=== PATIENT | female | born 1945 | race Caucasian/White ===

== ENCOUNTER 2016-03-04 12:25 | Inpatient (IN) | payer OTHER, MEDICARE ==
[~2016-03-04] VITALS: Ht 149.9 cm; Wt 74.8 kg
[~2016-03-04 12:25] MED LIST: ABILIFY 10 MG10 MG PO; ALENDRONATE SOD70 MG PO; CLONAZEPAM0.5 M2 PO; DIOVAN 160 MG160 MG PO; FLONASE120 SPRAY/ NASB; LEXAPRO 10MG10 MG PO; MULTIVITAMIN1 TAB PO; NORVASC 5MG TAB5 MG PO; OXYCODONE5 MG PO; SIMVASTATIN20 MG PO; TRAVATAN Z50 GTT/1 B OPH; VITAMIN B1100 MG PO
--- NOTE | 2016-03-04 12:25 | NUR ---
LAURA FROM HOME. LEGS BECAME WEAK LAST NIGHT (PT REPORTS THIS HAS HAPPENED TO HER BEFORE) AND SHE FELL TO THE FLOOR IN HER LIVING ROOM. REMEMBERS FALL AND DENIES LOC. FOUND THIS MORNING PRONE IN LIVING ROOM BY NEIGHBORS WHO CALLED EMS. C-COLLAR PLACED BY EMS. PAIN TO LEFT HIP WITH SHORTENING/EXTERNAL ROTATION NOTED. PAIN ON SLIGHT PALPATION TO HIP AREA BRUISING NOTED WELL. PMS NOTED DISTALLY TO HIP. TRIAGE NOTE BY NEO GALLAGHER RN
--- NOTE | 2016-03-04 12:26 | NUR ---
TO CT VIA STRETCHER.
--- NOTE | 2016-03-04 12:29 | ED MVC/FALL/TRAUMA COMPLAINT ---
History of Present Illness General Chief Complaint: Fall Stated Complaint: FALL Source: patient, old records Exam Limitations: no limitations Allergies Coded Allergies: Penicillins (Intermediate, HIVES 03/04/16) NO KNOWN ALLERGIES (10/15/15) Reconcile Medications Alendronate Sodium 70 MG TAB 1 TAB PO QW OSTEOPOROSIS (Reported) in the morning, at least 30 minutes before the first food, beverage, or medication of the day Amlodipine (Norvasc 5MG Tab) 5 MG TAB 1 TAB PO DAILY HTN (Reported) Aripiprazole (Abilify) 10 MG TAB 1 TAB PO DAILY ANXIETY (Reported) Clonazepam 0.5 MG TABLET 1 TAB PO BIDP PRN ANXIETY (Reported) Escitalopram Oxalate (Lexapro 10MG) 10 MG TAB 1 TAB PO DAILY ANXIETY ( Reported) Fluticasone Propionate (Flonase) 120 SPRAY/BOT SPR 2 SPRAY NASB DAILY HAY FEVER (Reported) Lactulose 10 GRAM/15 ML SOLUTION 15 ML PO BID CONSTIPATION (Reported) Lubiprostone (Amitiza) 24 MCG CAPSULE 1 CAP PO BID GI (Reported) Multivitamin (Multiple Vitamins) 1 TAB TAB 1 TAB PO D VITAMIN SUPP (Reported) Propranolol HCl 20 MG TABLET 1 TAB PO DAILY ANXIETY (Reported) Simvastatin (Zocor) 20 MG TAB 1 TAB PO QPM CHOLESTEROL (Reported) Thiamine (Vitamin B1) 100 MG TAB 1 TAB PO DAILY VITAMIN SUPP (Reported) Travoprost (Travatan Z Oph Beckie 0.004% 2.5ML) 50 GTT/1 BOT GTT 1 GTT OPH QPM GLAUCOMA (Reported) Valsartan (Diovan) 160 MG TAB 1 TAB PO DAILY HTN (Reported) Triage Nurses Notes Reviewed? yes Onset: Abrupt Duration: day(s): (2), constant Timing: recent history Severity: severe Severity Numbers: 10 Injuries/Fall Location: pelvis, lower extremity Method of Injury: fall Loss of Consciousness: no loss of consciousness Modifying Factors: Worsens With: movement. Associated Symptoms: denies HPI: 70-year-old female presents emergency room after she had a Mechanical fall last night around 6:00 when she states that her legs gave out causing her to fall to the ground. She now presents the emergency room complaining of left hip pain. She states that she was found by her neighbors this morning who called EMS and she was on the ground all night. The patient was given fentanyl in route by EMS with improvement in her pain. She states that she did not black out she denies any headache neck back chest or abdominal pain no arm or right leg pain. She is complaining of left leg pain emanating from the hip. No numbness or tingling she denies vomiting however states that she feels nauseous on arrival. There is no prodromal chest pain palpitations dizziness or lightheadedness prior to her fall (IZAIAH MOODY) Vital Signs & Intake/Output Vital Signs & Intake/Output Vital Signs Date Time Temp Pulse Resp B/P Pulse O2 O2 Flow FiO2 Ox Delivery Rate 03/04 1616 97.9 100 18 114/56 99 03/04 1411 98.4 102 18 97/64 97 03/04 1225 98 03/04 1225 98.2 106 22 114/60 98 Past History Travel History Traveled to [place] past 21 day No Medical History Any Pertinent Medical History? 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 No (IZAIAH MOODY) Review of Systems Review of Systems Constitutional: Reports: see HPI. All Other Systems: Reviewed and Negative Comments Review of systems: See HPI, All other systems negative. Constitutional, no chills no fever, no malaise HEENT: No visual changes no sore throat no congestion Cardiovascular: No chest pain , no palpitation Skin, n no rashes, no change in skin Respiratory: No dyspnea no cough no sputum GI: Nausea no vomiting, no diarrhea, : No dysuria Muscle skeletal: joint pain, no joint swelling, no back pain, no neck pain, Neurologic: No numbness no confusion, no headache Psych: No stress Heme/endocrine: No bruising no bleeding Immunology: No lymphadenopathy (IZAIAH MOODY) Physical Exam Physical Exam General Appearance: well developed/nourished, awake Comments: Well-developed well-nourished person in no acute distress HEENT: Normal EENT exam; PERRL, EOMI, no nystagmus. HEAD is atraumatic. moist mucous membranes. Neck: Supple, no midline tenderness atraumatic normal range of motion without pain or tenderness Back: Nontender, no CVA tenderness. Full range of motion Cardiovascular: Regular rate and rhythms no murmurs rubs Respiratory: Chest nontender.There were no bony deformities, no asymmetry. No respiratory distress. Patient speaking in full complete sentences. Breath sounds clear to auscultation bilaterally: NO W/R/R Abdomen: Soft, nontender nondistended, no appreciable organomegaly. Normal bowel sounds. No rebound/guarding, Shoulder: Atraumatic/Stable. FROM . Elbow: Atraumatic/stable. FROM. No laxity Upper arm/Forearm: Atraumatic. Nontender. 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 Skin intact. FROM Pulses: Normal/equal radial pulses bilaterally. Brisk cap refill Hip/Pelvis:Stable. Limited range of motion of the left hip secondary to pain Knee: Atraumatic/stable. FROM. No joint swelling, no effusion. No laxity. Leg: Left leg is externally rotated and shortened Nontender. No edema, 5 out of 5 strength in the lower extremity, normal dorsiflexion of great toe bilaterally, gross sensation is intact Ankle/Foot: Atraumatic/stable. Skin intact. FROM. No swelling, no effusion. No laxity on exam Pulses: Normal/equal DP/PT pulses bilaterally. Brisk cap refill Neuro: Alert oriented x3, motor sensory normal, There were no obvious focal neurologic abnormalities. Skin: No appreciable rash on exposed skin, skin is warm and dry. Psych: Mood and affect is normal, memory and judgment is normal. Core Measures ACS in differential dx? No Severe Sepsis Present: No BC x2: Yes Lactic Acid x2: Yes NS/LR Started: Yes Septic Shock Present: No (MARGARITO ABÑUELOS,IZAIAH) Progress Differential Diagnosis: abd injury, C/T/L spine injury, ext injury, ICH, pelvis injury, pnemothorax, spinal cord injury Diagnostic Imaging: Viewed by Me: CT Scan. Discussed w/RAD: CT Scan. Radiology Impression: PATIENT: BERYL PARRA PRESENT AGE: 70 PATIENT ACCOUNT NO: [id number] : 45 LOCATION: [facility] ORDERING PHYSICIAN: IZAIAH BAÑUELOS SERVICE DATE: 03/04/16- EXAM TYPE: CAT - CT CERV SPINE WO IV CONTRAST; CT HEAD WO IV CONTRAST EXAMINATION: CT OF THE HEAD WITHOUT CONTRAST CT SCAN OF THE CERVICAL SPINE WITHOUT CONTRAST CLINICAL INFORMATION: Trauma. Fall. COMPARISON: CT scan of the head dated 06/12/2010. TECHNIQUE: Contiguous axial imaging was performed from the skull base to vertex without intravenous administration of contrast. DLP: 929.84 mGy-cm. FINDINGS: CT SCAN OF THE HEAD: There is no evidence of acute intracranial hemorrhage or territorial infarction. No abnormal mass-effect or midline shift is seen. Farley to white matter differentiation is well preserved. No extra-axial fluid collections are identified. The ventricles and sulci are again found to be enlarged, very similar to the prior exam, consistent with age-related involutional change. Cavum septum vergae and pellucidum again noted. There is no abnormal attenuation within the brain parenchyma. Calcifications of the carotid siphons in the vertebrobasilar arteries are seen. Hyperostosis frontalis interna is noted. No acute calvarial fracture is seen. The osseous structures and soft tissues are normal. There is minimal partial opacification of some of the mastoid air cells, similar to the previous exam. The remaining mastoid air cells and visualized portions of the paranasal sinuses are otherwise well-aerated. CT SCAN OF THE CERVICAL SPINE: Anatomic variant of nonfusion of the posterior arch of C1 is seen. No acute fracture or dislocation is present. No abnormal prevertebral soft tissue swelling is noted. Craniocervical junction and atlantoaxial articulation are intact. There is a mild reversal of the normal cervical lordosis in the lower cervical spine, likely related to positioning within the cervical collar. There is moderate degenerative disc disease at C5-C6 and C6-C7 with disc space narrowing and vertebral endplate spurring and irregularities. There is moderate facet arthropathy, most severe along the right C4-C5 facet joint. IMPRESSION: 1. No acute intracranial pathology. 2. No acute cervical spine fracture or malalignment. 3. Age-related involutional changes in the brain, similar to prior exam. 4. Moderate degenerative disc disease in the lower cervical spine and multilevel facet arthropathy, most prominent along the right C4-C5 facet joint. DICTATED BY: YOMAIRA CARRASQUILLO MD DATE/TIME DICTATED:01/02/06 ACCOUNTS RECEIVABLE COLLECTOR:FRANC DATE/TIME TRANSCRIBED:03/04/161256 CONFIDENTIAL, DO NOT COPY WITHOUT APPROPRIATE AUTHORIZATION. <Electronically signed in Other Vendor System> SIGNED BY: YOMAIRA CARRASQUILLO MD 03/04/16 1324, PATIENT: BERYL PARRA PRESENT AGE: 70 PATIENT ACCOUNT NO: [id number] : 45 LOCATION: [facility] ORDERING PHYSICIAN: IZAIAH BAÑUELOS SERVICE DATE: 03/04/16- EXAM TYPE: CAT - CT ABD & PELVIS W/O IV CONTRAS; CT CHEST WO IV CONTRAST EXAMINATION: CT CHEST, ABDOMEN AND PELVIS WITHOUT CONTRAST CLINICAL INFORMATION: Trauma COMPARISON: CT abdomen pelvis 10/15/2015, CT chest 03/05/2009 TECHNIQUE: Multidetector volumetric CT imaging of the chest, abdomen and pelvis were obtained. Axial MIP volume rendering provided. Sagittal and coronal reformatted images were obtained. DLP: 693.20 mGy-cm. FINDINGS: CHEST: LUNGS: The central airways are patent. No focal consolidation, mass or suspicious pulmonary nodule is identified. Subsegmental atelectasis/scarring is noted within the left lower lobe. There is a stable 4 mm nodule within the anterior right upper lobe (image 238, series 5) dating back to 2009. No pneumothorax. MEDIASTINUM: Nonaneurysmal thoracic aorta. Normal cardiac size. No pericardial effusion. No mediastinal hematoma. Extensive coronary artery calcifications are noted. No mediastinal or hilar lymphadenopathy. Small calcified mediastinal lymph nodes are noted. PLEURA: There is no pleural effusion. No pleural mass or thickening. CHEST WALL/AXILLA: Soft tissues appear unremarkable. No axillary lymphadenopathy. ABDOMEN/PELVIS: LIVER, GALLBLADDER, AND BILIARY TREE: The unenhanced liver is normal in size, shape, and attenuation. No focal hepatic lesion or biliary ductal dilatation is present. Minimal dependent hyperdensity is seen within the gallbladder which may represent gravel or sludge. No gallbladder wall thickening or obvious pericholecystic inflammatory changes. PANCREAS: Unremarkable. SPLEEN: Unremarkable. ADRENAL GLANDS: Unremarkable. KIDNEYS AND URETERS: No hydronephrosis, nephrolithiasis or urolithiasis identified. Mild, nonspecific perinephric stranding. BLADDER: Grossly unremarkable. GASTROINTESTINAL TRACT: There is no bowel obstruction, free intraperitoneal air or fluid. The appendix is within normal limits. Diverticulosis is noted within the descending and sigmoid colon without CT evidence of acute diverticulitis. Large amount of stool is seen within the rectum and sigmoid colon. ABDOMINAL WALL: No significant hernia is appreciated. LYMPH NODES: No mesenteric, retroperitoneal or pelvic lymphadenopathy. VASCULAR: Nonaneurysmal abdominal aorta containing a post carotid calcification. PELVIC VISCERA: Lobular contour of the uterus again noted , likely related to underlying uterine fibroids. Of note, the endometrial cavity appears prominent measuring up to 2 cm in AP diameter, unchanged, which is thicker than expected for a postmenopausal female. This thickening may be related to an underlying fibroid rather than the endometrium. Further evaluation can be obtained with dedicated pelvic ultrasound. No adnexal masses are identified. No pelvic free fluid. OSSEOUS STRUCTURES: Osteopenia is noted. There is an old lateral left third rib fracture. There is an acute, comminuted, mildly displaced intertrochanteric fracture of the left femur. Surrounding soft tissue swelling and intramuscular thickening noted within the left thigh and iliopsoas muscle. The pelvis appears intact. No other acute fractures are identified. Chronic compression deformity of the L4 and L3 vertebral bodies. T12 vertebral augmentation changes noted. No aggressive osseous lesions. IMPRESSION: 1. No acute intrathoracic, abdominal or pelvic abnormality. 2. Acute comminuted left intertrochanteric hip fracture. No dislocation. No other acute fractures identified. 3. Other findings as described above. DICTATED BY: TOMAS CORADO DO DATE/TIME DICTATED:03/04/161257 ACCOUNTS RECEIVABLE COLLECTOR:FRANC DATE/TIME TRANSCRIBED:03/04/161257 CONFIDENTIAL, DO NOT COPY WITHOUT APPROPRIATE AUTHORIZATION. <Electronically signed in Other Vendor System> SIGNED BY: TOMAS CORADO DO 03/04/16 1321 Initial ED EKG: SINUS TACH AT 100, NO ACUTE st SEGMENT CHANGES NORMAL AXIS (IZAIAH MOODY) Plan of Care: Orders Procedure Date/time Status Nothing by Mouth 03/05 B Active Discontinue Telemetry/Monitor 03/04 1702 Active Misc Message 03/04 1635 Active ED Holding Orders 03/04 1635 Active Vital Signs 03/04 1635 Active Code Status 03/04 1635 Active Admit to inpatient 03/04 1634 Active Patient Data 03/04 1625 Active LACTIC ACID 03/04 1538 Complete BLOOD CULTURE 03/04 1533 Active URINALYSIS 03/04 1445 Active Intake & Output 03/04 1436 Active PROTHROMBIN TIME 03/04 1340 Complete TYPE & SCREEN (NOT X-MATCH) 03/04 1340 Complete [place], Insertion/Removal/Asses 03/04 1254 Active CULTURE,URINE 03/04 1254 Active Telemetry/Patient Access Director 03/04 1238 Active LACTIC ACID 03/04 1238 Complete COMPREHENSIVE METABOLIC PANEL 03/04 1238 Complete CREATINE PHOSPHOKINASE 03/04 1238 Complete CBC WITHOUT DIFFERENTIAL 03/04 1238 Complete EKG 03/04 1238 Active Current Medications Sig/Erinn Start time Last Medication Dose Stop Time Status Admin Clonazepam 0.5 MG ONCE ONE 03/04 1715 UNVr (KlonoPIN) 03/04 171 Propranolol HCl 20 MG ONCE ONE 03/04 171 UNVr (Inderal 20 MG 03/04 1715 Tablet) Laboratory Tests 03/04/16 1642: Lactic Acid 1.6 03/04/16 1352: Anion Gap 19 H, Estimated GFR 40 L, BUN/Creatinine Ratio 26.2 H, Glucose 131 H, Lactic Acid 2.5 H, Calcium 9.9, Total Bilirubin 2.2 H, AST 88 H, ALT 50, Alkaline Phosphatase 94, Creatine Kinase 3981 H, Total Protein 7.0, Albumin 4.4 , Globulin 2.6, Albumin/Globulin Ratio 1.7, PT 12.7 H, INR 1.21 H, CBC w Diff MAN DIFF ORDERED, RBC 4.35, MCV 86.7, MCH 29.4, RDW 13.9, MPV 8.0, Gran % 84.7 H, Lymphocytes % 5.3 L, Monocytes % 10.0 H, Eosinophils % 0, Basophils % 0 L, Absolute Granulocytes 16.6 H, Segmented Neutrophils 78 H, Band Neutrophils 8 H, Absolute Lymphocytes 1.0 L, Lymphocytes 7 L, Monocytes 7, Absolute Monocytes 2.0 H, Absolute Eosinophils 0, Absolute Basophils 0, Platelet Estimate VERIFIED BY SMEAR, Normocytic RBCs VERIFIED, Normochromic RBCs VERIFIED , PUBS MCHC 34.0 Microbiology 03/04 1642 BLOOD: Blood Culture - RECD 03/04 1533 BLOOD: Blood Culture - ORD 03/04 1315 URINE ROUT: Urine Culture - RECD Labs ordered patient medicated morphine 2 mg IV she was medicated with fentanyl prior to arrival by EMS CAT scans ordered 03/04/2016 12:55:15 PM patient reports pain has improved with morphine, discussed with her CAT scan results and need for admission-call was placed to ortho case was discussed with Dr. Panchal. 03/04/2016 3:12:38 PM still pending callback from orthopedist dr bermudez. Patient's denies pain at this time IV fluids are running patient was evaluated by Dr. Panchal 03/04/2016 3:27:46 PM spoke with deeper surgical PA sera who will evaluate the patient still pending callback from orthopedist. on repeat eval pt declining anything for pain when offered. 03/04/2016 3:53:37 PM surgical PA at bedside still pending callback as they're having difficulty reaching Dr. bermudez as well, case d/w dr leelee courtney admit to medicine. iv fluids runing 03/04/2016 4:47:03 PM case discussed with Dr. BERMUDEZ will come in to eval pt (IZAIAH MOODY) Departure Departure Time of Disposition: 1609 Disposition: STILL A PATIENT Condition: Stable Clinical Impression Primary Impression: Intertrochanteric fracture of left hip Secondary Impressions: Lactic acidosis, Rhabdomyolysis Referrals: RORO MERAZ,FAWAD Aleman (PCP/Family) Departure Forms: Customer Survey General Discharge Information Admission Note Spoke With: GRACIELA MERAZ,JUSTINO Documentation of Exam: Documentation of any treatments & extenuating circumstances including Concerns Regarding Discharge (functional status, medication knowledge or non-compliance, living conditions, etc.) that warrant an admission rather than observation: Patient woke her medical clearance IV fluids trend labs prior to OR fixation ortho consult (IZAIAH MOODY) PA/INTERMEDIATE TEACHER Co-Sign Statement Statement: ED Attending supervision documentation- [X] I saw and evaluated the patient. I have also reviewed all the pertinent lab results and diagnostic results. I agree with the findings and the plan of care as documented in the PA's/INTERMEDIATE TEACHER's documentation. [] I have reviewed the ED Record and agree with the PA's/INTERMEDIATE TEACHER's documentation. [] Additions or exceptions (if any) to the PAs/INTERMEDIATE TEACHER's note and plan are summarized below: [] (VICTOR MANUEL MERAZ,KATYA Nguyen)
[2016-03-04] MEDS ORDERED: LACTULOSE10 GM/152 PO (12:35)
[2016-03-04] MEDS ORDERED: PROPRANOLOL HCL20 M1 PO (12:36)
[2016-03-04] MEDS ORDERED: AMITIZA24 MC1 PO (12:36)
--- NOTE | 2016-03-04 13:15 | NUR ---
EVALUATED BY EDDA PIMENTEL IMMEDIATLY ON ARRIVAL. MEDICATED BY NEO GALLAGHER RN PRIOR TO CT (SEE EMAR) AND CURRENTLY REPORTS NO PAIN AT MOVEMENT. RE-EVAL BY EDDA AFTER CT.
--- NOTE | 2016-03-04 13:21 | CT SCAN REPORT ---
EXAMINATION: CT CHEST, ABDOMEN AND PELVIS WITHOUT CONTRAST CLINICAL INFORMATION: Trauma COMPARISON: CT abdomen pelvis 10/15/2015, CT chest 03/05/2009 TECHNIQUE: Multidetector volumetric CT imaging of the chest, abdomen and pelvis were obtained. Axial MIP volume rendering provided. Sagittal and coronal reformatted images were obtained. DLP: 693.20 mGy-cm. FINDINGS: CHEST: LUNGS: The central airways are patent. No focal consolidation, mass or suspicious pulmonary nodule is identified. Subsegmental atelectasis/scarring is noted within the left lower lobe. There is a stable 4 mm nodule within the anterior right upper lobe (image 238, series 5) dating back to 2009. No pneumothorax. MEDIASTINUM: Nonaneurysmal thoracic aorta. Normal cardiac size. No pericardial effusion. No mediastinal hematoma. Extensive coronary artery calcifications are noted. No mediastinal or hilar lymphadenopathy. Small calcified mediastinal lymph nodes are noted. PLEURA: There is no pleural effusion. No pleural mass or thickening. CHEST WALL/AXILLA: Soft tissues appear unremarkable. No axillary lymphadenopathy. ABDOMEN/PELVIS: LIVER, GALLBLADDER, AND BILIARY TREE: The unenhanced liver is normal in size, shape, and attenuation. No focal hepatic lesion or biliary ductal dilatation is present. Minimal dependent hyperdensity is seen within the gallbladder which may represent gravel or sludge. No gallbladder wall thickening or obvious pericholecystic inflammatory changes. PANCREAS: Unremarkable. SPLEEN: Unremarkable. ADRENAL GLANDS: Unremarkable. KIDNEYS AND URETERS: No hydronephrosis, nephrolithiasis or urolithiasis identified. Mild, nonspecific perinephric stranding. BLADDER: Grossly unremarkable. GASTROINTESTINAL TRACT: There is no bowel obstruction, free intraperitoneal air or fluid. The appendix is within normal limits. Diverticulosis is noted within the descending and sigmoid colon without CT evidence of acute diverticulitis. Large amount of stool is seen within the rectum and sigmoid colon. ABDOMINAL WALL: No significant hernia is appreciated. LYMPH NODES: No mesenteric, retroperitoneal or pelvic lymphadenopathy. VASCULAR: Nonaneurysmal abdominal aorta containing a post carotid calcification. PELVIC VISCERA: Lobular contour of the uterus again noted, likely related to underlying uterine fibroids. Of note, the endometrial cavity appears prominent measuring up to 2 cm in AP diameter, unchanged, which is thicker than expected for a postmenopausal female. This thickening may be related to an underlying fibroid rather than the endometrium. Further evaluation can be obtained with dedicated pelvic ultrasound. No adnexal masses are identified. No pelvic free fluid. OSSEOUS STRUCTURES: Osteopenia is noted. There is an old lateral left third rib fracture. There is an acute, comminuted, mildly displaced intertrochanteric fracture of the left femur. Surrounding soft tissue swelling and intramuscular thickening noted within the left thigh and iliopsoas muscle. The pelvis appears intact. No other acute fractures are identified. Chronic compression deformity of the L4 and L3 vertebral bodies. T12 vertebral augmentation changes noted. No aggressive osseous lesions. IMPRESSION: 1. No acute intrathoracic, abdominal or pelvic abnormality. 2. Acute comminuted left intertrochanteric hip fracture. No dislocation. No other acute fractures identified. 3. Other findings as described above.
--- NOTE | 2016-03-04 13:24 | CT SCAN REPORT ---
EXAMINATION: CT OF THE HEAD WITHOUT CONTRAST CT SCAN OF THE CERVICAL SPINE WITHOUT CONTRAST CLINICAL INFORMATION: Trauma. Fall. COMPARISON: CT scan of the head dated 06/12/2010. TECHNIQUE: Contiguous axial imaging was performed from the skull base to vertex without intravenous administration of contrast. DLP: 929.84 mGy-cm. FINDINGS: CT SCAN OF THE HEAD: There is no evidence of acute intracranial hemorrhage or territorial infarction. No abnormal mass-effect or midline shift is seen. Farley to white matter differentiation is well preserved. No extra-axial fluid collections are identified. The ventricles and sulci are again found to be enlarged, very similar to the prior exam, consistent with age-related involutional change. Cavum septum vergae and pellucidum again noted. There is no abnormal attenuation within the brain parenchyma. Calcifications of the carotid siphons in the vertebrobasilar arteries are seen. Hyperostosis frontalis interna is noted. No acute calvarial fracture is seen. The osseous structures and soft tissues are normal. There is minimal partial opacification of some of the mastoid air cells, similar to the previous exam. The remaining mastoid air cells and visualized portions of the paranasal sinuses are otherwise well-aerated. CT SCAN OF THE CERVICAL SPINE: Anatomic variant of nonfusion of the posterior arch of C1 is seen. No acute fracture or dislocation is present. No abnormal prevertebral soft tissue swelling is noted. Craniocervical junction and atlantoaxial articulation are intact. There is a mild reversal of the normal cervical lordosis in the lower cervical spine, likely related to positioning within the cervical collar. There is moderate degenerative disc disease at C5-C6 and C6-C7 with disc space narrowing and vertebral endplate spurring and irregularities. There is moderate facet arthropathy, most severe along the right C4-C5 facet joint. IMPRESSION: 1. No acute intracranial pathology. 2. No acute cervical spine fracture or malalignment. 3. Age-related involutional changes in the brain, similar to prior exam. 4. Moderate degenerative disc disease in the lower cervical spine and multilevel facet arthropathy, most prominent along the right C4-C5 facet joint.
[2016-03-04 14:18] LABS: ABSOLUTE BASOPHIL COUNT 0 /CUMM (0.0-0.2); ABSOLUTE EOSINOPHIL COUNT 0 /CUMM (0.0-0.7); ABSOLUTE GRANULOCYTE CT 16.6 /CUMM (1.4-6.5); BASOPHIL % 0 % (0.0-2.0); EOSINOPHIL % 0 % (0-5); GRANULOCYTE % 84.7 % (42.2-75.2); HEMATOCRIT 37.7 % (37-47); MEAN CORPUSCULAR HGB 29.4 PG (27.0-31.0); MEAN CORPUSCULAR VOLUME 86.7 FL (81.0-99.0); PLATELET COUNT 250 /CUMM (130-400); RBC DISTRIBUTION WIDTH 13.9 % (11.5-14.5); RED BLOOD CELL CT 4.35 /CUMM (4.20-5.40); WHITE BLOOD CELL COUNT 19.6 /CUMM (4.8-10.8)
--- NOTE | 2016-03-04 14:23 | NUR ---
BLOOD SENT BY [facility]. ALMENDAREZ INSERTED BY CO AND URINE TRIO SENT. PT ALERT, DENIES PAIN AT REST THOUGH C/O SEVERE PAIN WITH ANY MVMT. PA INFORMED PT OF HIP FX AND PLAN FOR ADMIT/OR. PT POSITIONED FOR COMFORT. IVF INFUSING NOW.
[2016-03-04 14:30] LABS: PT 12.7 SEC (9.4-12.5)
--- NOTE | 2016-03-04 14:46 | NUR ---
CRITICAL TEST RESULTS [id number] BERYL PARRA 70 F TESTS AND RESULTS: LACTIC ACID 2.5 Results received and read back by: CESILIA OSEI Results received date and time: 03/04/16 1446 The following provider was notified of the results, and read the results back: EDDA PIMENTEL Notified date and time: 03/04/16 at 1445
--- NOTE | 2016-03-04 16:26 | Cons- Orthopedic ---
VENKATA EARL 03/04/16 1611: General Information and HPI Consulting Request Date of Consult: 03/04/16 Requested By: Jamari Latif MD Reason for Consult: Left hip fracture Source of Information: patient Exam Limitations: no limitations History of Present Illness: HPI: 70-year-old female presents emergency room after she had a Mechanical fall last night around 6:00 when she states that her legs gave out causing her to fall to the ground. She now presents the emergency room complaining of left hip pain. She states that she was found by her neighbors this morning who called EMS and she was on the ground all night. The patient was given fentanyl in route by EMS with improvement in her pain. She states that she did not black out she denies any headache neck back chest or abdominal pain no arm or right leg pain. She is complaining of left leg pain emanating from the hip. No numbness or tingling she denies vomiting however states that she felt nauseous on arrival, symptoms improved with anti-emetic. There is no prodromal chest pain palpitations dizziness or lightheadedness prior to her fall Allergies/Medications Allergies: Coded Allergies: Penicillins (Intermediate, HIVES 03/04/16) NO KNOWN ALLERGIES (10/15/15) Past History Medical History Neurological: Parkinson's disease EENT: glaucoma Cardiovascular: hypertension, hyperlipidemia Respiratory: TRACHEOTOMY Gastrointestinal: CONSTIPATION Hepatic: NONE Renal: NONE Musculoskeletal: chronic back pain, fracture, FOOT,SUE ARM COMPRESSION FX Psychiatric: anxiety Endocrine: NONE Blood Disorders: NONE Cancer(s): NONE [employer]ER/Reproductive: NONE Surgical History Pertinent Surgical History: none (trach due to sepsis), TRACHEOTOMY Psychosocial History Services at Home: None Review of Systems Review of Systems Constitutional: Reports: see HPI. EENTM: Reports: no symptoms. Cardiovascular: Reports: no symptoms. Respiratory: Reports: no symptoms. GI: Reports: no symptoms. Genitourinary: Reports: no symptoms. Musculoskeletal: Reports: see HPI. Skin: Reports: no symptoms. Neurological/Psychological: Reports: anxiety, pre-existing deficit. Hematologic/Endocrine: Reports: no symptoms. Immunologic/Allergic: Reports: no symptoms. All Other Systems: Reviewed and Negative Exam & Diagnostic Data Vital Signs and I&O Vital Signs Date Time Temp Pulse Resp B/P Pulse O2 O2 Flow FiO2 Ox Delivery Rate 03/04 1411 98.4 102 18 97/64 97 03/04 1225 98 03/04 1225 98.2 106 22 114/60 98 Intake & Output 03/04 1600 03/04 0800 03/04 0000 03/03 0000 Intake Total Output Total 400 Balance -400 Output, Urine 400 Patient 158 lb Weight Physical Exam: General: Alert and oriented x3, no acute distress Cardiac: RRR, s1s2 Pulmonary: Bilateral lung sounds clear to auscultation, anterior Abdomen: Soft, obese, non-tender, non-distended Extremities: Moves all extremities, appears to have resting tremor more pronounced presently in right leg, left leg shortened and externally rotated, motor 4/5 in plantar and dorsi flexion bialterally, left thigh compartment soft, skin warm and well perfused, dp and pt pulses palpable bilaterally, mild peripheral edema bilateral feet and ankles, bilateral calves soft and non-tender Last 24 Hours of Labs: Laboratory Tests 03/04 1352 Chemistry Sodium (137 - 145 mmol/L) 140 Potassium (3.5 - 5.1 mmol/L) 4.7 Chloride (98 - 107 mmol/L) 100 Carbon Dioxide (22 - 30 mmol/L) 21 L Anion Gap (5 - 16) 19 H BUN (7 - 17 mg/dL) 34 H Creatinine (0.5 - 1.0 mg/dL) 1.3 H Estimated GFR (>60 ml/min) 40 L BUN/Creatinine Ratio (7 - 25 %) 26.2 H Glucose (65 - 99 mg/dL) 131 H Lactic Acid (0.7 - 2.1 mmol/L) 2.5 H Calcium (8.4 - 10.2 mg/dL) 9.9 Total Bilirubin (0.2 - 1.3 mg/dL) 2.2 H AST (14 - 36 U/L) 88 H ALT (9 - 52 U/L) 50 Alkaline Phosphatase (<127 U/L) 94 Creatine Kinase (30 - 135 U/L) 3981 H Total Protein (6.3 - 8.2 g/dL) 7.0 Albumin (3.5 - 5.0 g/dL) 4.4 Globulin (1.9 - 4.2 gm/dL) 2.6 Albumin/Globulin Ratio (1.1 - 2.2 %) 1.7 Coagulation PT (9.4 - 12.5 SEC) 12.7 H INR (0.90 - 1.19) 1.21 H Hematology CBC w Diff MAN DIFF ORDERED WBC (4.8 - 10.8 /CUMM) 19.6 H RBC (4.20 - 5.40 /CUMM) 4.35 Hgb (12.0 - 16.0 G/DL) 12.8 Hct (37 - 47 %) 37.7 MCV (81.0 - 99.0 FL) 86.7 MCH (27.0 - 31.0 PG) 29.4 RDW (11.5 - 14.5 %) 13.9 Plt Count (130 - 400 /CUMM) 250 MPV (7.4 - 10.4 FL) 8.0 Gran % (42.2 - 75.2 %) 84.7 H Lymphocytes % (20.5 - 51.1 %) 5.3 L Monocytes % (1.7 - 9.3 %) 10.0 H Eosinophils % (0 - 5 %) 0 Basophils % (0.0 - 2.0 %) 0 L Absolute Granulocytes (1.4 - 6.5 /CUMM) 16.6 H Segmented Neutrophils (42.2 - 75.2 %) 78 H Band Neutrophils (0.0 - 5.0 %) 8 H Absolute Lymphocytes (1.2 - 3.4 /CUMM) 1.0 L Lymphocytes (20.5 - 51.1 %) 7 L Monocytes (1.7 - 9.3 %) 7 Absolute Monocytes (0.10 - 0.60 /CUMM) 2.0 H Absolute Eosinophils (0.0 - 0.7 /CUMM) 0 Absolute Basophils (0.0 - 0.2 /CUMM) 0 Platelet Estimate (ADEQUATE) VERIFIED BY SMEAR Normocytic RBCs VERIFIED Normochromic RBCs VERIFIED PUBS MCHC (33.0 - 37.0 G/DL) 34.0 Imaging Results: SERVICE DATE: 03/04/16- EXAM TYPE: CAT - CT ABD & PELVIS W/O IV CONTRAS; CT CHEST WO IV CONTRAST EXAMINATION: CT CHEST, ABDOMEN AND PELVIS WITHOUT CONTRAST CLINICAL INFORMATION: Trauma COMPARISON: CT abdomen pelvis 10/15/2015, CT chest 03/05/2009 TECHNIQUE: Multidetector volumetric CT imaging of the chest, abdomen and pelvis were obtained. Axial MIP volume rendering provided. Sagittal and coronal reformatted images were obtained. DLP: 693.20 mGy-cm. FINDINGS: CHEST: LUNGS: The central airways are patent. No focal consolidation, mass or suspicious pulmonary nodule is identified. Subsegmental atelectasis/scarring is noted within the left lower lobe. There is a stable 4 mm nodule within the anterior right upper lobe (image 238, series 5) dating back to 2009. No pneumothorax. MEDIASTINUM: Nonaneurysmal thoracic aorta. Normal cardiac size. No pericardial effusion. No mediastinal hematoma. Extensive coronary artery calcifications are noted. No mediastinal or hilar lymphadenopathy. Small calcified mediastinal lymph nodes are noted. PLEURA: There is no pleural effusion. No pleural mass or thickening. CHEST WALL/AXILLA: Soft tissues appear unremarkable. No axillary lymphadenopathy. ABDOMEN/PELVIS: LIVER, GALLBLADDER, AND BILIARY TREE: The unenhanced liver is normal in size, shape, and attenuation. No focal hepatic lesion or biliary ductal dilatation is present. Minimal dependent hyperdensity is seen within the gallbladder which may represent gravel or sludge. No gallbladder wall thickening or obvious pericholecystic inflammatory changes. PANCREAS: Unremarkable. SPLEEN: Unremarkable. ADRENAL GLANDS: Unremarkable. KIDNEYS AND URETERS: No hydronephrosis, nephrolithiasis or urolithiasis identified. Mild, nonspecific perinephric stranding. BLADDER: Grossly unremarkable. GASTROINTESTINAL TRACT: There is no bowel obstruction, free intraperitoneal air or fluid. The appendix is within normal limits. Diverticulosis is noted within the descending and sigmoid colon without CT evidence of acute diverticulitis. Large amount of stool is seen within the rectum and sigmoid colon. ABDOMINAL WALL: No significant hernia is appreciated. LYMPH NODES: No mesenteric, retroperitoneal or pelvic lymphadenopathy. VASCULAR: Nonaneurysmal abdominal aorta containing a post carotid calcification. PELVIC VISCERA: Lobular contour of the uterus again noted, likely related to underlying uterine fibroids. Of note, the endometrial cavity appears prominent measuring up to 2 cm in AP diameter, unchanged, which is thicker than expected for a postmenopausal female. This thickening may be related to an underlying fibroid rather than the endometrium. Further evaluation can be obtained with dedicated pelvic ultrasound. No adnexal masses are identified. No pelvic free fluid. OSSEOUS STRUCTURES: Osteopenia is noted. There is an old lateral left third rib fracture. There is an acute, comminuted, mildly displaced intertrochanteric fracture of the left femur. Surrounding soft tissue swelling and intramuscular thickening noted within the left thigh and iliopsoas muscle. The pelvis appears intact. No other acute fractures are identified. Chronic compression deformity of the L4 and L3 vertebral bodies. T12 vertebral augmentation changes noted. No aggressive osseous lesions. IMPRESSION: 1. No acute intrathoracic, abdominal or pelvic abnormality. 2. Acute comminuted left intertrochanteric hip fracture. No dislocation. No other acute fractures identified. 3. Other findings as described above. CT OF THE HEAD WITHOUT CONTRAST CT SCAN OF THE CERVICAL SPINE WITHOUT CONTRAST CLINICAL INFORMATION: Trauma. Fall. COMPARISON: CT scan of the head dated 06/12/2010. TECHNIQUE: Contiguous axial imaging was performed from the skull base to vertex without intravenous administration of contrast. DLP: 929.84 mGy-cm. FINDINGS: CT SCAN OF THE HEAD: There is no evidence of acute intracranial hemorrhage or territorial infarction. No abnormal mass-effect or midline shift is seen. Farley to white matter differentiation is well preserved. No extra-axial fluid collections are identified. The ventricles and sulci are again found to be enlarged, very similar to the prior exam, consistent with age-related involutional change. Cavum septum vergae and pellucidum again noted. There is no abnormal attenuation within the brain parenchyma. Calcifications of the carotid siphons in the vertebrobasilar arteries are seen. Hyperostosis frontalis interna is noted. No acute calvarial fracture is seen. The osseous structures and soft tissues are normal. There is minimal partial opacification of some of the mastoid air cells, similar to the previous exam. The remaining mastoid air cells and visualized portions of the paranasal sinuses are otherwise well-aerated. CT SCAN OF THE CERVICAL SPINE: Anatomic variant of nonfusion of the posterior arch of C1 is seen. No acute fracture or dislocation is present. No abnormal prevertebral soft tissue swelling is noted. Craniocervical junction and atlantoaxial articulation are intact. There is a mild reversal of the normal cervical lordosis in the lower cervical spine, likely related to positioning within the cervical collar. There is moderate degenerative disc disease at C5-C6 and C6-C7 with disc space narrowing and vertebral endplate spurring and irregularities. There is moderate facet arthropathy, most severe along the right C4-C5 facet joint. IMPRESSION: 1. No acute intracranial pathology. 2. No acute cervical spine fracture or malalignment. 3. Age-related involutional changes in the brain, similar to prior exam. 4. Moderate degenerative disc disease in the lower cervical spine and multilevel facet arthropathy, most prominent along the right C4-C5 facet joint. Assessment/Plan Assessment/Plan This is a 70 year old female, hospital day 0, biba s/p fall one day ago. The patient was immobile for several hours following fall. PMH significant for questionable parkinsons, htn, hld, and anxiety. Upon admission to hospital ER, ct scans were obtained of head, chest, neck and pelvis. There were no cranial abnormalities noted, no abdominal or thoracic abnormalities, there is evidence of a left intertrochanteric fracture that is mildly displaced. Labs were obtained. Special attention is being paid to Creatine Kinase, BUN, Creatinine as well as lfts as labs are suggestive of rhabdomyolysis. Furthermore, patient is mildly tachycardic with resting hr in 100s. Her urine is concentrated. -Plan is to admit to medical services for medical optimization -Case will be discussed with Dr. Beckham and Dr. Latif -Patient will require ORIF left intertrochanteric hip fracture when medically stable Consult Acknowledgment - Thank you for your consult request. LARA MERAZ,JAMARI Winchester 03/05/16 0800: General Information and HPI Consulting Request Date of Consult: 03/04/16 Requested By: DAYAN MERAZ,LUIS Mckeon Reason for Consult: Left hip intertrochanteric fracture Source of Information: Other ([facility] EHR for current admission and limited information from prior hospital admission), Other (ER, medical and nursing service verbal reports) Exam Limitations: clinical condition (limit mobility evn prior to fx), poor historian (limited detail re: injury), physical impairment (Pt bedridden d/t hip fx pain), Pain (severe hip pain even with minimal log-roll motion testing), Sedation due to ER pain medication treatment for fracture (moderate sedation due to pain medication but still able to complete comprehensive and diagnostic history and physical examination), Underlying neurologic condition affecting generalized motor function Allergies/Medications Home Med List: Alendronate Sodium 70 MG TAB 1 TAB PO QW OSTEOPOROSIS (Reported) in the morning, at least 30 minutes before the first food, beverage, or medication of the day Amlodipine (Norvasc 5MG Tab) 5 MG TAB 1 TAB PO DAILY HTN (Reported) Enoxaparin Sodium (Lovenox) 40 MG/0.4 ML SYRINGE 0.4 ML SC DAILY dvt prophylaxis Escitalopram Oxalate (Lexapro 10MG) 10 MG TAB 1 TAB PO DAILY ANXIETY ( Reported) Fluticasone Propionate (Flonase) 120 SPRAY/BOT SPR 2 SPRAY NASB DAILY HAY FEVER (Reported) Lactulose 10 GRAM/15 ML SOLUTION 15 ML PO BID CONSTIPATION (Reported) Lubiprostone (Amitiza) 24 MCG CAPSULE 1 CAP PO BID GI (Reported) Multivitamin (Multiple Vitamins) 1 TAB TAB 1 TAB PO D VITAMIN SUPP (Reported) Propranolol HCl 20 MG TABLET 1 TAB PO DAILY ANXIETY (Reported) Simvastatin (Zocor) 20 MG TAB 1 TAB PO QPM CHOLESTEROL (Reported) Thiamine (Vitamin B1) 100 MG TAB 1 TAB PO DAILY VITAMIN SUPP (Reported) Travoprost (Travatan Z Oph Beckie 0.004% 2.5ML) 50 GTT/1 BOT GTT 1 GTT OPH QPM GLAUCOMA (Reported) Valsartan (Diovan) 160 MG TAB 1 TAB PO DAILY HTN (Reported) Warfarin Sodium (Coumadin) 5 MG TABLET 1 TAB PO DAILY dvt prophylaxis please dose coumadin according to daily INR. Contiune lovenox until INR therapeutic goal 2-3. Continue coumadin(dose according to daily INR ) till 04/09/16 for dvt prophylaxis s/p hip fx surgery. Assessment/Plan Consult Acknowledgment - Thank you for your consult request. Attending MD Review Statement Attending Statement Attending MD Statement: examined this patient, discuss w/resident/PA/PULMONARY NURSE PRACTITIONER, agreed w/resident/PA/PULMONARY NURSE PRACTITIONER, discussed with family ((Cousin)), reviewed EMR data (avail), discussed w/nursing, reviewed images, After direct and indirect discussion with primary admitting medical team regarding relative risks and benefits of timing of various surgical interventions, it was determined that the optimized treatment would be for medical optimization until laboratory abnormalities were at least demonstrated to be trending toward normalization with no suggestion of severe rhabdomyolysis or organ system sequelae of that or other medical or trauma related conditions. Once overall medical condition is at least trending toward stable status we can proceed with ORIF. We will prepare for this tomorrow and the patient will be NPO past MN on 03/04/2016 in preparation for possible surgery on 03/05/2016. Attending Assessment/Plan: Ember Myers is a 70 year old white female with a comminuted left intertrochanteric hip fracture which will require emergent ORIF once her medical status has been optimized and she is cleared for surgery. Her pertinent PMHx includes HTN, HLE, glaucoma, multiple lumbar and lower thoracic compression fractures, spondylosis and moderate stenosis as well as recent workup for Parkinson's Disease (although the patient and cousin are not certain that a formal Dx has been made). She lives alone, has had deteriorating balance and ambulatory status which has been evaluated by primary care over an unspecified period of time (possibly a year or more), and is now a walker-dependent ambulator although she frequently tries to use a cane around her house. She has reported previous weakness in her legs but no outside records are available for review of any workup or diagnoses which might account for this. She reports that her leg gave way last PM (03/03/2016) at ~06:00 PM and she fell from a standing height on her left side impacting her lateral hip without other significant impact or injury. She was unable to get herself off the floor, crawl or contact anyone for help. She was found this AM (03/04/2016) by her neighbors and was brought by EMS to the hospital. Although she has been hemodynamically stable since presentation, she has had some tachycardia. On examination, her left lower extremity is shortened and externally rotated consistent with the intertrochanteric fracture confirmed on radiographic studies. She is grossly neurovascularly intact distally in the left lower extremity and there is no evidence of other injury or fracture by palpation. The rest of her left lower extremity evaluation is normal to the degree that he can't be assessed given the limitation of motion and motor exam testing due to her hip fracture. Her right lower extremity and both upper extremities are normal. Her head and neck evaluation, as well as her torso assessment are normal. Comprehensive multisystem trauma evaluation was negative except for her hip fracture. She has a mild to moderate tremor which she states is her baseline. There is no cogwheel rigidity. There is no other suggestion of Parkinson's disease, although she does have a somewhat flattened affect. Her general central neurologic and cognitive assessment is normal. There is no evidence of other trauma. Although her physical examination does not show severe ecchymosis or hematoma formation, there is the suggestion of prolonged pressure phenomenon consistent with her history of being on the floor overnight and this is associated with significant laboratory changes including creatinine kinase elevation (3981) and elevated LFTs suggestive of rhabdomyolysis. After discussion with the medical service it was decided that the patient would be admitted to medicine for stabilization and clearance prior to left hip ORIF. The patient denies any other areas of injury. Her radiographs confirm a comminuted, displaced and rotated intertrochanteric fracture with no other significant findings except for mild to moderate density changes suggestive of osteoporosis and mild to moderate degenerative changes suggestive of osteoarthritis. Her laboratory abnormalities are described above and elsewhere in this note. Once her labs have begun to normalize, consideration will be made for anesthetic and surgical clearance. She will otherwise be prepared for surgery, which will hopefully take place over the next several days. Once she is cleared medically. For now she will remain NPO after midnight in possible preparation for surgery tomorrow. Other than hydration and other treatment/ monitoring protocols for rhabdomyolysis as well as any other medical protocols that may be required, she will follow the usual treatment protocols for intertrochanteric hip fracture in terms of surgical and perioperative management.
--- NOTE | 2016-03-04 17:00 | History & Physical ---
NOHEMI MERAZ,[facility] 03/04/16 1658: General Information and HPI Source of Information: patient Exam Limitations: no limitations History of Present Illness: This is 70-year-old female with past medical history of hypertension, hyperlipidemia, Parkinson's disease, chronic back pain, anxiety presents to emergency room evaluation after a fall. As per patient around 6:00pm yesterday she had the feeling of the partly legs gave up on her in the next thing she found herself on the floor, she denied any dizziness, syncope, palpitation, chest pain, blackouts prior to the fall. She has been on the floor for the whole night to her neighbor checked on her this a.m. as he didn't hear back from her and called EMS and that's when she was brought in for further evaluation she denies any headache neck back chest or abdominal pain no arm or right leg pain. She follows Dr. Jacques but unsure why exactly she sees him, diagnosis of Parkinson's, will confirm with Dr. Jacques services in a.m. And get records from their office. She was complaining of pain in her right hip and leg during the encounter. Denies any nausea, vomiting, abdominal pain, recent is, any changes in bowel movements. She denies smoking, drinks moderate amount of alcohol, denies any illicit drug abuse He lives alone by herself in her home. She does not use a walker at baseline, is able to do her daily chores by herself without any difficulty except for driving and shopping which her cousin does for her. Allergies/Medications Allergies: Coded Allergies: Penicillins (Intermediate, HIVES 03/04/16) NO KNOWN ALLERGIES (10/15/15) Compliance With Home Meds: UNKNOWN Past History Travel History Traveled to [place] past 21 day No Medical History Neurological: Parkinson's disease EENT: glaucoma Cardiovascular: hypertension, hyperlipidemia Respiratory: TRACHEOTOMY Gastrointestinal: CONSTIPATION Hepatic: NONE Renal: NONE Musculoskeletal: chronic back pain, fracture, FOOT,SUE ARM COMPRESSION FX Psychiatric: anxiety Endocrine: NONE Blood Disorders: NONE Cancer(s): NONE KETTLE SKIMMER/Reproductive: NONE Surgical History Surgical History: N TRACHEOTOMY (trach due to sepsis) Past Family/Social History Family History Relations & Conditions if any Relation not specified for: *No pertinent family history Psychosocial History Where do you live? Home Who Do You Live With? self Services at Home: None Primary Language: Taiwanese Smoking Status: Never Smoked ETOH Use: occasional use Illicit Drug Use: denies illicit drug use Functional Ability ADLs Independent: dressing, eating, toileting, bathing. Ambulation: independent IADLs Independent: shopping, housework, finances, food prep, telephone, transportation , medication admin. Review of Systems Review of Systems Constitutional: Denies: chills, fever. Cardiovascular: Denies: chest pain, palpitations. Respiratory: Denies: cough, short of breath, sputum production. GI: Denies: abdominal pain, constipation, diarrhea, nausea, vomiting. Genitourinary: Denies: dysuria, frequency. Musculoskeletal: Reports: see HPI, joint pain. Exam & Diagnostic Data Last 24 Hrs of Vital Signs/I&O Vital Signs Date Time Temp Pulse Resp B/P Pulse O2 O2 Flow FiO2 Ox Delivery Rate 03/04 1821 99.5 101 20 110/62 03/04 1818 99.5 101 20 110/62 96 Room Air 03/04 1754 99.4 97 20 97/55 97 Room Air 03/04 1616 97.9 100 18 114/56 99 03/04 1411 98.4 102 18 97/64 97 03/04 1225 98 03/04 1225 98.2 106 22 114/60 98 Intake & Output 03/04 1600 03/04 0800 03/04 0000 Intake Total Output Total 400 Balance -400 Output, Urine 400 Patient 71.668 kg Weight Physical Exam General Appearance Alert, Oriented X3, Cooperative, No Acute Distress Cardiovascular Regular Rate, Normal S1, Normal S2 Lungs Clear to Auscultation, Normal Air Movement Abdomen Normal Bowel Sounds, Soft, No Tenderness Extremities No Clubbing, No Cyanosis, Bruise on right knee Last 24 Hrs of Labs/Lan: Laboratory Tests 03/04/16 1805: Urine Color YEL, Urine Clarity CLEAR, Urine pH 6.0, Ur Specific Zanoni >= 1.030 , Urine Protein NEG, Urine Ketones 15 H, Urine Nitrite NEG, Urine Bilirubin NEG , Urine Urobilinogen 0.2, Ur Leukocyte Esterase NEG, Ur Microscopic SEDIMENT EXAMINED, Urine RBC 1-3, Ur Epithelial Cells RARE, Hyaline Casts 10-15 H, Urine Hemoglobin TRACE-INTACT, Urine Glucose NEG 03/04/16 1642: Lactic Acid 1.6 03/04/16 1352: Anion Gap 19 H, Estimated GFR 40 L, BUN/Creatinine Ratio 26.2 H, Glucose 131 H, Lactic Acid 2.5 H, Calcium 9.9, Total Bilirubin 2.2 H, AST 88 H, ALT 50, Alkaline Phosphatase 94, Creatine Kinase 3981 H, Total Protein 7.0, Albumin 4.4 , Globulin 2.6, Albumin/Globulin Ratio 1.7, PT 12.7 H, INR 1.21 H, CBC w Diff MAN DIFF ORDERED, RBC 4.35, MCV 86.7, MCH 29.4, RDW 13.9, MPV 8.0, Gran % 84.7 H, Lymphocytes % 5.3 L, Monocytes % 10.0 H, Eosinophils % 0, Basophils % 0 L, Absolute Granulocytes 16.6 H, Segmented Neutrophils 78 H, Band Neutrophils 8 H, Absolute Lymphocytes 1.0 L, Lymphocytes 7 L, Monocytes 7, Absolute Monocytes 2.0 H, Absolute Eosinophils 0, Absolute Basophils 0, Platelet Estimate VERIFIED BY SMEAR, Normocytic RBCs VERIFIED, Normochromic RBCs VERIFIED , PUBS MCHC 34.0 Microbiology 03/04 1802 BLOOD: Blood Culture - RECD 03/04 1642 BLOOD: Blood Culture - RECD 03/04 1315 URINE ROUT: Urine Culture - RECD Assessment/Plan Assessment: This is 70-year-old female with past medical history of hypertension, hyperlipidemia, Parkinson's disease, chronic back pain, anxiety presents to emergency room evaluation after a fall. Vitals upon presentation temperature 98.2, pulse 106, respiratory rate 22, blood pressure 114/60, pulse ox 98 WBC 19.6, renin 1.3, BUN 40, CPK 3981 CT scan of pelvis showed evidence of Acute comminuted left intertrochanteric hip fracture. We'll admit the patient to general floor and monitor for the following conditions. Hip fracture status post fall: CT scan of pelvis showed evidence of Acute comminuted left intertrochanteric hip fracture. Ortho has already seen patient in ER, has suggested ORIF left intertrochanteric hip fracture when medically stable. Patient has been on the floor for quite a while, CPK elevated , will hydrate the patient aggressively with normal saline at 100 mL per hour, will monitor kidney function and vitals closely. History of anxiety: To continue home dose of Abilify and Lexapro. History of hypertension: Continue home dose of blood with 5 mg, along with close monitoring of blood pressure. DVT prophylaxis Patient is DNR/DNI. As Ranked By This Provider Problem List: 1. Intertrochanteric fracture of left hip 2. Rhabdomyolysis Core Measures/Miscellaneous Acute Coronary Syndrome ACS Diagnosis: No Cerebrovascular Accident CVA/TIA Diagnosis: No Congestive Heart Failure CHF Diagnosis: No Venous Thromboembolism VTE Risk Factors: Acute medical illness, Age > 40 VTE Prophylaxis Ordered Inpt: Pharm- Heparin No Mech VTE prophylaxis d/t: No contraindications No VTE Pharm Prophylaxis d/t: No contraindications VTE Diagnosis: No VTE Type: NONE VTE Confirmed by (Test): NONE Severe Sepsis Severe Sepsis Present: No Septic Shock Septic Shock Present: No Miscellaneous Documentation Attending Case Discussed With: DAYAN MERAZ,LUIS Mckeon Primary Care Physician: FAWAD READ MD Patient sees these Specialists . Level of Patient Care: General Medicine GRACIELA MERAZ,JUSTINO 03/04/16 1713: Attending MD Review Statement Attending Statement Attending MD Statement: examined this patient, discuss w/resident/PA/STERILE PROCESS TECH, agreed w/resident/PA/STERILE PROCESS TECH, reviewed EMR data (avail), discussed with nursing, reviewed images, amended to note Attending Assessment/Plan: 70-year-old female with past medical history significant for hypertension, hyperlipidemia, anxiety, chronic pain who presented after a fall. Patient lives at home by herself. She claims that her legs gave out yesterday because she was feeling overall generalized weakness. This happened last evening. She stayed on the floor all night up until known today. She takes help from her neighbor who drives her around. Then patient did not respond to the neighbors calls, neighbor showed up at her house and found her down on the floor. In the emergency room patient was found to be in rhabdomyolysis. She has increase in her creatinine as well as very high CK. She was also found to have acute comminuted left intertrochanteric hip fracture. She also had leukocytosis as well as high lactate levels on admission but the lactate level did come down after IV hydration. Currently patient is complaining of pain in her left lower extremity. She denies any dizziness, any lightheadedness, any chest pain or palpitations. She denies any visual problems. She denies any urinary complaints. She does complain of constipation. Vital Signs Date Time Temp Pulse Resp B/P Pulse O2 O2 Flow FiO2 Ox Delivery Rate 03/04 1616 97.9 100 18 114/56 99 03/04 1411 98.4 102 18 97/64 97 03/04 1225 98 03/04 1225 98.2 106 22 114/60 98 on exam; aox3, nad. heent: dry mucous membranes. cv; s1,s2, rrr. resp; clear abd; soft, nt, bs+ ext; no edema. skin; + bruising on right knee ms: lle outward rotated. Laboratory Tests 03/04 03/04 1642 1352 Chemistry Sodium (137 - 145 mmol/L) 140 Potassium (3.5 - 5.1 mmol/L) 4.7 Chloride (98 - 107 mmol/L) 100 Carbon Dioxide (22 - 30 mmol/L) 21 L Anion Gap (5 - 16) 19 H BUN (7 - 17 mg/dL) 34 H Creatinine (0.5 - 1.0 mg/dL) 1.3 H Estimated GFR (>60 ml/min) 40 L BUN/Creatinine Ratio (7 - 25 %) 26.2 H Glucose (65 - 99 mg/dL) 131 H Lactic Acid (0.7 - 2.1 mmol/L) 1.6 2.5 H Calcium (8.4 - 10.2 mg/dL) 9.9 Total Bilirubin (0.2 - 1.3 mg/dL) 2.2 H AST (14 - 36 U/L) 88 H ALT (9 - 52 U/L) 50 Alkaline Phosphatase (<127 U/L) 94 Creatine Kinase (30 - 135 U/L) 3981 H Total Protein (6.3 - 8.2 g/dL) 7.0 Albumin (3.5 - 5.0 g/dL) 4.4 Globulin (1.9 - 4.2 gm/dL) 2.6 Albumin/Globulin Ratio (1.1 - 2.2 %) 1.7 Coagulation PT (9.4 - 12.5 SEC) 12.7 H INR (0.90 - 1.19) 1.21 H Hematology CBC w Diff MAN DIFF ORDERED WBC (4.8 - 10.8 /CUMM) 19.6 H RBC (4.20 - 5.40 /CUMM) 4.35 Hgb (12.0 - 16.0 G/DL) 12.8 Hct (37 - 47 %) 37.7 MCV (81.0 - 99.0 FL) 86.7 MCH (27.0 - 31.0 PG) 29.4 RDW (11.5 - 14.5 %) 13.9 Plt Count (130 - 400 /CUMM) 250 MPV (7.4 - 10.4 FL) 8.0 Gran % (42.2 - 75.2 %) 84.7 H Lymphocytes % (20.5 - 51.1 %) 5.3 L Monocytes % (1.7 - 9.3 %) 10.0 H Eosinophils % (0 - 5 %) 0 Basophils % (0.0 - 2.0 %) 0 L Absolute Granulocytes (1.4 - 6.5 /CUMM) 16.6 H Segmented Neutrophils (42.2 - 75.2 %) 78 H Band Neutrophils (0.0 - 5.0 %) 8 H Absolute Lymphocytes (1.2 - 3.4 /CUMM) 1.0 L Lymphocytes (20.5 - 51.1 %) 7 L Monocytes (1.7 - 9.3 %) 7 Absolute Monocytes (0.10 - 0.60 /CUMM) 2.0 H Absolute Eosinophils (0.0 - 0.7 /CUMM) 0 Absolute Basophils (0.0 - 0.2 /CUMM) 0 Platelet Estimate (ADEQUATE) VERIFIED BY SMEAR Normocytic RBCs VERIFIED Normochromic RBCs VERIFIED PUBS MCHC (33.0 - 37.0 G/DL) 34.0 EKG>>> NSR. No acute ST T changes. CT head/chest/abd/pelvis/cervical spine shows. IMPRESSION: 1. No acute intracranial pathology. 2. No acute cervical spine fracture or malalignment. 3. Age-related involutional changes in the brain, similar to prior exam. 4. Moderate degenerative disc disease in the lower cervical spine and multilevel facet arthropathy, most prominent along the right C4-C5 facet joint. A/P; 70-year-old female with past medical history significant for hypertension, hyperlipidemia, anxiety, chronic pain admitted with a fall. Patient found to have acute renal failure, dehydration, rhabdomyolysis, acute community left intertrochanteric fracture. She also has leukocytosis as well as high lactate levels but the lactate levels did come down after IV hydration. Patient will be admitted to medicine. She will be hydrated with IV fluids. We will recheck her CK as well as her creatinine. Her lactate level has already trended down. Patient will need adequate pain management with analgesics. She will need to be on pain pathway. Please confirm home medications. Hold any ARBS, Sergey or diuretics. Hold any nephrotoxic medications including NSAIDS for pain control. She will be seen by orthopedic and it will be decided if she will require surgery. Timing of surgery will be decided by orthopedic. Her RCRI risk stratification puts her at class I risk with 0.4% risk of major cardiac event. Would prefer getting an echocardiogram prior to surgery but if surgery is deemed emergent then may proceed with surgery. Please keep her nothing by mouth for now unless seen by orthopedic. DVT prophylaxis: Hep sq. DNR/IMELISA DELUNA MD 03/04/162027: General Information and HPI Allergies/Medications Home Med list Alendronate Sodium 70 MG TAB 1 TAB PO QW OSTEOPOROSIS (Reported) in the morning, at least 30 minutes before the first food, beverage, or medication of the day Amlodipine (Norvasc 5MG Tab) 5 MG TAB 1 TAB PO DAILY HTN (Reported) Aripiprazole (Abilify) 10 MG TAB 1 TAB PO DAILY ANXIETY (Reported) Carbidopa/Levodopa (Carbidopa-Levo ER 50-200 Tab) 50 MG-200 MG TABLET.ER 2 TAB PO BID PARKINSONS (Reported) Clonazepam 0.5 MG TABLET 1 TAB PO BIDP PRN ANXIETY (Reported) Escitalopram Oxalate (Lexapro 10MG) 10 MG TAB 1 TAB PO DAILY ANXIETY ( Reported) Fluticasone Propionate (Flonase) 120 SPRAY/BOT SPR 2 SPRAY NASB DAILY HAY FEVER (Reported) Lactulose 10 GRAM/15 ML SOLUTION 15 ML PO BID CONSTIPATION (Reported) Lubiprostone (Amitiza) 24 MCG CAPSULE 1 CAP PO BID GI (Reported) Multivitamin (Multiple Vitamins) 1 TAB TAB 1 TAB PO D VITAMIN SUPP (Reported) Propranolol HCl 20 MG TABLET 1 TAB PO DAILY ANXIETY (Reported) Simvastatin (Zocor) 20 MG TAB 1 TAB PO QPM CHOLESTEROL (Reported) Thiamine (Vitamin B1) 100 MG TAB 1 TAB PO DAILY VITAMIN SUPP (Reported) Travoprost (Travatan Z Oph Beckie 0.004% 2.5ML) 50 GTT/1 BOT GTT 1 GTT OPH QPM GLAUCOMA (Reported) Valsartan (Diovan) 160 MG TAB 1 TAB PO DAILY HTN (Reported) Resident Review Statement Resident Statement: examined this patient, discussed with internal affairs investigator, agreed with internal affairs investigator Other Findings: 70-year-old female with a past medical history hypertension, glaucoma, dyslipidemia, alcohol abuse, history of septic shock in 2005, possible park[facility] '[facility] Dr[facility] Jacques. She comes in status post a fall resulting in acute comminuted left intertrochanteric hip fracture. She was found on the floor this morning by her neighbors after laying bed the entire night following the fall. She denies loss of consciousness but does not remember if she sustained injuries to her head. In the ER she was found to have elevated creatinine and CK. On examination-Skin tear on left scalp and bruise over Rt knee EKG-sinus tachycardia, no significant ST changes Assessment 1. Acute comminuted left intertrochanteric hip fracture. 2. Acute kidney injury secondary to rhabdomyolysis/dehydration Plan Admit to general med Patient will need optimization prior to surgery Start IV hydration with normal saline at 100 mL/h Repeat CK and BEP at 8 PM and 6 AM-watch for creatinine and potassium levels Check a swallow evaluation-had a brief choking episode while drinking water at bedside PT/OT Ointment dressing to her head performed Nothing by mouth at midnight for possible hip repair in the morning Obtain Ortho consult Obtain Neuro consult-Dr. Jacques Check an echocardiogram Avoid ARBs/ACEI, NSAIDS, Tylenol or other nephrotoxic agents Adequate pain control Stool softeners Heart healthy diet Subcutaneous heparin for DVT prophylaxis
--- NOTE | 2016-03-04 17:39 | NUR ---
PT ADMITTED TO ROOM 219-1
--- NOTE | 2016-03-04 17:54 | NUR ---
ORTHO AT BEDSIDE TO CONSENT PT FOR SURGERY.
--- NOTE | 2016-03-04 18:21 | NUR ---
DINNER TRAY ORDERED, WATER AT BEDSIDE, PT AWARE OF NEW ORDER REGULAR DIET UNTIL NPO AT MIDNIGHT.
--- NOTE | 2016-03-04 18:44 | NUR ---
REPORT GIVEN TO [facility], TRANSPORT BOOKED.
[2016-03-04] MEDS ORDERED: CARBIDOPA-LEVO1 EAC9 PO (20:02)
[2016-03-04 20:50] VITALS: BP 82/50
[2016-03-04 21:48] VITALS: BP 78/50
[2016-03-04 22:15] VITALS: BP 78/46
--- NOTE | 2016-03-04 23:03 | RADIOLOGY REPORT ---
EXAMINATION: XR HIP, LEFT WITH PELVIS CLINICAL INFORMATION: Hip fracture preoperative. COMPARISON: CT 03/04/2016 TECHNIQUE: Frontal view of the pelvis with 2 additional views of the left hip FINDINGS: The comminuted intertrochanteric left femur fracture is again noted with proximal migration of the distal fragment. Multiple small fracture fragments are seen, including fragments displaced laterally. The femoral head is well seated within its acetabulum. The pelvic ring is intact. The sacroiliac joints and pubic symphysis are intact. The right femoral head is appropriately positioned within its acetabulum. IMPRESSION: Comminuted intertrochanteric left femur fracture with proximal displacement of the major fracture fragment.
[2016-03-04 23:40] VITALS: BP 120/60
--- NOTE | 2016-03-05 00:11 | NUR ---
PT ARRIVED ON THE FLOOR AT 1999 R/T LEFT HIP FRACTURE S/P AT HOME. ALERT/ORIENTED X4. LS CTA. ABD SOFT NONTENDER. ACCORDING TO PT NO BM FOR MORE THAN A WEEK. ALMENDAREZ CATH IN PLACE INSERTED IN ED TODAY. CLOUDY DARK YELLOW URINE OUTPUT. LLE EXTERNALLY ROTATED AND SHORTER. ABRASION WITH BRUISE TO RIGHT KNEE. SMALL LACERATION TO LEFT HEAD WITH DRY BLOOD. BP 82/50 UPON ARRIVAL ON THE FLOOR. CPMPLETED BOLUS NS INTIATED FROM ED. STARTED PT ON NS @150 PER MD ORDER. RECHECKED BP IN AN HOUR BP=78/50. CALLED BRUSH HOLDER ASSEMBLER VETO VALDES AND UPDATED. 500ML NS BOLUS ADMINISTERED. BP RECHECKED AFTER BOLUS COMPLETED AND BP=78/46. BRUSH HOLDER ASSEMBLER VETO AGAIN UPDATED. PER MD TO CONTINUE THE NS AT 150ML/HR AND CONTINUE TO MONITOR BP. ADMISSION ORDERS COMPLETED. FALL PRECAUTIONS MAINTAINED. WILL CONTINUE TO MONITOR ACCORDING TO POC.
[2016-03-05 08:31] LABS: ABSOLUTE BASOPHIL COUNT 0 /CUMM (0.0-0.2); ABSOLUTE EOSINOPHIL COUNT 0 /CUMM (0.0-0.7); ABSOLUTE LYMPH COUNT 1.3 /CUMM (1.2-3.4); EOSINOPHIL % 0 % (0-5); WHITE BLOOD CELL COUNT 10.6 /CUMM (4.8-10.8)
[2016-03-05 08:35] VITALS: BP 122/60
[2016-03-05 08:43] LABS: ABSOLUTE GRANULOCYTE CT 8.2 /CUMM (1.4-6.5); ABSOLUTE MONOCYTE COUNT 1.1 /CUMM (0.10-0.60); BASOPHIL % 0.1 % (0.0-2.0); GRANULOCYTE % 76.9 % (42.2-75.2); MEAN CORPUSCULAR HGB 29.6 PG (27.0-31.0); MEAN CORPUSCULAR HGB CONC 34.2 G/DL (33.0-37.0); MEAN CORPUSCULAR VOLUME 86.5 FL (81.0-99.0); PLATELET COUNT 165 /CUMM (130-400); RBC DISTRIBUTION WIDTH 14.4 % (11.5-14.5)
[2016-03-05 08:47] LABS: HEMATOCRIT 26.5 % (37-47); RED BLOOD CELL CT 3.06 /CUMM (4.20-5.40)
--- NOTE | 2016-03-05 08:49 | PN- Housestaff ---
NOHEMI MERAZ,[facility] 03/05/16 0849: Subjective Follow-up For: Hip fracture status post fall Subjective: Patient seen and examined this morning. She was lying in bed in mild distress complaining of pain in her right hip and leg, she is scheduled for hip surgery today, remains afebrile, hypotensive overnight. Review of Systems Constitutional: Reports: see HPI. Denies: chills, fever. Cardiovascular: Denies: chest pain, palpitations. Respiratory: Denies: cough, short of breath, sputum production. Gastrointestinal: Denies: abdominal pain, constipation, diarrhea, nausea, vomiting. Genitourinary: Denies: discharge, dysuria. Objective Last 24 Hrs of Vital Signs/I&O Vital Signs Date Time Temp Pulse Resp B/P Pulse O2 O2 Flow FiO2 Ox Delivery Rate 03/05 1618 98.3 89 19 112/54 97 Room Air 03/05 0956 78 03/05 0956 78 03/05 0909 Room Air 03/05 0907 Room Air 03/05 0851 Room Air 03/05 0835 98.8 82 20 122/60 94 Room Air 03/04 2340 98.7 78 20 120/60 94 Room Air 03/04 2215 78 78/46 03/04 2148 78/50 03/04 2050 99.8 79 20 82/50 95 Room Air 03/04 1821 99.5 101 20 110/62 03/04 1818 99.5 101 20 110/62 96 Room Air 03/04 1754 99.4 97 20 97/55 97 Room Air Intake & Output 03/05 1600 03/05 0800 03/05 0000 Intake Total 1200 Output Total 380 450 350 Balance -380 750 -350 Intake, IV 1200 Number 1 Bowel Movements Output, Urine 380 450 350 Patient 74.843 kg Weight Physical Exam General Appearance: Alert, Oriented X3, Cooperative Cardiovascular: Regular Rate, Normal S1, Normal S2 Lungs: Clear to Auscultation, Normal Air Movement Abdomen: Normal Bowel Sounds, Soft, No Tenderness Extremities: right hip tenderness/leg tenderness Current Medications: Current Medications Sig/Erinn Start time Last Medication Dose Route Stop Time Status Admin Acetaminophen 650 MG Q6P PRN 03/04 1830 AC PO Amlodipine Besylate 5 MG DAILY 03/05 1000 AC PO Aripiprazole 10 MG DAILY 03/05 1000 AC PO Docusate Sodium 100 MG BID 03/04 2200 AC 03/05 PO 0952 Escitalopram Oxalate 10 MG DAILY 03/05 1000 AC 03/05 PO 0952 Heparin Sodium 5,000 UNIT Q8 03/04 2199 AC 03/05 (Porcine) SC 0449 Hydromorphone HCl 0.5 MG Q4P PRN 03/04 1830 AC 03/05 IV 0556 Latanoprost 1 GTT AT BEDTIME 03/04 220 AC 03/04 OPH 2220 Non-Formulary 0 SEE ADMIN CRITERIA 03/04 1845 CAN Medication ANY Oxycodone HCl 5 MG Q6 PRN 03/04 1830 AC 03/05 PO 0953 Oxycodone/ 1 TAB Q6P PRN 03/04 1830 CAN Acetaminophen PO Patient Medication 1 ED .STK-MED ONE 03/05 1349 DC Teaching ED 03/05 1350 Polyethylene Glycol 17 GM AT BEDTIME 03/04 2199 AC PO Propranolol HCl 20 MG DAILY 03/05 1000 AC PO Senna/Docusate Sodium 2 TAB AT BEDTIME 03/04 220 AC PO Sodium Chloride 1,000 ML Q10H 03/05 1215 DC IV Sodium Chloride 500 ML BOLUS ONE 03/04 2230 DC 03/04 IV 03/04 2329 2233 Sodium Chloride 1,000 ML Q10H 03/04 1815 AC 03/05 IV 1200 Sodium Chloride 1,000 ML ONCE ONE 03/04 1600 DC 03/04 IV 03/04 2239 1652 Assessment/Plan Assessment: This is 70-year-old female with past medical history of hypertension, hyperlipidemia, Parkinson's disease, chronic back pain, anxiety presents to emergency room evaluation after a fall. Vitals upon presentation temperature 98.2, pulse 106, respiratory rate 22, blood pressure 114/60, pulse ox 98 WBC 19.6, creatnine 1.3, BUN 40, CPK 3981 CT scan of pelvis showed evidence of Acute comminuted left intertrochanteric hip fracture. We'll admit the patient to general floor and monitor for the following conditions. Hip fracture status post fall: CT scan of pelvis showed evidence of Acute comminuted left intertrochanteric hip fracture. Ortho on board, patient scheduled for ORIF left intertrochanteric hip fracture when medically stable. Blood pressure overnight dropped to systolic in 80s, she received normal saline bolus,. H&H dropped to 9.1 and 26, she is to be transfused 1 pack of packed red blood cells, will monitor repeat labs, monitor blood pressure Patient has been on the floor for quite a while, CPK elevated , will hydrate the patient aggressively with normal saline at 150 mL per hour, kidney function improving. History of anxiety: To continue home dose of Abilify and Lexapro. History of hypertension: Continue home dose of blood with 5 mg, along with close monitoring of blood pressure. DVT prophylaxis Patient is DNR/DNI. Problem List: 1. Rhabdomyolysis 2. Intertrochanteric fracture of left hip Pain Ratin Pain Location: Hip Pain Goal: Remain pain free Pain Plan: Percocet for severe Oxycodone for moderate Tylenol for mild Tomorrow's Labs & Rationales: CBC for H&H monitoring posterior fusion BEP for lytes monitoring LUIS HANLEY 03/24/16 1124: Attending MD Review Statement Attending Statement Attending MD Statement: examined this patient, discuss w/resident/PA/JOURNAL BOX INSPECTOR, agreed w/resident/PA/JOURNAL BOX INSPECTOR, reviewed EMR data (avail), discussed with nursing Attending Assessment/Plan: Pt with hypotension despite fluids, Hb drop to 9.1 this am from 12.8, will give 1 U PRBC prior to surgery. Will hold 1 U PRBC in case she needs perioperatively. Reviewed imaging and EKG. pt does not have any h/o cardiac disease, no stents . Pt is ok to go to surgery without any furhter cardiac workup after she gets her 1 U PRBC and if her BP improves. will d/w Orthopedics. Pt has not used any topical or po steroids in the last few months. D/w pt the care plan. Cont iv fluids. CK trending down .
--- NOTE | 2016-03-05 12:02 | NUR ---
PHYSICAL THERAPY- CONSULT RECEIVED, CHART REVIEWED. PT S/P FALL W/ HIP FX. AWAITING MEDICAL CLEARANCE FOR SURGICAL REPAIR. WILL DEFER EVAL AT THIS TIME. PLEASE RECONSULT P.T. POST-OP W/ APPROPRIATE WEIGHT BEARING STATUS. THANK YOU.
--- NOTE | 2016-03-05 12:11 | PN- Att Addend ---
Attending Addendum Attending Brief Note Pt with hypotension despite fluids, Hb drop to 9.1 this am from 12.8, will give 1 U PRBC prior to surgery. Will hold 1 U PRBC in case she needs perioperatively. Reviewed imaging and EKG. pt does not have any h/o cardiac disease, no stents . Pt is ok to go to surgery without any furhter cardiac workup after she gets her 1 U PRBC and if her BP improves. will d/w Orthopedics. Pt has not used any topical or po steroids in the last few months. D/w pt the care plan. Cont iv fluids. CK trending down .
[2016-03-05 14:15] VITALS: BP 90/62
[2016-03-05 14:30] VITALS: BP 108/54
--- NOTE | 2016-03-05 14:48 | NUR ---
SPEECH THERAPY: ORDER RECEIVED, CHART REVIEWED. ST UNABLE TO SEE PT FOR INTITIAL SWALLOW EVALUATION A RESULT OF BEING NPO FOR HIP REPAIR PROCEDURE. D/W RN & MD. MD TO PLACE NEW SWALLOW EVAL ORDER CLINICALLY INDICATED.
[2016-03-05 16:18] VITALS: BP 112/54
--- NOTE | 2016-03-05 17:15 | NUR ---
1415 BLOOD PRODUCT STARTED ORDERED PRE SURGERY, VSS CHARTED 1430 NO S/S OF REACTION, VSS CHARTED. 1700 PATIENT OFF FLOOR TO THE O.R, TRANSFUSION RUNNING, A+O X3, VSS, NO S/O DISTESS, ACCOMPANIED BY NURSING REGIONAL ACCOUNT EXECUTIVE.
[2016-03-05 22:35] VITALS: BP 108/64
--- NOTE | 2016-03-05 23:11 | RADIOLOGY REPORT ---
EXAMINATION: XR HIP, LEFT CLINICAL INFORMATION: Left hip fracture repair COMPARISON: 03/04/2016 TECHNIQUE: Intraoperative fluoroscopic imaging was performed. 114 total images were submitted. 2 views of the left hip. Total fluoroscopic time 157.9 seconds. FINDINGS: Initial images demonstrate the comminuted intertrochanteric left femur fracture. There is manipulation of the distal fragment followed by manipulation of the fracture fragments. There is then placement of an intramedullary nail. A proximal femoral neck screw is placed and a distal interlocking screw is placed. IMPRESSION: Fluoroscopic guidance for internal fixation of the proximal left femoral fracture.
[2016-03-06 00:09] VITALS: BP 104/52
[2016-03-06 04:03] VITALS: BP 112/62
[2016-03-06 08:17] LABS: ABSOLUTE BASOPHIL COUNT 0 /CUMM (0.0-0.2); ABSOLUTE EOSINOPHIL COUNT 0 /CUMM (0.0-0.7); ABSOLUTE GRANULOCYTE CT 6.4 /CUMM (1.4-6.5); ABSOLUTE LYMPH COUNT 0.9 /CUMM (1.2-3.4); ABSOLUTE MONOCYTE COUNT 0.7 /CUMM (0.10-0.60); BASOPHIL % 0.2 % (0.0-2.0); EOSINOPHIL % 0.1 % (0-5); GRANULOCYTE % 79.4 % (42.2-75.2); HEMATOCRIT 26.1 % (37-47); MEAN CORPUSCULAR HGB CONC 33.7 G/DL (33.0-37.0); MEAN CORPUSCULAR VOLUME 86.3 FL (81.0-99.0); MEAN PLATELET VOLUME 8.1 FL (7.4-10.4); PLATELET COUNT 149 /CUMM (130-400); RED BLOOD CELL CT 3.02 /CUMM (4.20-5.40)
[2016-03-06 08:27] VITALS: BP 98/56
--- NOTE | 2016-03-06 08:50 | PN- Housestaff ---
Subjective Follow-up For: Hip fracture status post fall Subjective: Patient seen and examined this morning. Patient is resting comfortably in bed. Her BP has been a little low so antihypertensives were held last night and this morning. She endorses mild pain in the upper abdomen. She feels that it is probably due to constipation. She agrees to trying Gas X and increasing bowel regimen. No events reported overnight. Review of Systems Constitutional: Reports: see HPI. Objective Last 24 Hrs of Vital Signs/I&O Vital Signs Date Time Temp Pulse Resp B/P Pulse O2 O2 Flow FiO2 Ox Delivery Rate 03/06 0827 99.2 98 20 98/56 93 Nasal 3.0L Cannula 03/06 0403 98.3 95 20 112/62 100 03/06 0009 97.5 83 20 104/52 100 03/06 0000 Nasal 3.0L Cannula 03/05 2235 97.8 88 18 108/64 100 Nasal 3.0L Cannula 03/05 1618 98.3 89 19 112/54 97 Room Air 03/05 1430 99.9 82 18 108/54 95 Nasal 2.0L Cannula 03/05 1415 99.9 80 18 90/62 95 Nasal 2.0L Cannula 03/05 0956 78 92/62 03/05 0956 78 92/62 03/05 0909 Room Air 03/05 0907 Room Air 03/05 0851 Room Air Intake & Output 03/06 1600 03/06 0800 03/06 0000 Intake Total 1200 Output Total 350 Balance 850 Intake, IV 1200 Output, Urine 350 Patient 74.843 kg Weight Physical Exam General Appearance: Alert, Oriented X3, Cooperative, No Acute Distress Other Physical Findings: Cardiovascular: Regular Rate, Normal S1, Normal S2 Lungs: Clear to Auscultation, Normal Air Movement Abdomen: Normal Bowel Sounds, Soft, No Tenderness Extremities: right hip tenderness/leg tenderness Current Medications: Current Medications Sig/Erinn Start time Last Medication Dose Route Stop Time Status Admin Acetaminophen 1,000 MG .STK-MED ONE 03/05 1730 DC IV 03/05 1731 Acetaminophen 650 MG Q6P PRN 03/04 1830 AC PO Amlodipine Besylate 5 MG DAILY 03/05 1000 AC PO Aripiprazole 10 MG DAILY 03/05 1000 AC PO Docusate Sodium 100 MG BID 03/04 2200 AC 03/05 PO 0952 Escitalopram Oxalate 10 MG DAILY 03/05 1000 AC 03/05 PO 0952 Fentanyl Citrate 250 MCG .STK-MED ONE 03/05 1730 DC IM 03/05 1731 Heparin Sodium 5,000 UNIT Q8 03/04 2200 AC 03/06 (Porcine) SC 0433 Hydromorphone HCl 2 MG .STK-MED ONE 03/05 1731 DC IM 03/05 1732 Hydromorphone HCl 0.5 MG Q4P PRN 03/04 1830 AC 03/06 IV 0832 Latanoprost 1 GTT AT BEDTIME 03/04 2200 AC 03/05 OPH 2222 Midazolam HCl 2 MG .STK-MED ONE 03/05 1730 DC IM 03/05 1731 Ondansetron HCl 8 MG .STK-MED ONE 03/05 1731 DC IM 03/05 1732 Oxycodone HCl 5 MG Q6 PRN 03/04 1830 AC 03/06 PO 0433 Patient Medication 1 ED .STK-MED ONE 03/05 1349 DC Teaching ED 03/05 1350 Polyethylene Glycol 17 GM AT BEDTIME 03/04 2200 AC PO Propranolol HCl 20 MG DAILY 03/05 1000 AC PO Senna/Docusate Sodium 2 TAB AT BEDTIME 03/04 2200 AC PO Sodium Chloride 1,000 ML Q10H 03/05 1215 DC IV Sodium Chloride 1,000 ML Q10H 03/04 1815 AC 03/06 IV 0424 Last 24 Hrs of Lab/Lan Results Last 24 Hrs of Labs/Mics: Laboratory Tests 03/06/16 0655: Sodium Pending, Potassium Pending, Chloride Pending, Carbon Dioxide Pending, Anion Gap Pending, BUN Pending, Creatinine Pending, BUN/Creatinine Ratio Pending , Total Bilirubin Pending, Direct Bilirubin Pending, AST Pending, ALT Pending, Alkaline Phosphatase Pending, Creatine Kinase Pending, Total Protein Pending, Albumin Pending, CBC w Diff Pending, WBC Pending, RBC Pending, Hgb Pending, Hct Pending, MCV Pending, MCH Pending, RDW Pending, Plt Count Pending, MPV Pending, PUBS MCHC Pending Assessment/Plan Assessment: This is 70-year-old female with past medical history of hypertension, hyperlipidemia, Parkinson's disease, chronic back pain, anxiety presents to emergency room evaluation after a fall. Vitals upon presentation temperature 98.2, pulse 106, respiratory rate 22, blood pressure 114/60, pulse ox 98 WBC 19.6, creatnine 1.3, BUN 40, CPK 3981 CT scan of pelvis showed evidence of Acute comminuted left intertrochanteric hip fracture. Hip fracture status post fall: CT scan of pelvis showed evidence of Acute comminuted left intertrochanteric hip fracture. Ortho on board, patient scheduled for ORIF left intertrochanteric hip fracture when medically stable. Blood pressure overnight dropped to systolic in 80s, she received normal saline bolus,. H&H dropped to 9.1 and 26, she is to be transfused 1 pack of packed red blood cells, will monitor repeat labs, monitor blood pressure Patient has been on the floor for quite a while, CPK elevated , will hydrate the patient aggressively with normal saline at 150 mL per hour, kidney function improving. - D/C nguyen and IVF as per surg rec - Start Warfarin 5mg along with Heparin for DVT ppx - INR daily History of anxiety: To continue home dose of Abilify and Lexapro. History of hypertension: Continue home dose of blood with 5 mg, along with close monitoring of blood pressure. DVT prophylaxis Patient is DNR/DNI. Problem List: 1. Rhabdomyolysis 2. Intertrochanteric fracture of left hip Pain Ratin Pain Location: Hip Pain Goal: Pain 4 or less Pain Plan: Percocet for severe Oxycodone for moderate Tylenol for mild Tomorrow's Labs & Rationales: CBC for H&H monitoring posterior fusion BEP for lytes monitoring
--- NOTE | 2016-03-06 09:26 | PN- Orthopedic ---
See Addendum Subjective Subjective: PDO #1 s/p IMHS left hip. Resting comfortably in bed. Denies pain to hip. Had some abdominal pain last night, but has now resolved. Yet to have BM. Denies CP/SOB, N/V, F/C. Yet to ambulate. Voiding via nguyen catheter. IVF infusing. Objective Vital Signs and I&Os Vital Signs Date Time Temp Pulse Resp B/P Pulse O2 O2 Flow FiO2 Ox Delivery Rate 03/06 0912 98 98/56 03/06 0827 99.2 98 20 98/56 93 Nasal 3.0L Cannula 03/06 0403 98.3 95 20 112/62 100 03/06 0009 97.5 83 20 104/52 100 03/06 0000 Nasal 3.0L Cannula 03/05 2235 97.8 88 18 108/64 100 Nasal 3.0L Cannula 03/05 1618 98.3 89 19 112/54 97 Room Air 03/05 1430 99.9 82 18 108/54 95 Nasal 2.0L Cannula 03/05 1415 99.9 80 18 90/62 95 Nasal 2.0L Cannula 03/05 0956 78 92/62 03/05 0956 78 92/62 Intake & Output 03/06 1600 03/06 0800 03/06 0000 03/05 1600 03/05 0800 03/05 0000 Intake Total 1200 1200 Output Total 350 380 450 350 Balance 850 -380 750 -350 Intake, IV 1200 1200 Number 1 Bowel Movements Output, Urine 350 380 450 350 Patient 165 lb 165 lb Weight Physical Exam: Gen: AAOx3 in NAD Cor: S1+S2+ Lungs: CTA james Abd: soft, NT, ND, +BS x4 Ext: left hip dressing examined. Small amount of sanguinous drainage noted to proximal portion of incision, no active drainage noted. Minimal tenderness to palpation. Dorsiflexion and plantar flexion intact. Sensation grossly intact. Palpable DP pulse. No calf tenderness or edema noted to lower extremities. Current Medications: Current Medications Sig/Erinn Start time Last Medication Dose Route Stop Time Status Admin Acetaminophen 1,000 MG .STK-MED ONE 03/05 1730 DC IV 03/05 1731 Acetaminophen 650 MG Q6P PRN 03/04 1830 AC PO Amlodipine Besylate 5 MG DAILY 03/05 1000 AC PO Aripiprazole 10 MG DAILY 03/05 1000 AC 03/06 PO 0911 Docusate Sodium 100 MG BID 03/04 2200 AC 03/06 PO 0913 Escitalopram Oxalate 10 MG DAILY 03/05 1000 AC 03/06 PO 0913 Fentanyl Citrate 250 MCG .STK-MED ONE 03/05 1730 DC IM 03/05 1731 Heparin Sodium 5,000 UNIT Q8 03/04 2200 AC 03/06 (Porcine) SC 0433 Hydromorphone HCl 2 MG .STK-MED ONE 03/05 1731 DC IM 03/05 1732 Hydromorphone HCl 0.5 MG Q4P PRN 03/04 1830 AC 03/06 IV 0832 Latanoprost 1 GTT AT BEDTIME 03/04 220 AC 03/05 OPH 2222 Midazolam HCl 2 MG .STK-MED ONE 03/05 1730 DC IM 03/05 1731 Ondansetron HCl 8 MG .STK-MED ONE 03/05 1731 DC IM 03/05 1732 Oxycodone HCl 5 MG Q6 PRN 03/04 1830 AC 03/06 PO 0433 Patient Medication 1 ED .STK-MED ONE 03/05 1349 DC Teaching ED 03/05 1350 Polyethylene Glycol 17 GM AT BEDTIME 03/04 2199 AC PO Propranolol HCl 20 MG DAILY 03/05 1000 AC PO Senna/Docusate Sodium 2 TAB AT BEDTIME 03/04 2199 AC PO Sodium Chloride 1,000 ML Q10H 03/05 1215 DC IV Sodium Chloride 1,000 ML Q10H 03/04 1815 AC 03/06 IV 0424 Results Last 48 Hours of Labs: Laboratory Tests 03/06 03/05 0655 0720 Chemistry Sodium (137 - 145 mmol/L) 136 L 137 Potassium (3.5 - 5.1 mmol/L) 3.8 4.1 Chloride (98 - 107 mmol/L) 105 105 Carbon Dioxide (22 - 30 mmol/L) 23 21 L Anion Gap (5 - 16) 8 10 BUN (7 - 17 mg/dL) 12 25 H Creatinine (0.5 - 1.0 mg/dL) 0.6 0.9 Estimated GFR (>60 ml/min) > 60 > 60 BUN/Creatinine Ratio (7 - 25 %) 20.0 27.8 H Total Bilirubin (0.2 - 1.3 mg/dL) 0.8 0.6 Direct Bilirubin (< 0.4 mg/dL) 0.2 0.2 AST (14 - 36 U/L) 54 H 69 H ALT (9 - 52 U/L) 50 51 Alkaline Phosphatase (<127 U/L) 52 61 Creatine Kinase (30 - 135 U/L) 2145 H 3021 H Total Protein (6.3 - 8.2 g/dL) 4.2 L 5.0 L Albumin (3.5 - 5.0 g/dL) 2.1 L 2.7 L Hematology CBC w Diff NO MAN DIFF REQ NO MAN DIFF REQ WBC (4.8 - 10.8 /CUMM) 8.0 10.6 RBC (4.20 - 5.40 /CUMM) 3.02 L 3.06 L Hgb (12.0 - 16.0 G/DL) 8.8 L 9.1 L Hct (37 - 47 %) 26.1 L 26.5 L MCV (81.0 - 99.0 FL) 86.3 86.5 MCH (27.0 - 31.0 PG) 29.0 29.6 RDW (11.5 - 14.5 %) 15.0 H 14.4 Plt Count (130 - 400 /CUMM) 149 165 MPV (7.4 - 10.4 FL) 8.1 8.0 Gran % (42.2 - 75.2 %) 79.4 H 76.9 H Lymphocytes % (20.5 - 51.1 %) 11.4 L 12.3 L Monocytes % (1.7 - 9.3 %) 8.9 10.7 H Eosinophils % (0 - 5 %) 0.1 0 Basophils % (0.0 - 2.0 %) 0.2 0.1 Absolute Granulocytes (1.4 - 6.5 /CUMM) 6.4 8.2 H Absolute Lymphocytes (1.2 - 3.4 /CUMM) 0.9 L 1.3 Absolute Monocytes (0.10 - 0.60 /CUMM) 0.7 H 1.1 H Absolute Eosinophils (0.0 - 0.7 /CUMM) 0 0 Absolute Basophils (0.0 - 0.2 /CUMM) 0 0 PUBS MCHC (33.0 - 37.0 G/DL) 33.7 34.2 03/04 03/04 03/04 2048 1805 1642 Chemistry Sodium (137 - 145 mmol/L) 137 Potassium (3.5 - 5.1 mmol/L) 4.7 Chloride (98 - 107 mmol/L) 100 Carbon Dioxide (22 - 30 mmol/L) 21 L Anion Gap (5 - 16) 16 BUN (7 - 17 mg/dL) 32 H Creatinine (0.5 - 1.0 mg/dL) 1.1 H Estimated GFR (>60 ml/min) 49 L BUN/Creatinine Ratio (7 - 25 %) 29.1 H Lactic Acid (0.7 - 2.1 mmol/L) 1.6 Creatine Kinase (30 - 135 U/L) 3174 H Urines Urine Color (YEL,AMB,STR) YEL Urine Clarity (CLEAR) CLEAR Urine pH (5.0 - 8.0) 6.0 Ur Specific [place] (1.001 - 1.035) >= 1.030 Urine Protein (NEG,<30 MG/DL) NEG Urine Ketones (NEG) 15 H Urine Nitrite (NEG) NEG Urine Bilirubin (NEG) NEG Urine Urobilinogen (0.1 - 1.0 EU/dl) 0.2 Ur Leukocyte Esterase (NEG) NEG Ur Microscopic SEDIMENT EXAMINED Urine RBC (0 - 5 /HPF) 1-3 Ur Epithelial Cells (NONE,FEW) RARE Hyaline Casts (0/LPF) 10-15 H Urine Hemoglobin (NEG) TRACE-INTACT Urine Glucose (N MG/DL) NEG 03/04 1352 Chemistry Sodium (137 - 145 mmol/L) 140 Potassium (3.5 - 5.1 mmol/L) 4.7 Chloride (98 - 107 mmol/L) 100 Carbon Dioxide (22 - 30 mmol/L) 21 L Anion Gap (5 - 16) 19 H BUN (7 - 17 mg/dL) 34 H Creatinine (0.5 - 1.0 mg/dL) 1.3 H Estimated GFR (>60 ml/min) 40 L BUN/Creatinine Ratio (7 - 25 %) 26.2 H Glucose (65 - 99 mg/dL) 131 H Lactic Acid (0.7 - 2.1 mmol/L) 2.5 H Calcium (8.4 - 10.2 mg/dL) 9.9 Total Bilirubin (0.2 - 1.3 mg/dL) 2.2 H AST (14 - 36 U/L) 88 H ALT (9 - 52 U/L) 50 Alkaline Phosphatase (<127 U/L) 94 Creatine Kinase (30 - 135 U/L) 3981 H Total Protein (6.3 - 8.2 g/dL) 7.0 Albumin (3.5 - 5.0 g/dL) 4.4 Globulin (1.9 - 4.2 gm/dL) 2.6 Albumin/Globulin Ratio (1.1 - 2.2 %) 1.7 Coagulation PT (9.4 - 12.5 SEC) 12.7 H INR (0.90 - 1.19) 1.21 H Hematology CBC w Diff MAN DIFF ORDERED WBC (4.8 - 10.8 /CUMM) 19.6 H RBC (4.20 - 5.40 /CUMM) 4.35 Hgb (12.0 - 16.0 G/DL) 12.8 Hct (37 - 47 %) 37.7 MCV (81.0 - 99.0 FL) 86.7 MCH (27.0 - 31.0 PG) 29.4 RDW (11.5 - 14.5 %) 13.9 Plt Count (130 - 400 /CUMM) 250 MPV (7.4 - 10.4 FL) 8.0 Gran % (42.2 - 75.2 %) 84.7 H Lymphocytes % (20.5 - 51.1 %) 5.3 L Monocytes % (1.7 - 9.3 %) 10.0 H Eosinophils % (0 - 5 %) 0 Basophils % (0.0 - 2.0 %) 0 L Absolute Granulocytes (1.4 - 6.5 /CUMM) 16.6 H Segmented Neutrophils (42.2 - 75.2 %) 78 H Band Neutrophils (0.0 - 5.0 %) 8 H Absolute Lymphocytes (1.2 - 3.4 /CUMM) 1.0 L Lymphocytes (20.5 - 51.1 %) 7 L Monocytes (1.7 - 9.3 %) 7 Absolute Monocytes (0.10 - 0.60 /CUMM) 2.0 H Absolute Eosinophils (0.0 - 0.7 /CUMM) 0 Absolute Basophils (0.0 - 0.2 /CUMM) 0 Platelet Estimate (ADEQUATE) VERIFIED BY SMEAR Normocytic RBCs VERIFIED Normochromic RBCs VERIFIED PUBS MCHC (33.0 - 37.0 G/DL) 34.0 Assessment/Plan Assessment/Plan A: POD #1 s/p L hip IMHS; AVSS. Plan: Continue HSQ Will discuss with Dr. Rodgers weight bear status and need for anticoagulation. Once information discussed, will relay to primary team. Recommend discontinuation of nguyen catheter and IVF. Care per primary team. Continue colace, senna, miralax.
--- NOTE | 2016-03-06 11:17 | Event Note ---
Event Note Event Note: Notified by surgical PA Britney Bryant about Dr. Rodgers's recommendation to start Coumadin for DVT ppx for the patient postoperatively. Also I was informed that patient is to remain as [id number] status for now.
--- NOTE | 2016-03-06 13:59 | Cons- Neurology ---
General Information and HPI Consulting Request Date of Consult: 03/06/16 Requested By: DAYAN MERAZ,LUIS Mckeon Reason for Consult: Parkinsonian variant: PSP? Source of Information: patient, old records Exam Limitations: no limitations History of Present Illness: 70-year-old patient on to me since early 2014 and followed with a provisional diagnosis of progressive supranuclear palsy is now admitted for hip fracture incurred in a mechanical fall. Onset of disease was gradual with gait instability, bradykinesia and mild tremor. She was seen at the [facility] in [place] where the diagnosis was supported clinically although the DATscan was negative. MRI scans have shown the "hummingbird sign". She seemed to be partially responsive to Sinemet and when last seen in the office was on 50/200 3 times a day. Aripiprazole which can cause EPS side effects had been stopped (she is back on this medication here.) She is now followed at the [facility] where the diagnosis is uncertain. They do not think this is either PD or PSP. There the sinemet was stopped, the patient does not report any worsening without. Allergies/Medications Allergies: Coded Allergies: Penicillins (Intermediate, HIVES 03/04/16) NO KNOWN ALLERGIES (10/15/15) Home Med List: Alendronate Sodium 70 MG TAB 1 TAB PO QW OSTEOPOROSIS (Reported) in the morning, at least 30 minutes before the first food, beverage, or medication of the day Amlodipine (Norvasc 5MG Tab) 5 MG TAB 1 TAB PO DAILY HTN (Reported) Aripiprazole (Abilify) 10 MG TAB 1 TAB PO DAILY ANXIETY (Reported) Carbidopa/Levodopa (Carbidopa-Levo ER 50-200 Tab) 50 MG-200 MG TABLET.ER 2 TAB PO BID PARKINSONS (Reported) Clonazepam 0.5 MG TABLET 1 TAB PO BIDP PRN ANXIETY (Reported) Escitalopram Oxalate (Lexapro 10MG) 10 MG TAB 1 TAB PO DAILY ANXIETY ( Reported) Fluticasone Propionate (Flonase) 120 SPRAY/BOT SPR 2 SPRAY NASB DAILY HAY FEVER (Reported) Lactulose 10 GRAM/15 ML SOLUTION 15 ML PO BID CONSTIPATION (Reported) Lubiprostone (Amitiza) 24 MCG CAPSULE 1 CAP PO BID GI (Reported) Multivitamin (Multiple Vitamins) 1 TAB TAB 1 TAB PO D VITAMIN SUPP (Reported) Propranolol HCl 20 MG TABLET 1 TAB PO DAILY ANXIETY (Reported) Simvastatin (Zocor) 20 MG TAB 1 TAB PO QPM CHOLESTEROL (Reported) Thiamine (Vitamin B1) 100 MG TAB 1 TAB PO DAILY VITAMIN SUPP (Reported) Travoprost (Travatan Z Oph Beckie 0.004% 2.5ML) 50 GTT/1 BOT GTT 1 GTT OPH QPM GLAUCOMA (Reported) Valsartan (Diovan) 160 MG TAB 1 TAB PO DAILY HTN (Reported) Current Medications: Current Medications Sig/Erinn Start time Last Medication Dose Route Stop Time Status Admin Acetaminophen 1,000 MG .STK-MED ONE 03/05 1730 DC IV 03/05 1731 Acetaminophen 650 MG Q6P PRN 03/04 1830 AC PO Amlodipine Besylate 5 MG DAILY 03/05 1000 AC PO Aripiprazole 10 MG DAILY 03/05 1000 DC 03/06 PO 0911 Bisacodyl 10 MG DAILY PRN 03/06 0930 AC OR Clonazepam 0.25 MG TID 03/06 1201 AC PO 03/13 1214 Docusate Sodium 100 MG BID 03/04 2200 AC 03/06 PO 0913 Escitalopram Oxalate 10 MG DAILY 03/05 1000 AC 03/06 PO 0913 Fentanyl Citrate 250 MCG .STK-MED ONE 03/05 1730 DC IM 03/05 1731 Heparin Sodium 5,000 UNIT Q8 03/04 2200 AC 03/06 (Porcine) SC 0433 Hydromorphone HCl 2 MG .STK-MED ONE 03/05 1731 DC IM 03/05 1732 Hydromorphone HCl 0.5 MG Q4P PRN 03/04 1830 AC 03/06 IV 0832 Latanoprost 1 GTT AT BEDTIME 03/04 2200 AC 03/05 OPH 2222 Midazolam HCl 2 MG .STK-MED ONE 03/05 1730 DC IM 03/05 1731 Ondansetron HCl 8 MG .STK-MED ONE 03/05 1731 DC IM 03/05 1732 Oxycodone HCl 5 MG Q6 PRN 03/04 1830 AC 03/06 PO 0433 Polyethylene Glycol 17 GM AT BEDTIME 03/04 2200 AC PO Propranolol HCl 20 MG DAILY 03/05 1000 AC PO Senna/Docusate Sodium 2 TAB AT BEDTIME 03/04 2200 AC PO Simethicone 80 MG ONCE ONE 03/06 0930 DC 03/06 PO 03/06 0931 1158 Sodium Chloride 1,000 ML Q10H 03/04 1815 AC 03/06 IV 1151 Warfarin Sodium 5 MG COUMADIN 1700 ONE 03/06 1700 AC PO 03/06 1701 Review of Systems Review of Systems: ROS: A complete medical systems review was obtained. Other than pain on movement and swelling of all 4 extremities no pertinent complaints were found. Past History Travel History Traveled to [place] past 21 day No Medical History Neurological: Parkinson's disease EENT: glaucoma Cardiovascular: hypertension, hyperlipidemia Respiratory: TRACHEOTOMY Gastrointestinal: CONSTIPATION Hepatic: NONE Renal: NONE Musculoskeletal: chronic back pain, fracture, FOOT,SUE ARM COMPRESSION FX Psychiatric: anxiety Endocrine: NONE Blood Disorders: NONE Cancer(s): NONE NANNY CAREGIVER/Reproductive: NONE Surgical History Surgical History: none (trach due to sepsis), TRACHEOTOMY Family History Relations & Conditions If Any: Relation not specified for: *No pertinent family history Psychosocial History Where Do You Live? Home Who Do You Live With? self Services at Home: None Primary Language: Afghan Smoking Status: Never Smoked ETOH Use: occasional use Illicit Drug Use: denies illicit drug use Functional Ability ADLs Independent: dressing, eating, toileting, bathing. Ambulation: independent IADLs Independent: shopping, housework, finances, food prep, telephone, transportation , medication admin. Exam & Diagnostic Data Vital Signs and I&O Vital Signs Date Time Temp Pulse Resp B/P Pulse O2 O2 Flow FiO2 Ox Delivery Rate 03/06 0912 98 98/56 03/06 0827 99.2 98 20 98/56 93 Nasal 3.0L Cannula 03/06 0800 93 Nasal Cannula 03/06 0403 98.3 95 20 112/62 100 03/06 0009 97.5 83 20 104/52 100 03/06 0000 Nasal 3.0L Cannula 03/05 2235 97.8 88 18 108/64 100 Nasal 3.0L Cannula 03/05 1618 98.3 89 19 112/54 97 Room Air 03/05 1430 99.9 82 18 108/54 95 Nasal 2.0L Cannula 03/05 1415 99.9 80 18 90/62 95 Nasal 2.0L Cannula Intake & Output 03/06 1600 03/06 0800 03/06 0000 Intake Total 1200 Output Total 350 Balance 850 Intake, IV 1200 Output, Urine 350 Patient 165 lb Weight Physical Exam: On exam the patient appeared generally well and in no distress. No carotid bruits and no cardiac murmur. 2+ edema hands and ankles Mental status: Alert, attentive, oriented, no language errors, recall and general fund of knowledge seem intact Funduscopic deferred Visual lopez full , Eye movements full horizontally, limited upgaze, pupils midsize equal round and reactive to light. Facial movement symmetric, hypomimic Facial sensation normal bilaterally Hearing intact bilaterally Uvula elevates midline Tongue protrusion is midline Shoulder shrug symmetric Motor power normal. Tone increased all 4 extremities Sensation intact to primary modes Tendon reflexes normal and symmetric without pathologic signs Coordination very slow hand and finger movements. No tremor Gait testing deferred Last 48 Hours of Lab Results: Laboratory Tests 03/06 03/05 0655 0720 Chemistry Sodium (137 - 145 mmol/L) 136 L 137 Potassium (3.5 - 5.1 mmol/L) 3.8 4.1 Chloride (98 - 107 mmol/L) 105 105 Carbon Dioxide (22 - 30 mmol/L) 23 21 L Anion Gap (5 - 16) 8 10 BUN (7 - 17 mg/dL) 12 25 H Creatinine (0.5 - 1.0 mg/dL) 0.6 0.9 Estimated GFR (>60 ml/min) > 60 > 60 BUN/Creatinine Ratio (7 - 25 %) 20.0 27.8 H Total Bilirubin (0.2 - 1.3 mg/dL) 0.8 0.6 Direct Bilirubin (< 0.4 mg/dL) 0.2 0.2 AST (14 - 36 U/L) 54 H 69 H ALT (9 - 52 U/L) 50 51 Alkaline Phosphatase (<127 U/L) 52 61 Creatine Kinase (30 - 135 U/L) 2145 H 3021 H Total Protein (6.3 - 8.2 g/dL) 4.2 L 5.0 L Albumin (3.5 - 5.0 g/dL) 2.1 L 2.7 L Hematology CBC w Diff NO MAN DIFF REQ NO MAN DIFF REQ WBC (4.8 - 10.8 /CUMM) 8.0 10.6 RBC (4.20 - 5.40 /CUMM) 3.02 L 3.06 L Hgb (12.0 - 16.0 G/DL) 8.8 L 9.1 L Hct (37 - 47 %) 26.1 L 26.5 L MCV (81.0 - 99.0 FL) 86.3 86.5 MCH (27.0 - 31.0 PG) 29.0 29.6 RDW (11.5 - 14.5 %) 15.0 H 14.4 Plt Count (130 - 400 /CUMM) 149 165 MPV (7.4 - 10.4 FL) 8.1 8.0 Gran % (42.2 - 75.2 %) 79.4 H 76.9 H Lymphocytes % (20.5 - 51.1 %) 11.4 L 12.3 L Monocytes % (1.7 - 9.3 %) 8.9 10.7 H Eosinophils % (0 - 5 %) 0.1 0 Basophils % (0.0 - 2.0 %) 0.2 0.1 Absolute Granulocytes (1.4 - 6.5 /CUMM) 6.4 8.2 H Absolute Lymphocytes (1.2 - 3.4 /CUMM) 0.9 L 1.3 Absolute Monocytes (0.10 - 0.60 /CUMM) 0.7 H 1.1 H Absolute Eosinophils (0.0 - 0.7 /CUMM) 0 0 Absolute Basophils (0.0 - 0.2 /CUMM) 0 0 PUBS MCHC (33.0 - 37.0 G/DL) 33.7 34.2 03/048 1805 1642 Chemistry Sodium (137 - 145 mmol/L) 137 Potassium (3.5 - 5.1 mmol/L) 4.7 Chloride (98 - 107 mmol/L) 100 Carbon Dioxide (22 - 30 mmol/L) 21 L Anion Gap (5 - 16) 16 BUN (7 - 17 mg/dL) 32 H Creatinine (0.5 - 1.0 mg/dL) 1.1 H Estimated GFR (>60 ml/min) 49 L BUN/Creatinine Ratio (7 - 25 %) 29.1 H Lactic Acid (0.7 - 2.1 mmol/L) 1.6 Creatine Kinase (30 - 135 U/L) 3174 H Urines Urine Color (YEL,AMB,STR) YEL Urine Clarity (CLEAR) CLEAR Urine pH (5.0 - 8.0) 6.0 Ur Specific [place] (1.001 - 1.035) >= 1.030 Urine Protein (NEG,<30 MG/DL) NEG Urine Ketones (NEG) 15 H Urine Nitrite (NEG) NEG Urine Bilirubin (NEG) NEG Urine Urobilinogen (0.1 - 1.0 EU/dl) 0.2 Ur Leukocyte Esterase (NEG) NEG Ur Microscopic SEDIMENT EXAMINED Urine RBC (0 - 5 /HPF) 1-3 Ur Epithelial Cells (NONE,FEW) RARE Hyaline Casts (0/LPF) 10-15 H Urine Hemoglobin (NEG) TRACE-INTACT Urine Glucose (N MG/DL) NEG Imaging/Other Studies: CT scans: 1. No acute intracranial pathology. 2. No acute cervical spine fracture or malalignment. 3. Age-related involutional changes in the brain, similar to prior exam. 4. Moderate degenerative disc disease in the lower cervical spine and multilevel facet arthropathy, most prominent along the right C4-C5 facet joint. Assessment/Plan Assessment: 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, exact diagnosis unclear. [facility] does not think this is supranuclear palsy but follow-up planned. Hip fracture, underwent surgery last night. 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
--- NOTE | 2016-03-06 16:06 | PN- Att Addend ---
Attending MD Review Statement Attending Statement Attending MD Statement: examined this patient, discuss w/resident/PA/FINISH SAW OPERATOR, agreed w/resident/PA/FINISH SAW OPERATOR, reviewed EMR data (avail), discussed w/nursing Attending Assessment/Plan: Patient seen and examined at bedside and discussed with patient the care plan. Agree with the resident's note. Patient's status post fractured and status post open reduction internal fixation of her left femur fracture. Currently doing good postoperatively. Acute anemia status post 1 unit of blood transfusion. Hemoglobin today is 8.8. We will continue to monitor her hemoglobin closely. Next DVT prophylaxis-currently on subcutaneous heparin and started on Coumadin for DVT prophylaxis for hip fracture patient.
[2016-03-06 17:16] VITALS: BP 110/56
[2016-03-07 00:04] VITALS: BP 90/50
--- NOTE | 2016-03-07 06:05 | PN- Housestaff ---
SARAH MERAZ,AKILA 03/07/16 0605: Subjective Follow-up For: Hip fracture status post fall Subjective: Patient seen and examined at bedside. Patient is resting comfortably in bed. Pain in the hip slighlty improved, 7 out of 10 this morning. Patient complains of significant swelling in her extremeties. No other significant complaints. She continues to endorse mild pain in the upper abdomen with straining. She had a BM yesterday. She agrees to trying Gas X and increasing bowel regimen. BP stable in a normal range since discontuing propranolol yest. No events reported overnight. Review of Systems Constitutional: Reports: see HPI. Objective Last 24 Hrs of Vital Signs/I&O Vital Signs Date Time Temp Pulse Resp B/P Pulse O2 O2 Flow FiO2 Ox Delivery Rate 03/07 1700 100.1 85 20 106/56 92 03/07 0948 94 106/56 03/07 0948 94 106/56 03/07 0808 99.4 94 20 106/56 92 Room Air 03/07 0004 100.0 94 20 90/50 90 Room Air Intake & Output 03/07 1600 03/07 0800 03/07 0000 Intake Total 1380 120 360 Output Total 361 060 5311 Balance 1030 -180 -765 Intake, IV 0 Intake, Oral 1380 120 360 Number 0 2 Bowel Movements Output, Urine 263 761 4793 Physical Exam General Appearance: Alert, Oriented X3, Cooperative, No Acute Distress Other Physical Findings: Cardiovascular: Regular Rate, Normal S1, Normal S2 Lungs: Clear to Auscultation, Normal Air Movement Abdomen: Normal Bowel Sounds, Soft, No Tenderness Extremities: right hip tenderness/leg tenderness Current Medications: Current Medications: Current Medications Sig/Erinn Start time Last Medication Dose Route Stop Time Status Admin Acetaminophen 650 MG Q6P PRN 03/04 1830 AC 03/06 PO 1759 Amlodipine Besylate 5 MG DAILY 03/05 1000 AC 03/07 PO 0948 Bisacodyl 10 MG DAILY PRN 03/06 0930 AC [place] Clonazepam 0.25 MG TID 03/06 1201 AC 03/07 PO 03/13 1214 0947 Docusate Sodium 100 MG BID 03/04 2200 AC 03/07 PO 0948 Escitalopram Oxalate 10 MG DAILY 03/05 1000 AC 03/07 PO 0948 Furosemide 20 MG DAILY 03/07 1243 AC PO 03/09 2300 Heparin Sodium 5,000 UNIT Q8 03/04 2199 AC 03/07 (Porcine) SC 1418 Hydromorphone HCl 0.5 MG Q4P PRN 03/04 1829 AC 03/06 IV 0832 Latanoprost 1 GTT AT BEDTIME 03/04 2199 AC 03/06 OPH 2135 Oxycodone HCl 5 MG Q6 PRN 03/04 183 AC 03/07 PO 1418 Patient Medication 1 UNIT ONE NR 03/07 1300 DC Teaching ED 03/07 1330 Polyethylene Glycol 17 GM AT BEDTIME 03/04 2199 AC 03/06 PO 2135 Propranolol HCl 20 MG DAILY 03/05 1000 AC 03/07 PO 0948 Senna/Docusate Sodium 2 TAB AT BEDTIME 03/04 2199 AC 03/06 PO 2135 Warfarin Sodium 7.5 MG COUMADIN 1700 ONE 03/07 1700 DC PO 03/07 1701 Last 24 Hrs of Lab/Lan Results Last 24 Hrs of Labs/Mics: Laboratory Tests 03/07/16 0728: Anion Gap 8, Estimated GFR > 60, BUN/Creatinine Ratio 12.9, Total Bilirubin 0.8, Direct Bilirubin 0.3, AST 42 H, ALT 44, Alkaline Phosphatase 58, Total Protein 4.4 L, Albumin 2.3 L, PT 12.1, INR 1.15, CBC w Diff NO MAN DIFF REQ, RBC 2.91 L, MCV 86.3, MCH 29.4, RDW 14.9 H, MPV 7.7, Gran % 71.5, Lymphocytes % 15.7 L, Monocytes % 11.9 H, Eosinophils % 0.6, Basophils % 0.3, Absolute Granulocytes 5.9, Absolute Lymphocytes 1.3, Absolute Monocytes 1.0 H, Absolute Eosinophils 0 , Absolute Basophils 0, PUBS MCHC 34.1 Assessment/Plan Assessment: This is 70-year-old female with past medical history of hypertension, hyperlipidemia, Parkinson's disease, chronic back pain, anxiety presents to emergency room evaluation after a fall. Vitals upon presentation temperature 98.2, pulse 106, respiratory rate 22, blood pressure 114/60, pulse ox 98 WBC 19.6, creatnine 1.3, BUN 40, CPK 3981 CT scan of pelvis showed evidence of Acute comminuted left intertrochanteric hip fracture. Hip fracture status post fall: CT scan of pelvis showed evidence of Acute comminuted left intertrochanteric hip fracture. Ortho on board, patient scheduled for ORIF left intertrochanteric hip fracture when medically stable. Blood pressure overnight dropped to systolic in 80s, she received normal saline bolus,. H&H dropped to 9.1 and 26, she is to be transfused 1 pack of packed red blood cells, will monitor repeat labs, monitor blood pressure Patient has been on the floor for quite a while, CPK elevated , will hydrate the patient aggressively with normal saline at 150 mL per hour, kidney function improving. - Give Warfarin 7.5mg today - Cont bridging with Heparin for DVT ppx - INR daily - Adequate pain control - Lasix 20mg PO daily for 3 days History of anxiety: To continue home dose of Abilify and Lexapro. History of hypertension: - Proparanolol discontinued on 03/06 due to hypotension DVT prophylaxis Patient is DNR/DNI. Problem List: 1. Lactic acidosis 2. Rhabdomyolysis 3. Constipation 4. Intertrochanteric fracture of left hip Pain Ratin Pain Location: Hip Pain Goal: Remain pain free Pain Plan: Percocet for severe Oxycodone for moderate Tylenol for mild Tomorrow's Labs & Rationales: CBC for H&H monitoring posterior fusion BEP for lytes monitoring LUIS HANLEY 03/12/16 1041: Attending MD Review Statement Attending Statement Attending MD Statement: examined this patient, discuss w/resident/PA/LIQUOR ESTABLISHMENT MANAGER, agreed w/resident/PA/LIQUOR ESTABLISHMENT MANAGER, reviewed EMR data (avail) Attending Assessment/Plan: Patient's status post fractured and status post open reduction internal fixation of her left femur fracture. Currently doing good postoperatively. Acute anemia status post 1 unit of blood transfusion. Hemoglobin stable. We will continue to monitor her hemoglobin closely. DVT prophylaxis-currently on subcutaneous heparin and started on Coumadin for DVT prophylaxis for hip fracture patient. F/u on INR. Fluid overload with swelling of extremities. started on lasix 20mg po for 3 days. will monitor her bp and labs closely.
[2016-03-07 07:59] LABS: ABSOLUTE BASOPHIL COUNT 0 /CUMM (0.0-0.2); ABSOLUTE EOSINOPHIL COUNT 0 /CUMM (0.0-0.7); ABSOLUTE GRANULOCYTE CT 5.9 /CUMM (1.4-6.5); ABSOLUTE LYMPH COUNT 1.3 /CUMM (1.2-3.4); BASOPHIL % 0.3 % (0.0-2.0); EOSINOPHIL % 0.6 % (0-5); GRANULOCYTE % 71.5 % (42.2-75.2); HEMATOCRIT 25.1 % (37-47); MEAN CORPUSCULAR HGB 29.4 PG (27.0-31.0); MEAN CORPUSCULAR HGB CONC 34.1 G/DL (33.0-37.0); MEAN CORPUSCULAR VOLUME 86.3 FL (81.0-99.0); MEAN PLATELET VOLUME 7.7 FL (7.4-10.4); PLATELET COUNT 164 /CUMM (130-400); RBC DISTRIBUTION WIDTH 14.9 % (11.5-14.5); RED BLOOD CELL CT 2.91 /CUMM (4.20-5.40); WHITE BLOOD CELL COUNT 8.3 /CUMM (4.8-10.8)
[2016-03-07 08:08] VITALS: BP 106/56
[2016-03-07 08:26] LABS: PT 12.1 SEC (9.4-12.5)
--- NOTE | 2016-03-07 08:53 | PN- Orthopedic ---
Subjective Subjective: No acute overnight events reported. Pain is well controlled presently. Denies nausea and vomitting. Is voiding spontaneously and has moved bowels. Denies chest pain, shortness of breath and difficulty breathing. Objective Vital Signs and I&Os Vital Signs Date Time Temp Pulse Resp B/P Pulse O2 O2 Flow FiO2 Ox Delivery Rate 03/07 0808 99.4 94 20 106/56 92 Room Air 03/07 0004 100.0 94 20 90/50 90 Room Air 03/06 1759 100.7 03/06 1716 100.7 103 20 110/56 92 03/06 0912 98 98/56 Intake & Output 03/07 1600 03/07 0800 03/07 0000 03/06 1600 03/06 0800 03/06 0000 Intake Total 040 262 5666 Output Total 300 1125 350 Balance -180 -765 850 Intake, IV 1200 Intake, Oral 120 360 Number 2 Bowel Movements Output, Urine 300 1125 350 Patient 165 lb Weight Physical Exam: General: Alert and oriented x3, no acute distress Cardiac: RRR, s1s2 Pulm: CTA bilaterally Extremiteis: MOves all extremities, no resting internal or external rotation of operative leg, distal sensation intact. Motor 4/5 in plantar and dorsi flexion. SKin warm and well perfused. DP pulses palpable, peripheral edema noted, calves soft and non tender Surgical site: Left thigh, dressing dry and intact, blister noted just proximal to the dressing of the distal incision. No drainage. Thigh compartment soft but there is edema noted. Assessment/Plan Assessment/Plan This is a 70 year old female, PMH significant for questionable parkinsons, hld, htn, anxiety. She is pod 2, s/p ORIF left intertrochanteric fracture. Non weight bearing. -Edema noted, consider diurese -Daily dry dressing changes, attempt to leave blister intact for now -Coumadin daily, target inr 2-3 -F/U daily Labs -NWB status to continue for now -Will d/w Dr. Rodgers
[2016-03-07 17:00] VITALS: BP 106/56
--- NOTE | 2016-03-07 18:58 | PN- Att Addend ---
Attending MD Review Statement Attending Statement Attending MD Statement: examined this patient, discuss w/resident/PA/DEVELOPMENTAL PSYCHOLOGIST, agreed w/resident/PA/DEVELOPMENTAL PSYCHOLOGIST, reviewed EMR data (avail) Attending Assessment/Plan: Patient seen and examined at bedside and discussed with patient the care plan. Agree with the resident's note. Patient's status post fractured and status post open reduction internal fixation of her left femur fracture. Currently doing good postoperatively. Acute anemia status post 1 unit of blood transfusion. Hemoglobin stable. We will continue to monitor her hemoglobin closely. DVT prophylaxis-currently on subcutaneous heparin and started on Coumadin for DVT prophylaxis for hip fracture patient. F/u on INR. Fluid overload with swelling of extremities. started on lasix 20mg po for 3 days. will monitor her bp and labs closely.
[2016-03-07 23:52] VITALS: BP 108/58
--- NOTE | 2016-03-08 01:56 | NUR ---
ALERT AND ORIENTED X 3. VITAL SIGNS STABLE. ON ROOM AIR. DRESSINGS ARE CLEAN, DRY AND INTACT. MEDICATION GIVEN FOR PAIN. WILL CONTINUE TO MONITOR
--- NOTE | 2016-03-08 07:27 | PN- Orthopedic ---
Subjective Subjective: Awake, alert, no complaints overnight Pain controlled with meds Did not get oob yesterday Objective Vital Signs and I&Os Vital Signs Date Time Temp Pulse Resp B/P Pulse O2 O2 Flow FiO2 Ox Delivery Rate 03/07 2352 99.4 88 20 108/58 92 Room Air 03/07 1700 100.1 85 20 106/56 92 03/07 0948 94 106/56 03/07 0948 94 106/56 03/07 0808 99.4 94 20 106/56 92 Room Air Intake & Output 03/08 0800 03/08 0000 03/07 1600 03/07 0800 03/07 0000 03/06 1600 Intake Total 884 294 3203 120 360 Output Total 125 521 391 4374 Balance 624 271 2823 -180 -765 Intake, IV 0 Intake, Oral 822 236 1193 120 360 Number 0 2 Bowel Movements Output, Urine 125 510 575 6359 Patient 165 lb Weight Physical Exam: Tmax 100.1 good urine output +bm General: alert and oriented times three Ext: warm, 1+edema all 4 ext, positive sensate, FROM, LLE calf nontender Wound: dressings changed, giuliano intact without drainage, clean Assessment/Plan Assessment/Plan 70 yo female with multiple medical problems now s/p L hip IMHS pod 3 Plan is for PT - non weight bear to LLE Pt will need dry dressing change daily by nursing Wound care - may shower but no soaking or bathing Coumadin for dvt ppx - fu INR - goal INR 2-3 discharge planning - rehab likely, dc per medical team when medically stable Temps - likely atelectasis, no wound infx at this time Follow up with Dr Rodgers in 2-4 weeks, call the office for an appointment Giuliano to be removed POD 14 either in the office or at rehab Sign off - Call if needed
--- NOTE | 2016-03-08 07:36 | PN- Housestaff ---
See Addendum Subjective Follow-up For: Hip fracture status post fall Subjective: pt seen and examined, she complaints of pain in her left hip otherwise lying comfrtably in bed in no acute distress. remains afebrile, she is to be discharged to to [facility]. Review of Systems Constitutional: Denies: chills, fever. Cardiovascular: Denies: chest pain, palpitations. Respiratory: Denies: cough, short of breath, sputum production. Gastrointestinal: Denies: abdominal pain, constipation, diarrhea, nausea, vomiting. Musculoskeletal: Reports: see HPI, joint pain. Objective Last 24 Hrs of Vital Signs/I&O Vital Signs Date Time Temp Pulse Resp B/P Pulse O2 O2 Flow FiO2 Ox Delivery Rate 03/08 1422 Room Air 03/08 0925 89 104/60 03/08 0923 89 104/60 03/08 0800 98.1 89 20 104/60 91 Room Air 03/07 2352 99.4 88 20 108/58 92 Room Air 03/07 1700 100.1 85 20 106/56 92 Intake & Output 03/08 1600 03/08 0800 03/08 0000 Intake Total 720 360 400 Output Total 125 Balance 720 360 275 Intake, Oral 720 360 400 Number 0 Bowel Movements Output, Urine 125 Physical Exam General Appearance: Alert, Oriented X3, Cooperative, No Acute Distress Cardiovascular: Regular Rate, Normal S1, Normal S2, No Murmurs Lungs: Clear to Auscultation, Normal Air Movement Abdomen: Normal Bowel Sounds, Soft, No Tenderness Extremities: No Clubbing, No Cyanosis, rt hip tenderness Current Medications: Current Medications Sig/Erinn Start time Last Medication Dose Route Stop Time Status Admin Acetaminophen 650 MG Q6P PRN 03/04 1830 AC 03/06 PO 1759 Amlodipine Besylate 5 MG DAILY 03/05 1000 AC 03/08 PO 0925 Bisacodyl 10 MG DAILY PRN 03/06 0930 AC DC Calcium 600 MG BID 03/08 1127 AC PO Cholecalciferol 2,000 IU DAILY 03/08 1126 AC PO Clonazepam 0.25 MG TID 03/06 1201 AC 03/08 PO 03/13 1214 0917 Docusate Sodium 100 MG BID 03/04 2200 AC 03/08 PO 0924 Escitalopram Oxalate 10 MG DAILY 03/05 1000 AC 03/08 PO 0924 Furosemide 20 MG DAILY 03/07 1243 AC 03/08 PO 03/09 2300 0924 Heparin Sodium 5,000 UNIT Q8 03/04 2199 AC 03/08 (Porcine) SC 0505 Hydromorphone HCl 0.5 MG Q4P PRN 03/04 183 AC 03/08 IV 1127 Latanoprost 1 GTT AT BEDTIME 03/04 2199 AC 03/07 OPH 2118 Oxycodone HCl 5 MG Q6 PRN 03/04 1830 AC 03/08 PO 0537 Polyethylene Glycol 17 GM AT BEDTIME 03/04 2199 AC 03/07 PO 211 Propranolol HCl 20 MG DAILY 03/05 1000 AC 03/08 PO 0923 Senna/Docusate Sodium 2 TAB AT BEDTIME 03/04 2199 AC 03/07 PO 2118 Warfarin Sodium 7.5 MG COUMADIN 1700 ONE 03/07 1700 DC 03/07 PO 03/07 1701 1928 Last 24 Hrs of Lab/Lan Results Last 24 Hrs of Labs/Mics: Laboratory Tests 03/08/16 0805: Anion Gap 4 L, Estimated GFR > 60, BUN/Creatinine Ratio 17.1, PT 12.7 H, INR 1.21 H, CBC w Diff NO MAN DIFF REQ, RBC 2.98 L, MCV 87.5, MCH 29.5, RDW 14.7 H, MPV 8.5, Gran % 68.0, Lymphocytes % 19.2 L, Monocytes % 10.3 H, Eosinophils % 2.1, Basophils % 0.4, Absolute Granulocytes 6.9 H, Absolute Lymphocytes 2.0, Absolute Monocytes 1.1 H, Absolute Eosinophils 0.2, Absolute Basophils 0, PUBS MCHC 33.7 Assessment/Plan Assessment: This is 70-year-old female with past medical history of hypertension, hyperlipidemia, Parkinson's disease, chronic back pain, anxiety presents to emergency room evaluation after a fall. Vitals upon presentation temperature 98.2, pulse 106, respiratory rate 22, blood pressure 114/60, pulse ox 98 WBC 19.6, creatnine 1.3, BUN 40, CPK 3981 CT scan of pelvis showed evidence of Acute comminuted left intertrochanteric hip fracture. Hip fracture status post fall: CT scan of pelvis showed evidence of Acute comminuted left intertrochanteric hip fracture. Ortho on board, s/p ORIF, H&H dropped initially to 9.1 and 26, she was transfused 1 pack of packed red blood cells, repeat h&h stable. Patient has been on the floor for quite a while before presentation, CPK elevated , recieved aggressively with normal saline at 150 mL per hour, kidney function improved to baseline. - Give Warfarin 7.5mg today - Cont bridging with Heparin for DVT ppx - INR daily - Adequate pain control - Lasix 20mg PO daily for 3 days. History of anxiety: To continue home dose of Lexapro. History of hypertension: - Proparanolol discontinued on 03/06 due to hypotension DVT prophylaxis Patient is DNR/DNI. Problem List: 1. Intertrochanteric fracture of left hip Pain Ratin Pain Location: right hip Pain Goal: Remain pain free Pain Plan: see A/P Tomorrow's Labs & Rationales: none pt to be d/c Discharge Plan Discharge Disposition: STR/NH Stable for Discharge? Yes Anticipated Discharge (Day): today If Discharged Today/In 24 Hrs: W-10/discharge paper done, DC summary done, CMR done
--- NOTE | 2016-03-08 07:44 | Patient Discharge Instructions ---
Discharge Instructions General Discharge Information You were seen/treated for: Left hip fracture You had these procedures: Left hip IMHS Do not soak the wound: Yes No bath, but you may shower: Yes Other wound care: Clean, dry dressing change daily Call for any increased in redness or drainage of wounds Special Instructions: -Patient will need dry dressing change daily by nursing -Wound care - may shower but no soaking or bathing -Daily Coumadin 5mg for dvt ppx - fu INR daily - goal INR 2-3; Duration 35 days psot surgery (stop -Tuesday -Continue IV lovenox 40mg SQ daily till INR is at goal of 2-3, then stop -Follow up with Dr. Rodgers in 2-4 weeks, call the office for an appointment -Mills to be removed Post op day 14 either in the office or at rehab -F/U with Neurologist in 1-2 weeks after discharge -F/U with PCP in 1 week after discharge -F/U with [place] [facility] when stable to travel Contiune lovenox till INR therapeutic (2-3 goal INR), continue coumadin per daily INRs till 04/09/16. for DVT prophylaxis. Please schedule a follow up appointment with your PCP and surgery(removal of giuliano) Diet Continue normal diet: Yes Activity Activity Limited to: No weight bearing (To Left lower extremity) Acute Coronary Syndrome Inclusion Criteria At DC or during hospital stay patient has or had the following: ACS DIAGNOSIS No Discharge Core Measures Meds if any: Prescribed or Continued at Discharge Meds if any: NOT Prescribed or Continued at Discharge Congestive Heart Failure Inclusion Criteria At DC or during hospital stay patient has or had the following: CHF DIAGNOSIS No Discharge Core Measures Meds if any: Prescribed or Continued at Discharge Meds if any: NOT Prescribed or Continued at Discharge Cerebrovascular accident Inclusion Criteria At DC or during hospital stay patient has or had the following: CVA/TIA Diagnosis No Discharge Core Measures Meds if any: Prescribed or Continued at Discharge Meds if any: NOT Prescribed or Continued at Discharge Venous thromboembolism Inclusion Criteria VTE Diagnosis No VTE Type NONE VTE Confirmed by (Test) NONE Discharge Core Measures - Per Current guidelines, there needs to be overlap - treatment for the first 5 days of Warfarin therapy. - If discharged on Warfarin prior to 5 days of - overlap therapy, the patient will need to be - assessed for post discharge needs including - *Post discharge parental anticoagulation - *Warfarin and/or parental anticoagulation education - *Follow up date to check INR post discharge At least 5 days overlap therapy as Inpatient No Meds if any: Prescribed or Continued at Discharge Note: Overlap Therapy is Warfarin and Anticoagulant Meds if any: NOT Prescribed or Continued at Discharge
[2016-03-08 08:00] VITALS: BP 104/60
[2016-03-08 09:03] LABS: PT 12.7 SEC (9.4-12.5)
[2016-03-08 09:20] LABS: ABSOLUTE BASOPHIL COUNT 0 /CUMM (0.0-0.2); ABSOLUTE EOSINOPHIL COUNT 0.2 /CUMM (0.0-0.7); ABSOLUTE GRANULOCYTE CT 6.9 /CUMM (1.4-6.5); ABSOLUTE MONOCYTE COUNT 1.1 /CUMM (0.10-0.60); BASOPHIL % 0.4 % (0.0-2.0); EOSINOPHIL % 2.1 % (0-5); HEMATOCRIT 26.1 % (37-47); MEAN CORPUSCULAR HGB 29.5 PG (27.0-31.0); MEAN CORPUSCULAR HGB CONC 33.7 G/DL (33.0-37.0); MEAN CORPUSCULAR VOLUME 87.5 FL (81.0-99.0); MEAN PLATELET VOLUME 8.5 FL (7.4-10.4); PLATELET COUNT 201 /CUMM (130-400); RBC DISTRIBUTION WIDTH 14.7 % (11.5-14.5); RED BLOOD CELL CT 2.98 /CUMM (4.20-5.40); WHITE BLOOD CELL COUNT 10.2 /CUMM (4.8-10.8)
--- NOTE | 2016-03-08 10:10 | ECHOCARDIOGRAM REPORT ---
BERYL PARRA Age: 70 : 1945 Gender: F Exam Date: 03/07/2016 10:58 Exam Location: [address] [place] [address] Ht (in): 59 Wt (lb): 158 BSA: 1.76 BP: 90 / 50 Ordering Physician: MELISA MATHIAS MD Referring Physician: MELISA MATHIAS MD Technologist: Ligia Alexis [facility] Room Number: 219-01 Indications: HYPERTENSION Rhythm: Sinus Technical Quality: Technically difficult study FINDINGS Left Ventricle Normal size left ventricle. Normal left ventricular wall thickness. Normal left ventricular ejection fraction visually estimated at > 60%. Normal left ventricular wall motion. Right Ventricle Normal right ventricular size and function. Right Atrium Normal right atrial size. Left Atrium Normal left atrial size. Mitral Valve Mitral annular calcification. Aortic Valve Aortic valve mildly thickend. No aortic stenosis. No aortic regurgitation. Tricuspid Valve Tricuspid valve not well visualized, grossly normal. Trace tricuspid regurgitation. Right ventricular systolic pressure estimated to be elevated at 41 mmHg. Pulmonic Valve Pulmonic valve not well visualized, grossly normal. Trace pulmonic regurgitation. Pericardium No pericardial effusion. Great Vessels Normal size aortic root. CONCLUSIONS Normal size left ventricle. Normal left ventricular wall thickness. Normal left ventricular ejection fraction visually estimated at > 60%. Trace tricuspid regurgitation. Right ventricular systolic pressure estimated to be elevated at 41 mmHg. Trace pulmonic regurgitation. Marc Romero M.D. (Electronically Signed) Final Date: 08 March 2016 10:09 MEASUREMENTS (Male / Female) Normal Values 2D ECHO LV Diastolic Diameter PLAX 3.2 cm 4.2 - 5.9 / 3.9 - 5.3 cm LV Systolic Diameter PLAX 1.9 cm 2.1 - 4.0 cm LV Fractional Shortening PLAX 40.6 % 25 - 46 % LV Ejection Fraction 2D Teich 72.7 % IVS Diastolic Thickness 0.9 cm LVPW Diastolic Thickness 1.0 cm LV Relative Wall Thickness 0.6 RV Internal Dim ED PLAX 2.4 cm 1.9 - 3.8 cm LVOT Diameter 1.8 cm Aortic Root Diameter 2.6 cm LA Systolic Diameter LX 2.8 cm 3.0 - 4.0 / 2.7 - 3.8 cm LA Volume 14.0 cm 18 - 58 / 22 - 52 cm Ascending Aorta Diameter 2.6 cm DOPPLER AV Peak Velocity 155.0 cm/s AV Peak Gradient 9.6 mmHg AV Mean Velocity 110.0 cm/s AV Mean Gradient 6.0 mmHg AV Velocity Time Integral 31.0 cm LVOT Peak Velocity 90.2 cm/s LVOT Peak Gradient 3.3 mmHg LVOT Mean Velocity 58.2 cm/s LVOT Mean Gradient 2.0 mmHg LVOT Velocity Time Integral 16.2 cm LVOT Stroke Volume 41.2 cm AV Area Cont Eq vti 1.3 cm AV Area Cont Eq pk 1.5 cm MV Peak Velocity 117.0 cm/s MV Peak Gradient 5.5 mmHg MV Mean Velocity 64.6 cm/s MV Mean Gradient 2.0 mmHg Mitral E Point Velocity 86.4 cm/s Mitral A Point Velocity 95.3 cm/s Mitral E to A Ratio 0.9 MV PHT Velocity 84.3 cm/s MV Deceleration [place] 428.0 cm/s MV Pressure Half Time 59.1 ms MV Area PHT 3.7 cm MV Deceleration Time 182.0 ms TR Peak Velocity 299.0 cm/s TR Peak Gradient 35.8 mmHg Right Atrial Pressure 5.0 mmHg Pulmonary Artery Systolic Pressu 40.8 mmHg Right Ventricular Systolic Press 40.8 mmHg PV Peak Velocity 101.0 cm/s PV Peak Gradient 4.1 mmHg PV Mean Velocity 65.6 cm/s PV Mean Gradient 2.0 mmHg PV Velocity Time Integral 18.4 cm LV E' Lateral Velocity 7.2 cm/s Mitral E to LV E' Lateral Ratio 12.0 LV E' Septal Velocity 8.8 cm/s Mitral E to LV E' Septal Ratio 9.9
--- NOTE | 2016-03-08 10:26 | RADIOLOGY REPORT ---
EXAMINATION: XR PORTABLE CHEST CLINICAL INFORMATION: Low O2 sats and fever COMPARISON: CT scan of March 04, 2015 and chest x-ray of October 11, 2010. TECHNIQUE: Portable view of the chest was obtained. FINDINGS: Since previous CT scan of the chest performed on March 04, 2016 patient has developed a region of airspace disease within the right lower lung consistent with pneumonia or atelectasis. Discoid scarring or atelectasis is seen within the left lung. Heart normal size. No evidence of pulmonary edema. No pneumothorax or significant pleural effusion identified. IMPRESSION: Right lower lung airspace disease consistent with pneumonia.
--- NOTE | 2016-03-08 14:50 | Discharge Summary ---
See Addendum Visit Information Visit Dates Admission Date: 03/04/16 Discharge Date: 03/08/16 Hospital Course Course Attending Physician: DAYAN MERAZ,LUIS Mckeon Primary Care Physician: RORO MERAZ,FAWAD Aleman Consulting Request: 1 Consulting Specialty: Orthopedics Consulting Request: 2 Consulting Specialty: Neurology Hospital Course: 70-year-old female with a past medical history hypertension, glaucoma, dyslipidemia, alcohol abuse, history of septic shock in 2005, possible parkinson 's disease for which she sees Dr. Jacques. She came in status post a fall resulting in acute comminuted left intertrochanteric hip fracture. She was found on the floor the next morning by her neighbors after laying there the entire night following the fall. She denies loss of consciousness but does not remember if she sustained injuries to her head. Vitals upon presentation temperature 98.2, pulse 106, respiratory rate 22, blood pressure 114/60, pulse ox 98 WBC 19.6, creatnine 1.3, BUN 40, CPK 3981 CT scan of pelvis showed evidence of Acute comminuted left intertrochanteric hip fracture. Admission EKG-sinus tachycardia, no significant ST changes Problem List 1. Acute comminuted left intertrochanteric hip fracture s/p 2. Acute kidney injury secondary to rhabdomyolysis/dehydration 3. 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 Her H&H dropped initially to 9.1 and 26 and she was transfused 1 pack of packed red blood cells, repeat H&H has remained stable-see labs below. She received aggressive fluid resuscitation with normal saline with normalization of kidney function. She however developed swelling of her extremities and was diuresed with low doses of po lasix. Pain was controlled on po roxicodone and tylenol. She has been started on po warfarin therapy 5mg daily with sc lovenox bridge. Goal INR is 2-3 at which time lovenox can be discontinued. She should follow up with the orthopedic surgon for further mgt. # History of anxiety: To continue home dose of Lexapro and propranolol for tachycardia. # History of hypertension: Resume Valsartan; watch for hypotension and kidney function. #Gait instability with Parkinsonian features r/o drug induced from Aripiprazole Likely the cause of her fall. She is not responsive to Carbidopa/levodopa, so this medication has been discontinued per her neurologist. She is also off Aripiprazole for now. She will need follow up at [facility] when stable to travel. Also continue follow up with her Neurologist Dr. Jacques after discharge. Allergies: Coded Allergies: Penicillins (Intermediate, HIVES 03/04/16) NO KNOWN ALLERGIES (10/15/15) Significant Procedures: Intramedullary Hip Screws on the Left Pertinent Lab Results: Laboratory Tests 03/08 03/07 0805 0728 Chemistry Sodium (137 - 145 mmol/L) 135 L 137 Potassium (3.5 - 5.1 mmol/L) 3.8 3.6 Chloride (98 - 107 mmol/L) 105 103 Carbon Dioxide (22 - 30 mmol/L) 26 26 Anion Gap (5 - 16) 4 L 8 BUN (7 - 17 mg/dL) 12 9 Creatinine (0.5 - 1.0 mg/dL) 0.7 0.7 Estimated GFR (>60 ml/min) > 60 > 60 BUN/Creatinine Ratio (7 - 25 %) 17.1 12.9 Total Bilirubin (0.2 - 1.3 mg/dL) 0.8 Direct Bilirubin (< 0.4 mg/dL) 0.3 AST (14 - 36 U/L) 42 H ALT (9 - 52 U/L) 44 Alkaline Phosphatase (<127 U/L) 58 Total Protein (6.3 - 8.2 g/dL) 4.4 L Albumin (3.5 - 5.0 g/dL) 2.3 L 25-OH Vitamin D Total (30 - 100 ng/ml) 14.1 L Coagulation PT (9.4 - 12.5 SEC) 12.7 H 12.1 INR (0.90 - 1.19) 1.21 H 1.15 Hematology CBC w Diff NO MAN DIFF REQ NO MAN DIFF REQ WBC (4.8 - 10.8 /CUMM) 10.2 8.3 RBC (4.20 - 5.40 /CUMM) 2.98 L 2.91 L Hgb (12.0 - 16.0 G/DL) 8.8 L 8.6 L Hct (37 - 47 %) 26.1 L 25.1 L MCV (81.0 - 99.0 FL) 87.5 86.3 MCH (27.0 - 31.0 PG) 29.5 29.4 RDW (11.5 - 14.5 %) 14.7 H 14.9 H Plt Count (130 - 400 /CUMM) 201 164 MPV (7.4 - 10.4 FL) 8.5 7.7 Gran % (42.2 - 75.2 %) 68.0 71.5 Lymphocytes % (20.5 - 51.1 %) 19.2 L 15.7 L Monocytes % (1.7 - 9.3 %) 10.3 H 11.9 H Eosinophils % (0 - 5 %) 2.1 0.6 Basophils % (0.0 - 2.0 %) 0.4 0.3 Absolute Granulocytes (1.4 - 6.5 /CUMM) 6.9 H 5.9 Absolute Lymphocytes (1.2 - 3.4 /CUMM) 2.0 1.3 Absolute Monocytes (0.10 - 0.60 /CUMM) 1.1 H 1.0 H Absolute Eosinophils (0.0 - 0.7 /CUMM) 0.2 0 Absolute Basophils (0.0 - 0.2 /CUMM) 0 0 PUBS MCHC (33.0 - 37.0 G/DL) 33.7 34.1 Disposition Summary Disposition Principal Diagnosis: 1. Acute comminuted left intertrochanteric hip fracture. 2. Acute kidney injury secondary to rhabdomyolysis/dehydration Additional Diagnosis: 3. 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, exact diagnosis unclear; possibly supranuclear palsy vs drug induced (aripriprazole) Discharge Disposition: STR Discharge Instructions General Discharge Information Code Status: Do Not Resucitate/Intubat Patient's Diet: Heart Healthy Diet Patient's Activity: PT - non weight bear to LLE Follow-Up Instructions/Appts: -Patient will need dry dressing change daily by nursing -Wound care - may shower but no soaking or bathing -Daily Coumadin 5mg for dvt ppx - fu INR daily - goal INR 2-3; Duration 35 days psot surgery (stop -Tuesday -Continue IV lovenox 40mg SQ daily till INR is at goal of 2-3, then stop -Follow up with Dr. Rodgers in 2-4 weeks, call the office for an appointment -Drake to be removed Post op day 14 either in the office or at rehab -F/U with Neurologist in 1-2 weeks after discharge -F/U with PCP in 1 week after discharge -F/U with [facility] when stable to travel Medications at Discharge Discharge Medications: Stop taking the following medications: Carbidopa/Levodopa (Carbidopa-Levo ER 50-200 Tab) 50 MG-200 MG TABLET.ER ORAL TWICE DAILY Qty = 540 Continue taking these medications: Valsartan (Diovan) 160 MG TAB 1 Tablet ORAL DAILY Thiamine (Vitamin B1) 100 MG TAB 1 Tablet ORAL DAILY Simvastatin (Zocor) 20 MG TAB 1 Tablet ORAL Every night Fluticasone Propionate (Flonase) 120 SPRAY/BOT SPR 2 [place] Both sides of nose DAILY Multivitamin (Multiple Vitamins) 1 TAB TAB 1 Tablet ORAL Every Day Travoprost (Travatan Z Oph Beckie 0.004% 2.5ML) 50 GTT/1 BOT GTT 1 Drop In the eye Every night Escitalopram Oxalate (Lexapro 10MG) 10 MG TAB 1 Tablet ORAL DAILY Alendronate Sodium (Alendronate Sodium) 70 MG TAB 1 Tablet ORAL Once a Week Instructions: in the morning, at least 30 minutes before the first food, beverage, or medication of the day Amlodipine (Norvasc 5MG Tab) 5 MG TAB 1 Tablet ORAL DAILY Lactulose (Lactulose) 10 GRAM/15 ML SOLUTION 15 Milliliters ORAL TWICE DAILY Qty = 900 Lubiprostone (Amitiza) 24 MCG CAPSULE 1 Capsule ORAL TWICE DAILY Qty = 60 Propranolol HCl (Propranolol HCl) 20 MG TABLET 1 Tablet ORAL DAILY Qty = 30 Comments: Last Taken: 03/08/16 Time: 930 am Start taking the following new medications: Enoxaparin Sodium (Lovenox) 40 MG/0.4 ML SYRINGE 0.4 Milliliters Inject into fatty tissue DAILY Qty = 5 No Refills Warfarin Sodium (Coumadin) 5 MG TABLET 1 Tablet ORAL DAILY Qty = 30 No Refills Instructions: please dose coumadin according to daily INR. Contiune lovenox until INR therapeutic goal 2-3. Continue coumadin(dose according to daily INR ) till 04/09/16 for dvt prophylaxis s/p hip fx surgery. Copies To: RORO MERAZ,FAWAD Aleman
[2016-03-08] MEDS ORDERED: CLONAZEPAM0.25 M1 PO (14:55)
[2016-03-08] MEDS ORDERED: LOVENOX40 MG/0.1 SC (15:09)
[2016-03-08] MEDS ORDERED: COUMADIN5 M2 PO (15:09)
[2016-03-08 16:31] VITALS: BP 108/60
[2016-03-08 18:05] VITALS: BP 108/60
--- NOTE | 2016-03-08 19:40 | NUR ---
NURSING NOTE: PATIENT WAS DISCHARGED @ 1855.
--- NOTE | 2016-03-16 16:38 | Operative Report ---
Operative/Inv Procedure Report Surgery Date: 03/05/16 Name of Procedure: Intramedullary rodding left subtrochanteric/intertrochanteric hip fracture Pre-Operative Diagnosis: Subtrochanteric/intertrochanteric left hip fracture Post-Operative Diagnosis: Same Estimated Blood Loss: 50ml to 100ml Surgeon/Superintendent Of Generation: MD Vishal Anesthesia: laryngeal mask airway Implants: Roxi long gamma nail 10 x 32 Drains: None Specimens: None Complications: None Condition: Stable Operative Indication: Patient is a 70-year-old woman who fell injuring her left hip. She was brought to the emergency room for further evaluation. She was evaluated and was found to have a severely displaced four-part intertrochanteric/subtrochanteric hip fracture area she is admitted to the medical service due to ongoing medical issues. Our recommendation was for surgical fixation once she was medically cleared. Risks, benefits and expectations of surgical procedure including but not limited to persistent hip pain, nonunion, malunion, need for subsequent surgery, infection, DVT, injury to blood vessel or nerve and anesthesia risks were discussed. Patient wished to proceed with surgical management. Of note, she did have somewhat unusual displacement of this fracture with superior migration of the shaft and complete obliteration of the greater trochanter. This may result in some muscular weakness depending on healing. Operative/Procedure Note Note: Patient was brought to the operating room and transferred to the operating table area once under appropriate anesthesia the patient's right lower extremity was placed in the well leg schaffer and traction was applied to the left lower extremity. Significant amount of careful manipulation was needed to restore some of the alignment that was disrupted with this fracture. Traction was applied with manipulation and variable to finally restore relationship between the left femoral neck and the shaft. The severely comminuted lesser and greater trochanteric areas were identified. Once I was satisfied with the positioning of the fracture the left lower extremity was prepped and draped in standard fashion. Preoperative IV antibiotics were given prophylactically. A standard short oblique incision was made proximal to the greater trochanter. This was made proximal enough to be able to angle my starting instrument due to the depth of her subcutaneous tissue. Fluoroscopic images were obtained to identify the position of the awl. Again as mentioned, the greater trochanter was severely comminuted. The awl was taken into the greater trochanter and visualized on both AP and lateral planes area I was satisfied with position of this all. I then placed a beaded guidewire through the awl down into the shaft of the left femur. This was confirmed that it was inside the bone down the shaft on both AP and lateral planes. At that point I was able to ream down to the lesser trochanter for anticipated insertion of the appropriate length gamma nail. Patient had significantly osteopenia which allowed me to pass the long gamma nail down the shaft without reaming past the lesser trochanter. The appropriate length nail which was a 32 cm nail was passed with taking care of the anterior bow be in the proper position. Once I placed the nail into the anticipated position I made a separate stab incision to allow for the proximal interlock and the hip compression screw. This was done in standard fashion by drilling measuring and placing the appropriate length screw in place. Once this was placed and confirmed I turned my attention to the distal interlock. I used the fluoroscopic imaging in the lateral position to identify the position of my distal interlock incision. This was confirmed. I then used the drill to run across the distal interlock. Once I confirmed my position I ran the drill across the distal interlock. This was confirmed once again and then the appropriate length distal interlock screw was placed with the leg placed and the appropriate position/rotation. I fixed the proximal interlock with the setscrew. Copious irrigation of the wounds followed. I then repaired the proximal fascia with several interrupted #1 Vicryl sutures. Subcutaneous tissue was closed in 2 layers due to the depth of the wound. Skin was closed with giuliano. The more distal incisions were treated the same way after copious irrigation, subcutaneous tissues closed with 2-0 Vicryl followed by closer with giuliano. Appropriate dressings were applied and patient was awakened and taken the recovery room in good condition. No intraoperative complications. Blood loss was proximal 100 mL Discharge Disposition: PACU
== END 2016-03-08 18:55 | DRG 481 ==
LOC: ENRESERVDT → ENRESERVTM → ERH 12:25 → 2NB 16:34 → ENPENDDIS 16:34 → ERHI 16:34 → 2NB 19:17
PROVIDERS: Physician Assistant Medical; Physician Assistant Surgical; Student in an Organized Health Care Education/Training Program; ADMIT Internal Medicine
PROC: 0QS704Z Reposition Left Upper Femur with Internal Fixation Device, Open Approach (ICD-10-PCS; principal; 2016-03-05)
PROC: 30233N1 Transfusion of Nonautologous Red Blood Cells into Peripheral Vein, Percutaneous Approach (ICD-10-PCS; 2016-03-05)
DX: S72.145A Nondisplaced intertrochanteric fracture of left femur, initial encounter for closed fracture (principal); N17.9 Acute kidney failure, unspecified; M62.82 Rhabdomyolysis; G31.89 Other specified degenerative diseases of nervous system; E86.0 Dehydration; W18.30XA Fall on same level, unspecified, initial encounter; Z91.81 History of falling; Y92.009 Unspecified place in unspecified non-institutional (private) residence as the place of occurrence of the external cause; I10 Essential (primary) hypertension; E78.5 Hyperlipidemia, unspecified; F41.9 Anxiety disorder, unspecified; M50.31 Other cervical disc degeneration, high cervical region; R26.89 Other abnormalities of gait and mobility; H40.9 Unspecified glaucoma
CPT/HCPCS: 2NSBP; 36415; 73502-LT; 74176; 81001; 82436; 86920; 87040; 87086; 93005; 93010; 93306; 96361; 96374; 96375; 97161-GP; 97166-GO; 97530-GO; J0131; J0401; J1644; J2405; J7040; P9016

== ENCOUNTER 2017-06-10 02:03 | Emergency (ER) | payer OTHER, MEDICARE ==
[~2017-06-10 02:03] MED LIST changes: +ALENDRONATE SOD70 M2 PO; -ALENDRONATE SOD70 MG PO; +AMITIZA24 MC1 PO; +B-121500 MCG PO; +CARBIDOPA-LEVO1 EAC9 PO; +CLONAZEPAM0.25 M1 PO; +COUMADIN5 M2 PO; -DIOVAN 160 MG160 MG PO; +DIOVAN80 M1 PO; +FLONASE ALLERG9.9 ML NASB; -FLONASE120 SPRAY/ NASB; +LACTULOSE10 GM/152 PO; -LEXAPRO 10MG10 MG PO; +LEXAPRO20 M1 PO; +LOVENOX40 MG/0.1 SC; -NORVASC 5MG TAB5 MG PO; +NORVASC5 M1 PO; +PROPRANOLOL HCL20 M1 PO; -SIMVASTATIN20 MG PO; +TRAVATAN Z5 ML OPH; -TRAVATAN Z50 GTT/1 B OPH; +ZOCOR20 M1 PO
--- NOTE | 2017-06-10 02:09 | ED AMS/SEIZURE/WEAK/DIZZY ---
History of Present Illness General Chief Complaint: Fall Stated Complaint: BIBA C/O FALL Source: patient, EMS Exam Limitations: confusion Vital Signs & Intake/Output Vital Signs & Intake/Output Vital Signs Date Time Temp Pulse Resp B/P B/P Pulse O2 O2 Flow FiO2 Mean Ox Delivery Rate 06/10 0850 97.6 62 18 100/58 06/10 0710 97.6 62 18 100/58 98 Room Air 06/10 0425 97.8 64 18 106/66 98 06/10 0333 96 Room Air 06/10 0216 97.6 67 18 122/58 100 Room Air Allergies Coded Allergies: Penicillins (Intermediate, HIVES 03/04/16) Triage Nurses Notes Reviewed? yes Onset: Gradual Duration: day(s): Timing: recent history Injury Environment: home Severity: moderate Modifying Factors: Improves With: rest. Associated Symptoms: increased confusion HPI: 71 yo woman, h/o parksinson's disease, presents with weakness, increased falls, confusion. Per the medics, she lives alone and has 2 hours of VNA per day. Yesterday, she fell twice. 911 called. They picked her up. She declined transfer. Tonight, she called 911 again. The EMS crew found her on the ground, on all fours, trying to open the door, unable to stand up. Per the medics, she was increasingly confused and weak. She reports no focal pain or discomfort. She reports feeling weak. (Shreya MERAZ,Rajiv Hunt) Reconcile Medications Cyanocobalamin (Vitamin B-12) (B-12) 1,500 MCG TAB.RAPDIS 1 TAB PO DAILY VITAMIN SUPPORT (Reported) Escitalopram Oxalate (Lexapro) 20 MG TABLET 1 TAB PO DAILY ANXIETY (Reported) Fluticasone Propionate (Flonase Allergy Relief) 50 MCG/ACTUATION SPRAY.SUSP 2 SPRAY NASB DAILY ALLERGIES (Reported) Gabapentin 300 MG CAPSULE 1 CAP PO TID ANXIETY (Reported) Propranolol HCl 20 MG TABLET 4 TAB PO DAILY ANXIETY (Reported) Simvastatin (Zocor*) 20 MG TABLET 1 TAB PO QPM CHOLESTEROL (Reported) Travoprost (Travatan Z) 0.004 % DROPS 1 GTT OPH QPM GLAUCOMA (Reported) Valsartan (Diovan) 80 MG TABLET 1 TAB PO DAILY HTN (Reported) (Andie MERAZ,Gordon Hernandez) Past History Medical History Any Pertinent Medical History? 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 No (Shreya MERAZ,Rajiv Hunt) Review of Systems Review of Systems Constitutional: Reports: no symptoms. EENTM: Reports: no symptoms. Respiratory: Reports: no symptoms. Cardiovascular: Reports: no symptoms. GI: Reports: no symptoms. Genitourinary: Reports: no symptoms. Musculoskeletal: Reports: no symptoms. Skin: Reports: no symptoms. Neurological/Psychological: Reports: no symptoms. Hematologic/Endocrine: Reports: no symptoms. Immunologic/Allergic: Reports: no symptoms. All Other Systems: Reviewed and Negative (Shreya MERAZ,Rajiv Hunt) Physical Exam Physical Exam General Appearance: well developed/nourished, lethargic, mild distress Head: atraumatic, normal appearance Eyes: Bilateral: normal appearance. Ears, Nose, Throat: dry mucosa Neck: normal inspection, supple, full range of motion Respiratory: normal breath sounds, chest non-tender, no respiratory distress, quiet respiration, lungs clear Cardiovascular: regular rate/rhythm Gastrointestinal: normal bowel sounds, soft, non-tender, no organomegaly Back: normal inspection, normal range of motion Extremities: cool extremities, 1+pitting edema Neurologic/Psych: axox 2 (name, [facility]). date "1917" "" (not 20). Month "May" pt knows the president. , strength, light touch, dtr's in upper and lower extremities intact. Core Measures ACS in differential dx? No CVA/TIA Diagnosis No Sepsis Present: No Sepsis Focused Exam Completed? No (Shreya MERAZ,Rajiv Hunt) Progress Differential Diagnosis: dehyrdation, uti, trauma vs other. Plan of Care: Orders Procedure Date/time Status Heart Healthy Diet 06/10 B Active EKG 06/10 0534 Active TROPONIN LEVEL 06/10 045 Complete PARTIAL THROMBOPLASTIN TIME 06/10 449 Complete PROTHROMBIN TIME 06/10 045 Complete Add-on Test (ER Only) 06/10 446 Active PT Evaluate & Treat 06/10 445 Active CASE MANAGEMENT CONSULT 06/10 445 Active CULTURE,URINE 06/11 207 Active URINALYSIS 06/11 207 Complete TROPONIN LEVEL 06/11 207 Complete LIPASE 06/11 207 Complete HEPATIC FUNCTION PANEL 06/11 207 Complete CBC WITHOUT DIFFERENTIAL 06/11 207 Complete BASIC METABOLIC PANEL 06/11 207 Complete AMYLASE 06/11 207 Complete EKG 06/11 207 Active Current Medications Sig/Erinn Start time Last Medication Dose Stop Time Status Admin Atorvastatin Calcium 20 MG 1700 06/10 1700 UNVr (Lipitor) Amlodipine Besylate 5 MG DAILY 06/10 0900 CAN (Norvasc) Escitalopram Oxalate 20 MG DAILY 06/10 0900 UNVr 06/10 (Lexapro) 0850 Losartan Potassium 25 MG DAILY 06/10 0900 UNVr 06/10 (Cozaar) 0850 Propranolol HCl 20 MG DAILY 06/10 0900 CAN (Inderal 20 MG Tablet) Gabapentin 300 MG Q8 06/10 0634 UNVr 06/10 (Neurontin) 0642 Laboratory Tests 06/10/17 0502: Troponin I < 0.01, PT 11.4, INR 1.05, APTT 29 06/10/17 0324: Anion Gap 13, Estimated GFR > 60, BUN/Creatinine Ratio 21.1, Glucose 106 H, Calcium 9.7, Total Bilirubin 0.7, Direct Bilirubin 0.5 H, AST 14, ALT 14, Alkaline Phosphatase 74, Troponin I < 0.01, Total Protein 7.4, Albumin 4.4, Amylase 77, Lipase 146, CBC w Diff MAN DIFF ORDERED, RBC 4.77, MCV 85.0, MCH 27.5, MCHC 32.3 L, RDW 14.4, MPV 7.7, Gran % 78.1 H, Lymphocytes % 13.7 L, Monocytes % 6.4, Eosinophils % 1.3, Basophils % 0.5, Absolute Granulocytes 8.7 H, Segmented Neutrophils 75, Band Neutrophils 1, Absolute Lymphocytes 1.5, Lymphocytes 13 L, Monocytes 10 H, Absolute Monocytes 0.7 H, Eosinophils 1, Absolute Eosinophils 0.1, Absolute Basophils 0.1, Platelet Estimate ADEQUATE, Polychromasia 1+, Hypochromic-Microcytic 1+, Poikilocytosis 1+, Ovalocytes 1+, Fld Total RBCs Counted 100 06/10/17 0241: Urine Color YEL, Urine Clarity CLEAR, Urine pH 6.0, Ur Specific [place] 1.025, Urine Protein NEG, Urine Ketones NEG, Urine Nitrite NEG, Urine Bilirubin NEG, Urine Urobilinogen 0.2, Ur Leukocyte Esterase NEG, Ur Microscopic EXAM NOT REQUIRED, Urine Hemoglobin NEG, Urine Glucose NEG Microbiology 06/10 240 URINE ROUT: Urine Culture - RECD Diagnostic Imaging: Viewed by Me: CT Scan. Discussed w/RAD: CT Scan. Radiology Impression: PATIENT: BERYL PARRA PRESENT AGE: 71 PATIENT ACCOUNT NO: [id number] : 45 LOCATION: [facility] ORDERING PHYSICIAN: Rajiv Cash MD SERVICE DATE: 06/10/17 EXAM TYPE: CAT - CT CERV SPINE WO IV CONTRAST; CT HEAD WO IV CONTRAST EXAMINATION: NONCONTRAST HEAD CT NONCONTRAST CERVICAL SPINE CT INDICATION INFORMATION: Fall. Trauma. Mental status change. COMPARISON: 03/04/2016 TECHNIQUE: Separate noncontrast CT examinations of the head and cervical spine were performed. Coronal and sagittal images were created for each examination at the technologist workstation. DLP: 976 mGy-cm FINDINGS: Head: There is no evidence of acute intracranial hemorrhage or territorial infarction. No abnormal mass effect or midline shift is seen. Farley to white matter differentiation is well preserved. No extra-axial fluid collections are identified. No hydrocephalus. There is mild to moderate global cerebral volume loss. 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 There is likely also thinning of the corpus callosum. There is no abnormal attenuation within the brain parenchyma. The osseous structures and soft tissues are normal. There is a left mastoid air cell effusion. The right mastoid air cells and visualized portions of the paranasal sinuses are well aerated. Cervical spine: There is anatomic alignment of the vertebral bodies and posterior elements. The atlantoaxial and atlantooccipital articulations are intact. Vertebral body heights are maintained. There is multilevel intervertebral disc space narrowing with endplate osteophyte formation and facet arthropathy. Congenital nonfusion of the posterior arch of C1. No evidence of acute fracture. No prevertebral soft tissue swelling. Visualized portions of the lung apices are unremarkable. The thyroid gland is unremarkable. IMPRESSION: 1. No acute intracranial findings. 2. No acute fracture or malalignment of the cervical spine. Moderate multilevel degenerative changes. DICTATED BY: Delio Young MD DATE/TIME DICTATED:06/10/17314 MAPLE SYRUP MAKER: FRANC DATE/TIME TRANSCRIBED:06/10/17314 CONFIDENTIAL, DO NOT COPY WITHOUT APPROPRIATE AUTHORIZATION. <Electronically signed in Other Vendor System> SIGNED BY: Delio Young MD 06/10/17324, PATIENT: BERYL PARRA PRESENT AGE: 71 PATIENT ACCOUNT NO: [id number] : 45 LOCATION: [facility] ORDERING PHYSICIAN: Rajiv Cash MD SERVICE DATE: 06/10/17 EXAM TYPE: CAT - CT ABD & PELVIS W/O IV CONTRAS; CT CHEST WO IV CONTRAST EXAMINATION: CT CHEST WITHOUT CONTRAST CT ABDOMEN AND PELVIS WITHOUT CONTRAST CLINICAL INFORMATION: Fall. Trauma. Mental status change. COMPARISON: 03/04/2016 TECHNIQUE: Multidetector volumetric imaging was performed through the chest, abdomen and pelvis without contrast. Sagittal and coronal reformatted images were obtained on the technologist's workstation. Axial MIP volume rendering provided. DLP: 1168 mGy-cm. FINDINGS: CHEST: Lungs: The central airways are patent. Minimal linear atelectasis/scarring at the left base which is similar to previous. Additional linear atelectasis at the posterior right upper lobe. There is a stable 0.4 cm right middle lobe nodule on series 3 image 33. No consolidation. No pneumothorax or pleural effusion. Mediastinum: The heart is normal in size. No pericardial effusion. Coronary artery calcifications are present. No mediastinal lymphadenopathy. The visualized thyroid gland is unremarkable. The visualized vascular structures are grossly unremarkable. Chest Wall/Axilla: No lymphadenopathy. No chest wall mass. ABDOMEN/PELVIS: Liver, Gallbladder, Biliary Tree: The liver is normal in size, shape, and attenuation. No focal hepatic lesion or biliary ductal dilatation is present. Layering gallstones in the gallbladder lumen. No gallbladder wall thickening or pericholecystic fluid. Pancreas: Unremarkable. Spleen: Unremarkable. Adrenal Glands: Unremarkable. Kidneys and Ureters: The kidneys are normal in size, shape, and attenuation. No hydronephrosis, hydroureter or calculi seen. No perinephric stranding. Bladder: Unremarkable. Gastrointestinal Tract: The stomach is unremarkable. Surgical clips seen in the region of the distal esophagus. The small bowel is normal in caliber. No obstruction. Normal appendix. No colonic wall thickening or inflammatory change. Colonic diverticulosis noted without diverticulitis. No free air or free fluid. Abdominal Wall: No hernia is demonstrated. Lymphovascular Structures: Lymph nodes: Normal. Vascular: Normal caliber aorta with mild atherosclerotic calcifications. Pelvic Viscera: The uterus and adnexa are unremarkable. OSSEOUS STRUCTURES: No suspicious sclerotic or lytic bone lesions are identified. There are multilevel vertebral body compression deformities, most prominent at the T12 and L4 levels. Kyphoplasty at the T12 vertebral body. The appearance is unchanged from prior. There is also mild height loss at L2 and L5, also unchanged. Hardware present in the proximal left femur. Degenerative changes of the hips and throughout the spine. Multiple chronic bilateral rib fractures with no acute rib fracture. IMPRESSION: 1. No acute traumatic finding of the chest, abdomen, or pelvis. 2. Multilevel chronic vertebral body compression deformities. 3. Cholelithiasis. Diverticulosis. 4. Stable 0.4 cm right middle lobe pulmonary nodule. This suggests a benign etiology. DICTATED BY: Delio Young MD DATE/TIME DICTATED:06/10/17320 MAPLE SYRUP MAKER:FRANC DATE/ TIME TRANSCRIBED:06/10/17320 CONFIDENTIAL, DO NOT COPY WITHOUT APPROPRIATE AUTHORIZATION. <Electronically signed in Other Vendor System> SIGNED BY: Delio Young MD 06/10/17 0333 Initial ED EKG: normal axis, normal intervals, normal p-waves, normal QRS complex, normal sinus rhythm Repeat EKG: unchanged Hand-Off Endorsed To: Andie MERAZ,Gordon Hernandez Endorsed Time: 07 Pending: consult (Shreya MERAZ,Rajiv Hunt) Comments: Patient has been seen and evaluated by physical therapy. Patient has a walker at home but usually just uses her cane. As per their recommendations patient has been advised to use her walker. Patient will be discharged home. Patient has multiple services but we will make sure she has physical therapy as well. (Andie MERAZ,Gordon Hernandez) Departure Departure Condition: Stable Clinical Impression Primary Impression: Weakness Referrals: Jason MERAZ,Emeterio Aleman (PCP/Family) Departure Forms: Customer Survey General Discharge Information Comments 06/10/17, 6am... pt resting comfortably... due to recurrent falls and weakness, will have PT and case management evaluate patient... she may need short term rehab. pt to be signed out to dr. castrejon at 7am (Shreya MERAZ,Rajiv Hunt) Departure Disposition: HOME OR SELF CARE Additional Instructions: USE YOUR WALKER FOLLOW UPWITH HOME PHYSICAL THERAPY RETURN IF WYMPTOMS WORSEN OR FORANY CONCERNS (Andie MERAZ,Gordon Hernandez)
--- NOTE | 2017-06-10 03:25 | CT SCAN REPORT ---
EXAMINATION: NONCONTRAST HEAD CT NONCONTRAST CERVICAL SPINE CT INDICATION INFORMATION: Fall. Trauma. Mental status change. COMPARISON: 03/04/2016 TECHNIQUE: Separate noncontrast CT examinations of the head and cervical spine were performed. Coronal and sagittal images were created for each examination at the technologist workstation. DLP: 976 mGy-cm FINDINGS: Head: There is no evidence of acute intracranial hemorrhage or territorial infarction. No abnormal mass effect or midline shift is seen. Farley to white matter differentiation is well preserved. No extra-axial fluid collections are identified. No hydrocephalus. There is mild to moderate global cerebral volume loss. 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 There is likely also thinning of the corpus callosum. There is no abnormal attenuation within the brain parenchyma. The osseous structures and soft tissues are normal. There is a left mastoid air cell effusion. The right mastoid air cells and visualized portions of the paranasal sinuses are well aerated. Cervical spine: There is anatomic alignment of the vertebral bodies and posterior elements. The atlantoaxial and atlantooccipital articulations are intact. Vertebral body heights are maintained. There is multilevel intervertebral disc space narrowing with endplate osteophyte formation and facet arthropathy. Congenital nonfusion of the posterior arch of C1. No evidence of acute fracture. No prevertebral soft tissue swelling. Visualized portions of the lung apices are unremarkable. The thyroid gland is unremarkable. IMPRESSION: 1. No acute intracranial findings. 2. No acute fracture or malalignment of the cervical spine. Moderate multilevel degenerative changes.
[2017-06-10 03:33] LABS: ABSOLUTE BASOPHIL COUNT 0.1 /CUMM (0.0-0.2); ABSOLUTE EOSINOPHIL COUNT 0.1 /CUMM (0.0-0.7); ABSOLUTE GRANULOCYTE CT 8.7 /CUMM (1.4-6.5); ABSOLUTE LYMPH COUNT 1.5 /CUMM (1.2-3.4); ABSOLUTE MONOCYTE COUNT 0.7 /CUMM (0.10-0.60); BASOPHIL % 0.5 % (0.0-2.0); EOSINOPHIL % 1.3 % (0-5); GRANULOCYTE % 78.1 % (42.2-75.2); HEMATOCRIT 40.5 % (37-47); MEAN CORPUSCULAR HGB 27.5 PG (27.0-31.0); MEAN CORPUSCULAR HGB CONC 32.3 G/DL (33.0-37.0); MEAN PLATELET VOLUME 7.7 FL (7.4-10.4); PLATELET COUNT 197 /CUMM (130-400); RBC DISTRIBUTION WIDTH 14.4 % (11.5-14.5); RED BLOOD CELL CT 4.77 /CUMM (4.20-5.40); WHITE BLOOD CELL COUNT 11.2 /CUMM (4.8-10.8)
--- NOTE | 2017-06-10 03:33 | CT SCAN REPORT ---
EXAMINATION: CT CHEST WITHOUT CONTRAST CT ABDOMEN AND PELVIS WITHOUT CONTRAST CLINICAL INFORMATION: Fall. Trauma. Mental status change. COMPARISON: 03/04/2016 TECHNIQUE: Multidetector volumetric imaging was performed through the chest, abdomen and pelvis without contrast. Sagittal and coronal reformatted images were obtained on the technologist's workstation. Axial MIP volume rendering provided. DLP: 1168 mGy-cm. FINDINGS: CHEST: Lungs: The central airways are patent. Minimal linear atelectasis/scarring at the left base which is similar to previous. Additional linear atelectasis at the posterior right upper lobe. There is a stable 0.4 cm right middle lobe nodule on series 3 image 33. No consolidation. No pneumothorax or pleural effusion. Mediastinum: The heart is normal in size. No pericardial effusion. Coronary artery calcifications are present. No mediastinal lymphadenopathy. The visualized thyroid gland is unremarkable. The visualized vascular structures are grossly unremarkable. Chest Wall/Axilla: No lymphadenopathy. No chest wall mass. ABDOMEN/PELVIS: Liver, Gallbladder, Biliary Tree: The liver is normal in size, shape, and attenuation. No focal hepatic lesion or biliary ductal dilatation is present. Layering gallstones in the gallbladder lumen. No gallbladder wall thickening or pericholecystic fluid. Pancreas: Unremarkable. Spleen: Unremarkable. Adrenal Glands: Unremarkable. Kidneys and Ureters: The kidneys are normal in size, shape, and attenuation. No hydronephrosis, hydroureter or calculi seen. No perinephric stranding. Bladder: Unremarkable. Gastrointestinal Tract: The stomach is unremarkable. Surgical clips seen in the region of the distal esophagus. The small bowel is normal in caliber. No obstruction. Normal appendix. No colonic wall thickening or inflammatory change. Colonic diverticulosis noted without diverticulitis. No free air or free fluid. Abdominal Wall: No hernia is demonstrated. Lymphovascular Structures: Lymph nodes: Normal. Vascular: Normal caliber aorta with mild atherosclerotic calcifications. Pelvic Viscera: The uterus and adnexa are unremarkable. OSSEOUS STRUCTURES: No suspicious sclerotic or lytic bone lesions are identified. There are multilevel vertebral body compression deformities, most prominent at the T12 and L4 levels. Kyphoplasty at the T12 vertebral body. The appearance is unchanged from prior. There is also mild height loss at L2 and L5, also unchanged. Hardware present in the proximal left femur. Degenerative changes of the hips and throughout the spine. Multiple chronic bilateral rib fractures with no acute rib fracture. IMPRESSION: 1. No acute traumatic finding of the chest, abdomen, or pelvis. 2. Multilevel chronic vertebral body compression deformities. 3. Cholelithiasis. Diverticulosis. 4. Stable 0.4 cm right middle lobe pulmonary nodule. This suggests a benign etiology.
[2017-06-10 05:22] LABS: PT 11.4 SEC (9.4-12.5); PTT 29 SEC (25-37)
[2017-06-10] MEDS ORDERED: GABAPENTIN300 M2 PO (06:25)
[2017-06-10 08:50] VITALS: BP 100/58
[2017-06-11] MEDS ORDERED: VITAMIN B-121000 MC3 PO (19:26)
[2017-06-11] MEDS ORDERED: PROPRANOLOL HCL80 M2 PO (19:27)
== END 2017-06-10 09:49 ==
LOC: ERH 02:03
PROVIDERS: Pediatrics
DX: R53.1 Weakness (principal)
CPT/HCPCS: 74176; 81003; 87086; 93005; 93010; 97116-GP; 97161-GP; G8978-GP; G8979-GP; G8980-GP

== ENCOUNTER 2017-06-11 16:36 | Inpatient (IN) | payer OTHER, MEDICARE ==
[~2017-06-11] VITALS: Ht 149.9 cm; Wt 89.8 kg
[~2017-06-11 16:36] MED LIST changes: +GABAPENTIN300 M2 PO
--- NOTE | 2017-06-11 17:29 | ED MVC/FALL/TRAUMA COMPLAINT ---
History of Present Illness General Chief Complaint: Fall Stated Complaint: FALL, LAC TO L EYEBROW Source: patient, old records, friend Exam Limitations: no limitations Vital Signs & Intake/Output Vital Signs & Intake/Output Vital Signs Date Time Temp Pulse Resp B/P B/P Pulse O2 O2 Flow FiO2 Mean Ox Delivery Rate 06/11 1645 97.0 61 18 128/80 97 Room Air Allergies Coded Allergies: Penicillins (Intermediate, HIVES 03/04/16) Reconcile Medications Cyanocobalamin (Vitamin B-12) (B-12) 1,500 MCG TAB.RAPDIS 1 TAB PO DAILY VITAMIN SUPPORT (Reported) Escitalopram Oxalate (Lexapro) 20 MG TABLET 1 TAB PO DAILY ANXIETY (Reported) Fluticasone Propionate (Flonase Allergy Relief) 50 MCG/ACTUATION SPRAY.SUSP 2 SPRAY NASB DAILY ALLERGIES (Reported) Gabapentin 300 MG CAPSULE 1 CAP PO TID ANXIETY (Reported) Propranolol HCl 20 MG TABLET 4 TAB PO DAILY ANXIETY (Reported) Simvastatin (Zocor*) 20 MG TABLET 1 TAB PO QPM CHOLESTEROL (Reported) Travoprost (Travatan Z) 0.004 % DROPS 1 GTT OPH QPM GLAUCOMA (Reported) Valsartan (Diovan) 80 MG TABLET 1 TAB PO DAILY HTN (Reported) Triage Note: 71F RETURNS TO ED (SEEN 06/10 FOR 3 FALLS) FOR FALL OVERNIGHT AND HEADSTRIKE. LAC TO LEFT EYEBROW. UNSURE OF LOC. DENIES C-SPINE BONY TENDERNESS ON PALPATION. DENIES HEADACHE. APPEARS SLIGHTLY CONFUSED BUT ABLE TO ANSWER ALL QUESTIONS ACCURATELY IN TRIAGE. UNSURE OF LAST TETANUS. ENDORSES DECREASED APPETITE RECENTLY AND INCREASED WEAKNESS IN HER LEGS. DENIES PAIN OR PARASTHESIAS TO EXTREMITIES. PERRLA. DENIES DYSURIA, HEMATURIA OR N/V/D Triage Nurses Notes Reviewed? yes HPI: Patient was seen in the emergency department yesterday after for falls in 3 days. Patient workup was negative. Patient was evaluated by physical therapy and patient was cleared to go home as long as she used her walker inside of her cane. The patient lives at home alone. Patient was subsequently discharged. Last night patient attempted to get out of bed but her legs gave out and she fell and hit her head on the floor. Patient denies any loss of consciousness. Patient states were unable to intubate the patient even with a walker. They've her back in for evaluation. Patient denies any headache. There is no hip pain. Patient also complaint is feeling weak and very unbalanced. Patient required max assist just to transfer from the wheelchair to the stretcher. Past History Travel History Traveled to [place] past 21 day No Medical History Any Pertinent Medical History? 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 No Review of Systems Review of Systems Constitutional: Reports: see HPI, weakness. Eyes: Reports: no symptoms. Ears, Nose, Throat, Mouth: Reports: no symptoms. Respiratory: Reports: no symptoms. Cardiovascular: Reports: no symptoms. Gastrointestinal/Abdominal: Reports: no symptoms. Genitourinary: Reports: no symptoms. Musculoskeletal: Reports: no symptoms. Skin: Reports: no symptoms. Neurological/Psychological: Reports: no symptoms. All Other Systems: Reviewed and Negative Physical Exam Physical Exam General Appearance: well developed/nourished, alert, awake, anxious, moderate distress Head: SMALL LACERATION ABOVE THE LEFT EYE, LESS THAN ONE HALF CENTIMETER, SUPERFICIAL, DOES NOT REQUIRE SUTURES Eyes: Bilateral: PERRL, EOMI. Ears, Nose, Throat, Mouth: hearing grossly normal, moist mucous membrane Neck: normal inspection, supple, full range of motion Respiratory: normal breath sounds, chest non-tender, no respiratory distress, lungs clear Cardiovascular: regular rate/rhythm, normal peripheral pulses Gastrointestinal: normal bowel sounds, soft, non-tender, no organomegaly Back: normal inspection, normal range of motion Extremities: normal range of motion, pedal edema Neurologic/Psych: no motor/sensory deficits, normal mood/affect Skin: normal color, warm/dry Core Measures ACS in differential dx? No CVA/TIA Diagnosis No Sepsis Present: No Sepsis Focused Exam Completed? No Progress Differential Diagnosis: C/T/L spine injury, ext injury Plan of Care: Orders Procedure Date/time Status Heart Healthy Diet 06/12 B Active ED Holding Orders 06/11 1842 Active Admit to inpatient 06/11 1842 Active Vital Signs 06/11 1842 Active Code Status 06/11 1842 Active URINE DRUGS OF ABUSE 06/12 1727 Active URINALYSIS 06/12 1727 Active COMPREHENSIVE METABOLIC PANEL 06/12 1727 Complete CBC WITHOUT DIFFERENTIAL 06/12 1727 Complete EKG 06/12 1727 Active Laboratory Tests 06/11/17 1733: Anion Gap 11, Estimated GFR > 60, BUN/Creatinine Ratio 25.0, Glucose 96, Calcium 9.4, Total Bilirubin 0.8, AST 17, ALT 21, Alkaline Phosphatase 60, Total Protein 7.2, Albumin 4.3, Globulin 2.9, Albumin/Globulin Ratio 1.5, CBC w Diff NO MAN DIFF REQ, RBC 4.66, MCV 84.4, MCH 27.9, MCHC 33.1, RDW 14.5, MPV 7.8, Gran % 68.6, Lymphocytes % 22.5, Monocytes % 7.1, Eosinophils % 1.5, Basophils % 0.3, Absolute Granulocytes 6.2, Absolute Lymphocytes 2.0, Absolute Monocytes 0.6, Absolute Eosinophils 0.1, Absolute Basophils 0 Diagnostic Imaging: Viewed by Me: CT Scan. Discussed w/RAD: CT Scan. Radiology Impression: PATIENT: BERYL PARRA PRESENT AGE: 71 PATIENT ACCOUNT NO: [id number] : 45 LOCATION: [facility] ORDERING PHYSICIAN: Gordon Chaves MD SERVICE DATE: 06/11/17 EXAM TYPE: CAT - CT HEAD WO IV CONTRAST EXAMINATION: CT HEAD WITHOUT CONTRAST CLINICAL INFORMATION: Fall and head injury. COMPARISON: CT head 06/10/2017. TECHNIQUE: Contiguous axial imaging was performed from the skull base to vertex without intravenous administration of contrast. DLP: 884.41 mGy-cm FINDINGS: No acute intracranial trauma. Generalized parenchymal atrophy of the brain with proportion dilation of the ventricles, sulci, and basilar cisterns. There are intracranial atherosclerotic calcifications and subtle white matter hypodensity in the bilateral periventricular and subcortical white matter which are nonspecific but most consistent with sequela of chronic microvascular ischemia. These changes are unchanged from prior examination. There is no evidence of acute intracranial hemorrhage or territorial infarction. No abnormal mass effect or midline shift is seen. Farley to white matter differentiation is well preserved. No extra-axial fluid collections are identified. The osseous structures and soft tissues are normal. Partial opacification of a few left mastoid air cells, unchanged. Paranasal sinuses and mastoid air cells are otherwise clear and well aerated. IMPRESSION: Stable appearance of the brain. No acute intracranial trauma. DICTATED BY: Ziyad Baca MD DATE/TIME DICTATED:1806 ORDER PLANNER:FRANC DATE/TIME TRANSCRIBED:06/11/171806 CONFIDENTIAL, DO NOT COPY WITHOUT APPROPRIATE AUTHORIZATION. <Electronically signed in Other Vendor System> SIGNED BY: Ziyad Baca MD 06/11/171813 Initial ED EKG: SR, NS T WAVE INVERSIONS, NO CHANGE FROM PRIOR Prior EKG: unchanged Comments: This makes patient's hip for the past 4 days. Patient lives at home alone. Patient is at high risk if she were to be discharged. Departure Departure Disposition: STILL A PATIENT Condition: Stable Clinical Impression Primary Impression: Multifactorial gait disorder Secondary Impressions: Head injury Referrals: Jason MERAZ,Emeterio Aleman (PCP/Family) Departure Forms: Customer Survey General Discharge Information Admission Note Spoke With: Сергей Shi MD Documentation of Exam: Documentation of any treatments & extenuating circumstances including Concerns Regarding Discharge (functional status, medication knowledge or non-compliance, living conditions, etc.) that warrant an admission rather than observation: [ Pain control, PT consultation and treatment, patient is at very high risk to be discharged, patient will most likely need short-term rehabilitation]
[2017-06-11 18:03] LABS: ABSOLUTE BASOPHIL COUNT 0 /CUMM (0.0-0.2); ABSOLUTE EOSINOPHIL COUNT 0.1 /CUMM (0.0-0.7); ABSOLUTE GRANULOCYTE CT 6.2 /CUMM (1.4-6.5); ABSOLUTE MONOCYTE COUNT 0.6 /CUMM (0.10-0.60); BASOPHIL % 0.3 % (0.0-2.0); EOSINOPHIL % 1.5 % (0-5); GRANULOCYTE % 68.6 % (42.2-75.2); HEMATOCRIT 39.4 % (37-47); MEAN CORPUSCULAR HGB 27.9 PG (27.0-31.0); MEAN CORPUSCULAR HGB CONC 33.1 G/DL (33.0-37.0); MEAN CORPUSCULAR VOLUME 84.4 FL (81.0-99.0); MEAN PLATELET VOLUME 7.8 FL (7.4-10.4); PLATELET COUNT 224 /CUMM (130-400); RBC DISTRIBUTION WIDTH 14.5 % (11.5-14.5); RED BLOOD CELL CT 4.66 /CUMM (4.20-5.40)
--- NOTE | 2017-06-11 18:14 | CT SCAN REPORT ---
EXAMINATION: CT HEAD WITHOUT CONTRAST CLINICAL INFORMATION: Fall and head injury. COMPARISON: CT head 06/10/2017. TECHNIQUE: Contiguous axial imaging was performed from the skull base to vertex without intravenous administration of contrast. DLP: 884.41 mGy-cm FINDINGS: No acute intracranial trauma. Generalized parenchymal atrophy of the brain with proportion dilation of the ventricles, sulci, and basilar cisterns. There are intracranial atherosclerotic calcifications and subtle white matter hypodensity in the bilateral periventricular and subcortical white matter which are nonspecific but most consistent with sequela of chronic microvascular ischemia. These changes are unchanged from prior examination. There is no evidence of acute intracranial hemorrhage or territorial infarction. No abnormal mass effect or midline shift is seen. Farley to white matter differentiation is well preserved. No extra-axial fluid collections are identified. The osseous structures and soft tissues are normal. Partial opacification of a few left mastoid air cells, unchanged. Paranasal sinuses and mastoid air cells are otherwise clear and well aerated. IMPRESSION: Stable appearance of the brain. No acute intracranial trauma.
[2017-06-11] MEDS ORDERED: VITAMIN B-121000 MC3 PO (19:26)
[2017-06-11] MEDS ORDERED: PROPRANOLOL HCL80 M2 PO (19:27)
--- NOTE | 2017-06-11 20:09 | History & Physical ---
AngelitaAlanna whitesidefanny 06/11/17 2009: General Information and HPI History of Present Illness: Ms. Myers is a 70-year-old female with a past medical history hypertension, glaucoma, dyslipidemia, alcohol abuse, parkinsonism (dx at [facility]) who presents to the ED after a fall. Patient reports she was sleeping in her bed then approximately 2 am she rolled OOB and hit the floor. She incurred an injury to her left head and noticed bleeding near her left eye. She then stood up and got back into bed, hours later her friend urged her to seek medical attention. She reports in the past week she has fallen 3X from lower extremity weakness and activated her life alert to bring her to the ED. She reports ever since her left hip surgery her "legs give out". At baseline she walks with a cane though physical therapy recommended a rolling walker. She has a AIR DRIER 2h/per day that helps with her ADLs. She denies BARROW, blurry vision, dizziness, LOC, fever, chills, tinnitus, palpitations, numbness, weakness, paresthesias, urinary or bowel symptoms. Allergies/Medications Allergies: Coded Allergies: Penicillins (Intermediate, HIVES 03/04/16) Home Med list Cyanocobalamin (Vitamin B-12) 1,000 MCG TABLET 1 TAB PO QAM SUPPLEMENT ( Reported) Escitalopram Oxalate (Lexapro) 20 MG TABLET 1 TAB PO DAILY ANXIETY (Reported) Gabapentin 300 MG CAPSULE 1 CAP PO TID ANXIETY (Reported) Propranolol HCl (Propranolol HCl ER) 80 MG CAP.SA.24H 1 CAP PO DAILY TREMORS (Reported) Simvastatin (Zocor*) 20 MG TABLET 1 TAB PO QPM CHOLESTEROL (Reported) Travoprost (Travatan Z) 0.004 % DROPS 1 GTT OPH QPM GLAUCOMA (Reported) Valsartan (Diovan) 80 MG TABLET 1 TAB PO DAILY HTN (Reported) Past History Travel History Traveled to [place] past 21 day No Medical History Neurological: PARKINSONS LIKE SYMPTOMS EENT: glaucoma Cardiovascular: hypertension, hyperlipidemia Respiratory: TRACHEOTOMY Gastrointestinal: CONSTIPATION Hepatic: NONE Renal: NONE Musculoskeletal: chronic back pain, fracture, FOOT,SUE ARM COMPRESSION FX Psychiatric: anxiety Endocrine: NONE Blood Disorders: NONE Cancer(s): 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 self Services at Home: None Primary Language: [place] ETOH Use: denies use Illicit Drug Use: denies illicit drug use Functional Ability ADLs Independent: dressing, eating, toileting, bathing. Ambulation: independent IADLs Independent: shopping, housework, finances, food prep, telephone, transportation , medication admin. Review of Systems Review of Systems Constitutional: Reports: see HPI. Exam & Diagnostic Data Last 24 Hrs of Vital Signs/I&O Vital Signs Date Time Temp Pulse Resp B/P B/P Pulse O2 O2 Flow FiO2 Mean Ox Delivery Rate 06/11 2105 97.5 91 18 137/63 99 Room Air 06/11 1645 97.0 61 18 128/80 97 Room Air Physical Exam General Appearance Alert, Oriented X3, Cooperative, No Acute Distress Skin small abrasion above L eye with dried blood and tenderness HEENT EOMI, dry mucous membranes, Nystagmus when looking to L-side Neck Supple, No JVD Cardiovascular Regular Rate, Normal S1, Normal S2 Lungs Clear to Auscultation, Normal Air Movement Abdomen Normal Bowel Sounds, Soft, No Tenderness Neurological Sensation Intact, Cranial Nerves 3-12 NL, RLE 3/5, LLE 4/5 motor strength, unable to plantar flex on L-side Extremities No Edema, Normal Pulses, No Tenderness/Swelling Last 24 Hrs of Labs/Lan: Laboratory Tests 06/11/17 1733: Anion Gap 11, Estimated GFR > 60, BUN/Creatinine Ratio 25.0, Glucose 96, Calcium 9.4, Total Bilirubin 0.8, AST 17, ALT 21, Alkaline Phosphatase 60, Total Protein 7.2, Albumin 4.3, Globulin 2.9, Albumin/Globulin Ratio 1.5, CBC w Diff NO MAN DIFF REQ, RBC 4.66, MCV 84.4, MCH 27.9, MCHC 33.1, RDW 14.5, MPV 7.8, Gran % 68.6, Lymphocytes % 22.5, Monocytes % 7.1, Eosinophils % 1.5, Basophils % 0.3, Absolute Granulocytes 6.2, Absolute Lymphocytes 2.0, Absolute Monocytes 0.6, Absolute Eosinophils 0.1, Absolute Basophils 0 Diagnostic Data EKG Results Diffused flat T waves, HR 53, QTc [address] HEAD WITHOUT CONTRAST FINDINGS: No acute intracranial trauma. Generalized parenchymal atrophy of the brain with proportion dilation of the ventricles, sulci, and basilar cisterns. There are intracranial atherosclerotic calcifications and subtle white matter hypodensity in the bilateral periventricular and subcortical white matter which are nonspecific but most consistent with sequela of chronic microvascular ischemia. These changes are unchanged from prior examination. There is no evidence of acute intracranial hemorrhage or territorial infarction. No abnormal mass effect or midline shift is seen. Farley to white matter differentiation is well preserved. No extra-axial fluid collections are identified. The osseous structures and soft tissues are normal. Partial opacification of a few left mastoid air cells, unchanged. Paranasal sinuses and mastoid air cells are otherwise clear and well aerated. IMPRESSION: Stable appearance of the brain. No acute intracranial trauma. Assessment/Plan Assessment: Ms. Myers is a 70-year-old female with a past medical history hypertension, glaucoma, dyslipidemia, alcohol abuse, parkinsonism (dx at [facility]) who presents to the ED after a fall. Problem list: Mechanical fall Gait instability Hx of Parkinsonian features Plan: Admit to general med for further evaluation and management Gentle hydration Resume home medications Check orthostats Serum alcohol Serum TSH, B12, Folate, Vitamin D Fall precautions PT evaluation for gait instability Diet: Heart healthy DVT ppx: sc Enoxaparin Code: DNR/I As Ranked By This Provider Problem List: 1. S/P FALL 2. Head injury 3. Multifactorial gait disorder 4. Weakness Core Measures/Misc (11/07) Acute Coronary Syndrome ACS Diagnosis: No Congestive Heart Failure Congestive Heart Failure Diagnosis No Cerebrovascular Accident CVA/TIA Diagnosis: No VTE (View Protocol) VTE Risk Factors Age>40 No Mechanical VTE Prophylaxis d/t N/A MechProphylax Ordered No VTE Pharm Prophylaxis d/t NA PharmProphylax ordered Sepsis (View protocol) Sepsis Present: No Treva Lema 06/11/172136: Resident Review Statement Resident Statement: examined this patient, discussed with financial services intern, agreed with financial services intern, reviewed images, amended to note Other Findings: 71 YO lady with hx of hypertension, glaucoma, hyperlipidemia, parkinsonism?, left hip replacement who came to the hospital for chief complaint of falling. Information was obtained from the patient herself. According to the patient she fell out of bed 2 AM yesterday while sleeping to the floor and hit left side of her head and left eye. According to the patient sometimes the left leg gives away and she has unsteady gait she had 2 episodes of fall recently using her life alert to come to the ED. patient denies any blurry vision, dizziness, chest pain, nausea, vomiting, fevers, chills, changes in urinary or bowel habits. Patient does not have any pain at the moment. Patient uses cane for ambulation reports that she has difficulty bending her hips after the left hip surgery.patient uses her leftover klonipin pills prn for sleep as well Vital signs in ED were stable and no fever Alert and oriented 3 Mild abrasion on the left eyebrow Chest clear Heart S1-S2 normal Abdomen distended but not tender Cranial nerve test within normal limits Upper extremity extracts 5 out of 5 Lower extremity strength 4 out of 5 on the left side Mild horizontal nystagmus when patient is looking at the left CBC, BeP, UA were unremarkable EKG showed bradycardia, 53, nonspecific ST-T changes similar to previous EKG, QTC less than 450, OH 208 HEAD cT IMPRESSION: Stable appearance of the brain. No acute intracranial trauma. Assessment Frequent falls and history of Parkinson's and History of hypertension History of glaucoma History of hyperlipidemia Plan Admit to general medicine floor for 3 nights and PT evaluation FOR REHAB Continue propranolol, valsartan, gabapentin, statin, Travatan Fall precautions DNR/DNI, Tylenol for pain, DVT prophylaxis is mechanical and subcu Lovenox, heart healthy diet Jose Guadalupe MERAZ, [facility] 06/11/17 2323: Attending MD Review Statement Attending Statement Attending MD Statement: examined this patient, discuss w/resident/PA/ISOTOPE TECHNICIAN, agreed w/resident/PA/ISOTOPE TECHNICIAN, reviewed images, amended to note Attending Assessment/Plan: 71 yo F with h/o HTN, HLD, Parkinsonian features, essential tremors, alcohol abuse, septic shock (2005), s/p left hip ORIF (Feb 2016) with residual left hip stiffness, is here for evaluation of recurrent falls. Patient was seen in ER early on June 10 for mechanical fall at home. As per ER notes, patient had 3 falls for which she pressed her lifealert, denied transfer to the hospital when EMS arrived for the initial fall. When she fell the third time, she was brought in to ER, work up was negative, was evaluated by PT, cleared to go home and was advised to use her walker. Patient has a walker at home, but tends to use her cane only. She returns today after she fell again overnight and hit her left side of face. She tells us that she rolled and fell out of her bed, whereas per ER records she reported that her legs gave out while attempting to walk the previous night. She c/o difficulty ambulating and feels unsteady on her feet. She denies dizziness, lightheadedness, chest pain, palpitations or dyspnea. She lives alone and has an aide coming in for 2 hours everyday to help with bathing, cooking and washing. Vitals stable. Exam as above. Labs: BUN 20, urine tox screen is positive for Benzos. CT head: no acute injury. EKG: sinus rhythm @ 53, TWI in V2-4 appear more prominent than last EKG, Qtc 406. Echo (2017): EF 60%. Assessment and plan: 1. Recurrent falls, gait instability 2. History of Parkinsonian features 3. Left hip stiffness residual from her hip surgery 4. Minute laceration to left forehead no active bleeding, no suture needed 5. Essential hypertension 6. Urine tox screen positive for benzos - patient apparently takes leftover klonopin to help with sleep. - Admit to General medicine - Fall precautions - Check orthostats - Check troponin - Check alcohol level - Check TSH, vit D and B12 levels - PT eval and STR placement - Case management consult - Please confirm CMR and resume home meds DVT ppx Lovenox. DNR/I.
[2017-06-11 22:18] VITALS: BP 120/58
--- NOTE | 2017-06-11 23:24 | Admission Certification ---
Admission Certification Certification Statement - As attending physician, I certify that at the time of - admission, based on clinical presentation, severity of - symptoms, need for further diagnostic testing and - therapeutic interventions, and risk of adverse outcomes - without in-hospital treatment, in my clinical assessment, - this patient requires an acute hospital stay for a minimum - of two nights or longer. I have also considered psychsocial - factors such as support system, advanced age, financial - issues, cognitive issues, and failed out-patient treatments, - past re-admission history, safety of patient, and lack of - compliance as applicable. Specific rationale supporting this admission is: Gait instability, recurrent falls, needs PT and STR placement.
[2017-06-12 06:20] VITALS: BP 108/60
--- NOTE | 2017-06-12 12:08 | PN- Att Addend ---
Attending Addendum Attending Brief Note Patient seen and examined, denies any current complaints except that she has some pain in her left forehead at the site of laceration. Patient is admitted with a fall and a small forehead laceration which did not require any suturing. Vital Signs Date Time Temp Pulse Resp B/P B/P Pulse O2 O2 Flow FiO2 Mean Ox Delivery Rate 06/12 0904 64 100/60 06/12 0904 64 100/60 06/12 0620 98.1 57 16 108/60 97 Room Air 06/11 2218 97.9 55 20 120/58 98 06/11 2105 97.5 91 18 137/63 99 Room Air 06/11 1645 97.0 61 18 128/80 97 Room Air on exam; aox3, nad. cv; s1,s2 rrr resp; clear abd; soft, nt, bs+ ext; no edema Laboratory Tests 06/12 06/11 0730 2105 Chemistry Sodium (137 - 145 mmol/L) 143 Potassium (3.5 - 5.1 mmol/L) 3.8 Chloride (98 - 107 mmol/L) 103 Carbon Dioxide (22 - 30 mmol/L) 26 Anion Gap (5 - 16) 14 BUN (7 - 17 mg/dL) 18 H Creatinine (0.5 - 1.0 mg/dL) 0.8 Estimated GFR (>60 ml/min) > 60 BUN/Creatinine Ratio (7 - 25 %) 22.5 Toxicology Urine Opiates Screen (>2000 NG/ML) < 100 Methadone Screen (>300 NG/ML) 72 Barbiturate Screen (>200 NG/ML) < 60 Ur Phencyclidine Scrn (>25 NG/ML) < 6.00 Amphetamines Screen (>1000 NG/ML) < 100 U Benzodiazepines Scrn (>200 NG/ML) 220 H Urine Cocaine Screen (>300 NG/ML) < 50 Urine Cannabis Screen (>50 NG/ML) < 5.00 Urines Urine Color (YEL,AMB,STR) YEL Urine Clarity (CLEAR) CLEAR Urine pH (5.0 - 8.0) 6.0 Ur Specific [place] (1.001 - 1.035) >= 1.030 Urine Protein (NEG,<30 MG/DL) NEG Urine Ketones (NEG) NEG Urine Nitrite (NEG) NEG Urine Bilirubin (NEG) NEG Urine Urobilinogen (0.1 - 1.0 EU/dl) 0.2 Ur Leukocyte Esterase (NEG) NEG Ur Microscopic EXAM NOT REQUIRED Urine Hemoglobin (NEG) NEG Urine Glucose (N MG/DL) NEG 06/11 1733 Chemistry Sodium (137 - 145 mmol/L) 140 Potassium (3.5 - 5.1 mmol/L) 4.3 Chloride (98 - 107 mmol/L) 104 Carbon Dioxide (22 - 30 mmol/L) 25 Anion Gap (5 - 16) 11 BUN (7 - 17 mg/dL) 20 H Creatinine (0.5 - 1.0 mg/dL) 0.8 Estimated GFR (>60 ml/min) > 60 BUN/Creatinine Ratio (7 - 25 %) 25.0 Glucose (65 - 99 mg/dL) 96 Calcium (8.4 - 10.2 mg/dL) 9.4 Total Bilirubin (0.2 - 1.3 mg/dL) 0.8 AST (14 - 36 U/L) 17 ALT (9 - 52 U/L) 21 Alkaline Phosphatase (<127 U/L) 60 Troponin I (< 0.11 ng/ml) < 0.01 Total Protein (6.3 - 8.2 g/dL) 7.2 Albumin (3.5 - 5.0 g/dL) 4.3 Globulin (1.9 - 4.2 gm/dL) 2.9 Albumin/Globulin Ratio (1.1 - 2.2 %) 1.5 Vitamin B12 (239 - 931 pg/mL) > 1000 H 25-OH Vitamin D Total (30 - 100 ng/ml) 7.2 L Folate (2.76 - 20.0 ng/mL) 10.3 TSH (0.270 - 4.200 uIU/mL) 1.930 Hematology CBC w Diff NO MAN DIFF REQ WBC (4.8 - 10.8 /CUMM) 9.0 RBC (4.20 - 5.40 /CUMM) 4.66 Hgb (12.0 - 16.0 G/DL) 13.0 Hct (37 - 47 %) 39.4 MCV (81.0 - 99.0 FL) 84.4 MCH (27.0 - 31.0 PG) 27.9 MCHC (33.0 - 37.0 G/DL) 33.1 RDW (11.5 - 14.5 %) 14.5 Plt Count (130 - 400 /CUMM) 224 MPV (7.4 - 10.4 FL) 7.8 Gran % (42.2 - 75.2 %) 68.6 Lymphocytes % (20.5 - 51.1 %) 22.5 Monocytes % (1.7 - 9.3 %) 7.1 Eosinophils % (0 - 5 %) 1.5 Basophils % (0.0 - 2.0 %) 0.3 Absolute Granulocytes (1.4 - 6.5 /CUMM) 6.2 Absolute Lymphocytes (1.2 - 3.4 /CUMM) 2.0 Absolute Monocytes (0.10 - 0.60 /CUMM) 0.6 Absolute Eosinophils (0.0 - 0.7 /CUMM) 0.1 Absolute Basophils (0.0 - 0.2 /CUMM) 0 Toxicology Serum Alcohol (<10 MG/DL) < 10.0 A/P; 71 y/o F with pmh sig for hypertension, glaucoma, dyslipidemia, alcohol abuse, parkinsonism admitted with a fall. Patient also had small forehead laceration which did not require any suturing. Vital signs and blood work stable. Patient will be continued on her home regimen. She is complaining of some pain at the laceration site and she can be given Tylenol for pain control. Continue the rest of her home meds. Patient to work with physical therapy to determine if she would require rehabilitation. Patient on Lovenox for DVT prophylaxis.
[2017-06-12 14:04] VITALS: BP 110/60
--- NOTE | 2017-06-12 21:45 | PN- Housestaff ---
Subjective Follow-up For: Mechanical fall Gait instability History of parkinsonian features Subjective: No acute events overnight. Patient states that she has no pain. Review of Systems Constitutional: Reports: see HPI. Objective Last 24 Hrs of Vital Signs/I&O Vital Signs Date Time Temp Pulse Resp B/P B/P Pulse O2 O2 Flow FiO2 Mean Ox Delivery Rate 06/12 1404 97.7 60 20 110/60 97 06/12 0904 64 100/60 06/12 0904 64 100/60 06/12 0800 Room Air 06/12 0620 98.1 57 16 108/60 97 Room Air 06/11 2218 97.9 55 20 120/58 98 Intake & Output 06/12 1600 06/12 0800 06/12 0000 Intake Total 860 300 300 Output Total Balance 860 300 300 Intake, Oral 860 300 300 Patient 202 lb 200 lb Weight Weight Bed scale Bed scale Measurement Method Physical Exam General Appearance: Alert, Oriented X3, Cooperative Skin: left facial bruise and tenderness Cardiovascular: Regular Rate, Normal S1, Normal S2 Lungs: Clear to Auscultation, Normal Air Movement Abdomen: Normal Bowel Sounds, Soft, No Tenderness Extremities: 2+ radial pulse Current Medications: Current Medications Sig/Erinn Start time Last Medication Dose Route Stop Time Status Admin Acetaminophen 650 MG Q6P PRN 06/11 2030 AC PO Atorvastatin Calcium 10 MG 1700 06/12 1700 AC 06/12 PO 170 Cyanocobalamin 1,000 MCG QAM 06/12 0900 AC 06/12 PO 0904 Enoxaparin Sodium 40 MG DAILY 06/12 09 AC 06/12 SC 0905 Ergocalciferol 50,000 IU ONCE A WEEK 06/12 1000 AC 06/12 PO 07/31 1001 0904 Gabapentin 300 MG TID 06/12 0900 AC 06/12 PO 2024 Latanoprost 1 GTT AT BEDTIME 06/12 2100 AC 06/12 OPH 2024 Losartan Potassium 50 MG DAILY 06/12 09 AC 06/12 PO 0904 Nystatin 1 JACLYN TID 06/12 0954 AC 06/12 TOP 2024 Nystatin 1 JACLYN TID PRN 06/12 0915 AC 06/12 TOP 1313 Propranolol HCl 80 MG DAILY 06/12 0900 AC 06/12 PO 0904 Senna 374 MG ONCE ONE 06/12 1745 DC 06/12 PO 06/12 [id number] Last 24 Hrs of Lab/Lan Results Last 24 Hrs of Labs/Mics: Laboratory Tests 06/12/17 0730: Anion Gap 14, Estimated GFR > 60, BUN/Creatinine Ratio 22.5, Calcium 9.2 Assessment/Plan Assessment: 70-year-old female with a past medical history hypertension, glaucoma, dyslipidemia, alcohol abuse, parkinsonism (dx at [facility]) who presents to the ED after a fall. Problem list: Mechanical fall Gait instability Hx of Parkinsonian features Plan: -Follow up PT eval for STR placement -Check orthostats -Confirm benzo home medications -Low vitamin D, follow-up calcium levels -B12 greater than 1000 -U tox positive for benzos -Serum TSH, B12, normal -folate >1000 DVT ppx: sc Enoxaparin Code: DNR/I Problem List: 1. Multifactorial gait disorder 2. S/P FALL Pain Ratin Pain Location: front upper orbit Pain Goal: Pain 4 or less Pain Plan: pathway Tomorrow's Labs & Rationales: cbc bep
[2017-06-12 22:08] VITALS: BP 132/80
[2017-06-13 06:32] VITALS: BP 120/66
[2017-06-13 09:12] LABS: ABSOLUTE BASOPHIL COUNT 0 /CUMM (0.0-0.2); ABSOLUTE EOSINOPHIL COUNT 0.1 /CUMM (0.0-0.7); ABSOLUTE GRANULOCYTE CT 5.8 /CUMM (1.4-6.5); ABSOLUTE LYMPH COUNT 1.5 /CUMM (1.2-3.4); ABSOLUTE MONOCYTE COUNT 0.4 /CUMM (0.10-0.60); BASOPHIL % 0.4 % (0.0-2.0); EOSINOPHIL % 1.6 % (0-5); GRANULOCYTE % 74.4 % (42.2-75.2); MEAN CORPUSCULAR HGB 27.9 PG (27.0-31.0); MEAN CORPUSCULAR HGB CONC 33.1 G/DL (33.0-37.0); MEAN CORPUSCULAR VOLUME 84.4 FL (81.0-99.0); MEAN PLATELET VOLUME 8.1 FL (7.4-10.4); PLATELET COUNT 180 /CUMM (130-400); RBC DISTRIBUTION WIDTH 14.4 % (11.5-14.5); RED BLOOD CELL CT 4.26 /CUMM (4.20-5.40)
--- NOTE | 2017-06-13 10:16 | PN- Housestaff ---
Subjective Follow-up For: Mechanical fall Gait instability History of parkinsonian features Subjective: No acute events overnight. Patient states that she is constipated. States that the left upper eye still somewhat sore. States she is able to walk to bathroom with support. Review of Systems Constitutional: Reports: see HPI. Objective Last 24 Hrs of Vital Signs/I&O Vital Signs Date Time Temp Pulse Resp B/P B/P Pulse O2 O2 Flow FiO2 Mean Ox Delivery Rate 06/13 0848 97.9 56 18 120/66 06/13 0847 97.9 56 18 120/66 06/13 0632 97.9 56 18 120/66 95 Room Air 06/12 2208 98.2 56 18 132/80 96 06/12 1404 97.7 60 20 110/60 97 Intake & Output 06/13 1600 06/13 0800 06/13 0000 Intake Total 0 600 Output Total 350 Balance -350 600 Intake, Oral 0 600 Number 0 Bowel Movements Output, Urine 350 Patient 202 lb Weight Weight Bed scale Measurement Method Physical Exam General Appearance: Alert, Oriented X3, Cooperative, No Acute Distress, obese HEENT: left upper eye half-inch gash Cardiovascular: Regular Rate, Normal S1, Normal S2 Lungs: Clear to Auscultation, Normal Air Movement Abdomen: Normal Bowel Sounds, Soft, No Tenderness Vascular: 2+ radial pulses Current Medications: Current Medications Sig/Erinn Start time Last Medication Dose Route Stop Time Status Admin Acetaminophen 650 MG Q6P PRN 06/11 2030 AC PO Atorvastatin Calcium 10 MG 1700 06/12 1700 AC 06/12 PO 1701 Bisacodyl 10 MG ONCE ONE 06/13 0815 DC [place] 06/13 0916 Cyanocobalamin 1,000 MCG QAM 06/12 09 AC 06/13 PO 0847 Docusate Sodium 100 MG DAILY NEEDED PRN 06/13 0915 AC 06/13 PO 1028 Enoxaparin Sodium 40 MG DAILY 06/12 09 AC 06/13 SC 0850 Ergocalciferol 50,000 IU ONCE A WEEK 06/12 1000 AC 06/12 PO 07/31 1001 0904 Escitalopram Oxalate 20 MG DAILY 06/13 0915 AC 06/13 PO 1028 Gabapentin 300 MG TID 06/12 0900 AC 06/13 PO 0847 Latanoprost 1 GTT AT BEDTIME 06/12 2100 AC 06/12 OPH 2024 Losartan Potassium 50 MG DAILY 06/12 09 AC 06/13 PO 0847 Nystatin 1 JACLYN TID 06/12 0954 06/13 TOP 0849 Nystatin 1 JACLYN TID PRN 06/12 0915 06/12 TOP 1313 Polyethylene Glycol 17 GM DAILY PRN 06/13 0915 AC 06/13 PO 1029 Propranolol HCl 80 MG DAILY 06/12 09 AC 06/13 PO 0848 Senna 187 MG AT BEDTIME PRN 06/13 0815 PO Senna 374 MG ONCE ONE 06/12 1744 DC 06/12 PO 06/12 Last 24 Hrs of Lab/Lan Results Last 24 Hrs of Labs/Mics: Laboratory Tests 06/13/17 0836: Anion Gap 11, Estimated GFR > 60, BUN/Creatinine Ratio 23.8, CBC w Diff NO MAN DIFF REQ, RBC 4.26, MCV 84.4, MCH 27.9, MCHC 33.1, RDW 14.4, MPV 8.1, Gran % 74.4, Lymphocytes % 18.8 L, Monocytes % 4.8, Eosinophils % 1.6, Basophils % 0.4 , Absolute Granulocytes 5.8, Absolute Lymphocytes 1.5, Absolute Monocytes 0.4, Absolute Eosinophils 0.1, Absolute Basophils 0 Assessment/Plan Assessment: 70-year-old female with a past medical history hypertension, glaucoma, dyslipidemia, alcohol abuse, parkinsonism (dx at [facility]) who presents to the ED after a fall. Problem list: Mechanical fall Gait instability Hx of Parkinsonian features Obesity Plan: -Physical therapy recommends STR -Check orthostats -Restart Lexapro -Bowel regimen for constipation -start vit d supplementation -Low vitamin D, normal calcium levels -B12 greater than 1000 -U tox positive for benzos -Serum TSH, B12, normal -folate >1000 DVT ppx: sc Enoxaparin #DNR DNI Problem List: 1. Multifactorial gait disorder Pain Ratin Pain Location: none Pain Goal: Pain 4 or less Pain Plan: pathway Tomorrow's Labs & Rationales: none
[2017-06-13 10:22] LABS: WHITE BLOOD CELL COUNT 7.9 /CUMM (4.8-10.8)
--- NOTE | 2017-06-13 11:21 | PN- Att Addend ---
Attending Addendum Attending Brief Note Patient seen and examined, feels ok. Pain above the forehead is better. Has been seen by PT and they recommended STR. c/o constipation. Vital Signs Date Time Temp Pulse Resp B/P B/P Pulse O2 O2 Flow FiO2 Mean Ox Delivery Rate 06/13 0848 97.9 56 18 120/66 06/13 0847 97.9 56 18 120/66 06/13 0632 97.9 56 18 120/66 95 Room Air 06/12 2208 98.2 56 18 132/80 96 06/12 1404 97.7 60 20 110/60 97 on exam; aoox3, nad. cv; s1,s2, rrr resp; clear abd; soft, nt, bs+ ext; no edema Laboratory Tests 06/14 0736 Chemistry Sodium (137 - 145 mmol/L) 142 Potassium (3.5 - 5.1 mmol/L) 4.0 Chloride (98 - 107 mmol/L) 105 Carbon Dioxide (22 - 30 mmol/L) 26 Anion Gap (5 - 16) 11 BUN (7 - 17 mg/dL) 19 H Creatinine (0.5 - 1.0 mg/dL) 0.8 Estimated GFR (>60 ml/min) > 60 BUN/Creatinine Ratio (7 - 25 %) 23.8 Hematology CBC w Diff NO MAN DIFF REQ WBC (4.8 - 10.8 /CUMM) 7.9 RBC (4.20 - 5.40 /CUMM) 4.26 Hgb (12.0 - 16.0 G/DL) 11.9 L Hct (37 - 47 %) 36.0 L MCV (81.0 - 99.0 FL) 84.4 MCH (27.0 - 31.0 PG) 27.9 MCHC (33.0 - 37.0 G/DL) 33.1 RDW (11.5 - 14.5 %) 14.4 Plt Count (130 - 400 /CUMM) 180 MPV (7.4 - 10.4 FL) 8.1 Gran % (42.2 - 75.2 %) 74.4 Lymphocytes % (20.5 - 51.1 %) 18.8 L Monocytes % (1.7 - 9.3 %) 4.8 Eosinophils % (0 - 5 %) 1.6 Basophils % (0.0 - 2.0 %) 0.4 Absolute Granulocytes (1.4 - 6.5 /CUMM) 5.8 Absolute Lymphocytes (1.2 - 3.4 /CUMM) 1.5 Absolute Monocytes (0.10 - 0.60 /CUMM) 0.4 Absolute Eosinophils (0.0 - 0.7 /CUMM) 0.1 Absolute Basophils (0.0 - 0.2 /CUMM) 0 A/P; 71 y/o F with pmh sig for hypertension, glaucoma, dyslipidemia, alcohol abuse, parkinsonism admitted with a fall. Patient also had small forehead laceration which did not require any suturing. Patient overall doing better. Pain is controlled. Patient's RN asked about Lexapro which will be restarted. Patient has been seen by physical therapy and they recommended rehabilitation. Please start bowel regimen. DVT px; Lovenox. PT recommends STR.
--- NOTE | 2017-06-13 11:40 | Discharge Summary ---
Visit Information Visit Dates Admission Date: 06/11/17 Discharge Date: 06/14/17 Hospital Course Course Attending Physician: Dona Hester MD Primary Care Physician: Emeterio Gomez MD Hospital Course: 71-year-old woman with history of hypertension, hyperlipidemia, excessive alcohol use, parkinsonism presented to [facility] ED on 06/11/2017 for evaluation of recurrent falls. Prior to this admission, patient had presented to ER on June 10 for a mechanical fall at home. On the day of admission, patient reported falling, thereby hitting her left side of face. The patient at the time reported that she had ruled and fell out of bed; on the contrary ER records noted that patient mentioned that her legs gave out while attempting to walk. Patient did report difficulty ambulating and feeling unsteady on her feet. She denied any dizziness, lightheadedness, chest pain, palpitations or dyspnea. Patient lives alone at home and has an aide who comes every 2 hours daily to help with bathing, cooking and washing. Vitals stable. Exam as above. Labs: BUN 20, urine tox screen is positive for Benzos. CT head: no acute injury. EKG: sinus rhythm @ 53, TWI in V2-4 appear more prominent than last EKG, Qtc 406. Echo (2017): EF 60%. Patient was admitted to general medicine floors for recurrent falls and gait instability. Patient will put physical therapy, and they recommended the patient discharged to short-term rehabilitation. During the course of her stay, patient showed continued improvement and her pain is well controlled while in house. Patient remains stable to be [facility]. All her home medications were continued. CODE STATUS: DNR/DNI. Diet: Heart healthy diet. DVT prophylaxis while inpatient: Lovenox. Allergies: Coded Allergies: Penicillins (Intermediate, HIVES 03/04/16) Disposition Summary Disposition Principal Diagnosis: Gait instability, recurrent falls. Additional Diagnosis: Forehead laceration Discharge Disposition: SNF Discharge Instructions General Discharge Information Code Status: Do Not Resucitate/Intubat Patient's Diet: Heart healthy diet. Patient's Activity: [facility]charge to [facility] for [facility]term rehabilitation. Follow-Up Instructions/Appts: Please follow-up with primary care physician as an outpatient. Medications at Discharge Discharge Medications: Continue taking these medications: Valsartan (Diovan) 80 MG TABLET 1 Tablet ORAL DAILY Simvastatin (Zocor*) 20 MG TABLET 1 Tablet ORAL Every night Travoprost (Travatan Z) 0.004 % DROPS 1 Drop In the eye Every night Escitalopram Oxalate (Lexapro) 20 MG TABLET 1 Tablet ORAL DAILY Gabapentin (Gabapentin) 300 MG CAPSULE 1 Capsule ORAL THREE TIMES DAILY Qty = 90 Cyanocobalamin (Vitamin B-12) 1,000 MCG TABLET 1 Tablet ORAL Every Morning Propranolol HCl (Propranolol HCl ER) 80 MG CAP.SA.24H 1 Capsule ORAL DAILY Qty = 30 Start taking the following new medications: Cholecalciferol (Vitamin D3) (Vitamin D) 1,000 UNIT TABLET 1 Tablet ORAL DAILY Qty = 30 No Refills Copies To: Jason MERAZ,Emeterio Aleman Attending MD Review Statement Documenting Attending: Mir MERAZ,Dona
--- NOTE | 2017-06-13 14:08 | Patient Discharge Instructions ---
Discharge Instructions General Discharge Information Special Instructions: Please follow up with your pcp in 1 week. Acute Coronary Syndrome Inclusion Criteria At DC or during hospital stay patient has or had the following: Discharge Core Measures Meds if any: Prescribed or Continued at Discharge Meds if any: NOT Prescribed or Continued at Discharge Congestive Heart Failure Inclusion Criteria At DC or during hospital stay patient has or had the following: Discharge Core Measures Meds if any: Prescribed or Continued at Discharge Meds if any: NOT Prescribed or Continued at Discharge Cerebrovascular accident Inclusion Criteria At DC or during hospital stay patient has or had the following: CVA/TIA Diagnosis No Discharge Core Measures Meds if any: Prescribed or Continued at Discharge Meds if any: NOT Prescribed or Continued at Discharge Venous thromboembolism Discharge Core Measures - Per Current guidelines, there needs to be overlap - treatment for the first 5 days of Warfarin therapy. - If discharged on Warfarin prior to 5 days of - overlap therapy, the patient will need to be - assessed for post discharge needs including - *Post discharge parental anticoagulation - *Warfarin and/or parental anticoagulation education - *Follow up date to check INR post discharge Meds if any: Prescribed or Continued at Discharge Note: Overlap Therapy is Warfarin and Anticoagulant Meds if any: NOT Prescribed or Continued at Discharge
[2017-06-13] MEDS ORDERED: VITAMIN D1000 UNIT PO (14:09)
[2017-06-13 14:28] VITALS: BP 110/60
[2017-06-13 21:54] VITALS: BP 122/66
[2017-06-14 05:40] VITALS: BP 120/62
--- NOTE | 2017-06-14 07:16 | PN- Housestaff ---
Subjective Follow-up For: Mechanical fall Gait instability Complaints: no complaints Subjective: Patient seen and examined at bedside. No overnight events. No complaints. Review of Systems Constitutional: Reports: no symptoms, see HPI. Objective Last 24 Hrs of Vital Signs/I&O Vital Signs Date Time Temp Pulse Resp B/P B/P Pulse O2 O2 Flow FiO2 Mean Ox Delivery Rate 06/14 1244 98.7 69 20 120/62 06/14 1030 98.7 69 20 120/62 06/14 0937 98.7 69 20 120/62 06/14 0835 Room Air 06/14 0540 98.7 69 20 120/62 96 Room Air 06/13 2154 98.0 65 16 122/66 96 Room Air 06/13 1428 98.5 64 18 110/60 98 Intake & Output 06/14 1600 06/14 0800 06/14 0000 Intake Total 250 490 Output Total Balance 250 490 Intake, IV 10 10 Intake, Oral 240 480 Patient 198 lb Weight Physical Exam General Appearance: Alert, Oriented X3, Cooperative, No Acute Distress Cardiovascular: Regular Rate, Normal S1, Normal S2, No Murmurs Lungs: Clear to Auscultation Abdomen: Normal Bowel Sounds, Soft, No Tenderness, No Hepatospenomegaly Neurological: Normal Speech, Strength at 5/5 X4 Ext, Normal Tone Extremities: No Edema Current Medications: Current Medications Sig/Erinn Start time Last Medication Dose Route Stop Time Status Admin Acetaminophen 650 MG Q6P PRN 06/11 2030 DCD PO Atorvastatin Calcium 10 MG 1700 06/12 1700 DCD 06/13 PO 1706 Cholecalciferol 1,000 IU DAILY 06/13 1407 DCD 06/14 PO 0937 Cyanocobalamin 1,000 MCG QAM 06/12 0900 DCD 06/14 PO 0937 Docusate Sodium 100 MG DAILY NEEDED PRN 06/13 0915 DCD 06/13 PO 1028 Enoxaparin Sodium 40 MG DAILY 06/12 09 DCD 06/14 SC 0937 Ergocalciferol 50,000 IU ONCE A WEEK 06/12 1000 DCD 06/12 PO 07/31 1001 0904 Escitalopram Oxalate 20 MG DAILY 06/13 0915 DCD 06/14 PO 0937 Gabapentin 300 MG TID 06/12 0900 DCD 06/14 PO 1319 Latanoprost 1 GTT AT BEDTIME 06/12 2100 DCD 06/13 OPH 2030 Losartan Potassium 50 MG DAILY 06/12 0900 DCD 06/14 PO 0937 Nystatin 1 JACLYN TID 06/12 0954 DCD 06/14 TOP 1321 Nystatin 1 JACLYN TID PRN 06/12 0915 DCD 06/12 TOP 1313 Patient Medication 1 ED ONE ONE 06/13 1715 DC Teaching ED 06/13 1716 Polyethylene Glycol 17 GM DAILY PRN 06/13 0915 DCD 06/13 PO 1029 Propranolol HCl 80 MG DAILY 06/12 0900 DCD 06/14 PO 1030 Senna 187 MG AT BEDTIME PRN 06/13 0915 DCD 06/13 PO 2031 Assessment/Plan Assessment: 70-year-old female with a past medical history hypertension, glaucoma, dyslipidemia, alcohol abuse, parkinsonism (dx at [facility]) who presents to the ED after a fall. Problem list: Mechanical fall Gait instability Plan: -Physical therapy recommends STR. Plan to discharge to short-term rehabilitation today. -Continue Lexapro and vitamin D supplementation. -Bowel regimen for constipation DVT ppx: sc Enoxaparin #DNR DNI Problem List: 1. S/P FALL Pain Ratin Pain Location: none Pain Goal: Remain pain free Pain Plan: tylenol Tomorrow's Labs & Rationales: none
--- NOTE | 2017-06-14 10:57 | PN- Att Addend ---
Attending Addendum Attending Brief Note Patient seen and examined, overall feeling much better. She says she wants to go home. PT recommended STR. Vital Signs Date Time Temp Pulse Resp B/P B/P Pulse O2 O2 Flow FiO2 Mean Ox Delivery Rate 06/14 0937 98.7 69 20 120/62 06/14 0835 Room Air 06/14 0540 98.7 69 20 120/62 96 Room Air 06/13 2154 98.0 65 16 122/66 96 Room Air 06/13 1428 98.5 64 18 110/60 98 on exam; aoox3, nad. heent; the left above eye small Lac is improving. cv; s1,s2, rrr resp; clear abd; soft, nt, bs+ ext; no edema no labs. A/P; 71 y/o F with pmh sig for hypertension, glaucoma, dyslipidemia, alcohol abuse, parkinsonism admitted with a fall. Patient also had small forehead laceration which did not require any suturing. Overall doing well. Had a BBM yesterday. No pain. Will continue all current meds. DVt px; Lovenox. PT recommends STR. Once bed is available, will discharge her.
[2017-06-14 12:44] VITALS: BP 120/62
== END 2017-06-14 13:46 | DRG 556 ==
LOC: ERH 16:36 → 2NA 18:43 → ERHI 18:43 → ENRESERV 20:50 → ENTRNSPT 21:11 → 2NA 21:35 → CMPTRNSPT 21:44 → 2NA 06-13 09:26 → ENPENDDIS 06-14 12:04 → 2NA 06-14 13:46
PROVIDERS: Emergency Medicine
DX: R26.2 Difficulty in walking, not elsewhere classified (principal); G20 Parkinson's disease; E66.01 Morbid (severe) obesity due to excess calories; R00.1 Bradycardia, unspecified; Z68.41 Body mass index [BMI] 40.0-44.9, adult; W19.XXXA Unspecified fall, initial encounter; Z91.81 History of falling; I10 Essential (primary) hypertension; E78.5 Hyperlipidemia, unspecified; S01.112A Laceration without foreign body of left eyelid and periocular area, initial encounter; H40.9 Unspecified glaucoma; F10.10 Alcohol abuse, uncomplicated; Z88.0 Allergy status to penicillin; K59.00 Constipation, unspecified; F41.9 Anxiety disorder, unspecified; Z66 Do not resuscitate; R26.89 Other abnormalities of gait and mobility
CPT/HCPCS: 2NASP; 36592; 74176; 80307; 81003; 82436; 87086; 93005; 93010; 97110-GO; 97116-GO; 97161-GP; 97530-GO; G0480; J1650

== ENCOUNTER 2017-07-04 13:21 | Inpatient (IN) | payer OTHER, MEDICARE ==
[~2017-07-04] VITALS: Ht 144.8 cm; Wt 90.7 kg
[~2017-07-04 13:21] MED LIST changes: +PROPRANOLOL HCL80 M2 PO; +VITAMIN B-121000 MC3 PO; +VITAMIN D1000 UNIT PO
--- NOTE | 2017-07-04 13:57 | ED PSYCHIATRIC COMPLAINT ---
History of Present Illness General Chief Complaint: Psychiatric Related Complaint Stated Complaint: SI Source: patient, old records Exam Limitations: no limitations Vital Signs & Intake/Output Vital Signs & Intake/Output Vital Signs Date Time Temp Pulse Resp B/P B/P Pulse O2 O2 Flow FiO2 Mean Ox Delivery Rate 07/05 1944 96.6 68 122/63 07/05 1556 74 130/72 07/05 1231 82 112/74 07/05 0757 98.9 84 135/73 07/05 0753 98.6 54 16 133/61 07/05 0753 98.6 54 16 133/61 ED Intake and Output 07/05 0000 07/04 1200 Intake Total 0 Output Total Balance 0 Intake, Oral 0 Patient 200 lb Weight Weight Reported by Patient Measurement Method Allergies Coded Allergies: Penicillins (Intermediate, HIVES 07/04/17) Triage Note: PT TO ED FOR C/C OF +SI THAT STARTED A COUPLE OF MONTHS AGO. DOES NOT HAVE A PLAN "I DON'T KNOW HOW TO HURT MYSELF." PT DENIES HI/AH/VH. DENIES ETOH OR DRUG USE. Triage Nurses Notes Reviewed? yes Onset: Gradual Duration: constant Timing: recent history Severity: severe Severity Numbers: 10 HPI: PT IS A 72 Y/O FEMALE WITH A PMH OF anxiety, depression and vague SI, Parkinson' s hypertension hyperlipidemia who presents emergency room with cousin for concerns of suicide ideation for the past month. Patient was recently discharged from [facility] with the approximate 10 days ago where she currently lives in a private residence by herself for a visiting nurse arrived to the home became aware of patient's thoughts to no longer live Patient denies any new medications denies any illicit drug use drinks alcohol on occasion, nothing today Patient denies any auditory or visual hallucinations (Allen Suggs) Reconcile Medications Cyanocobalamin (Vitamin B-12) 1,000 MCG TABLET 1 TAB PO QPM SUPPLEMENT ( Reported) Escitalopram Oxalate (Lexapro) 20 MG TABLET 1 TAB PO DAILY ANXIETY (Reported) Gabapentin 300 MG CAPSULE 1 CAP PO TID ANXIETY (Reported) Propranolol HCl (Propranolol HCl ER) 80 MG CAP.SA.24H 1 CAP PO DAILY TREMORS (Reported) Sennosides/Docusate Sodium (Senna S Tablet) 8.6 MG-50 MG TABLET 2 TAB PO QPM CONSTIPATION (Reported) Simvastatin (Zocor*) 20 MG TABLET 1 TAB PO QPM CHOLESTEROL (Reported) Valsartan (Diovan) 80 MG TABLET 1 TAB PO DAILY HTN (Reported) (Andie MERAZ,Gordon Hernandez) Past History Travel History Traveled to [place] past 21 day No Medical History Any Pertinent Medical History? 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 No (Allen Suggs) Review of Systems Review of Systems Constitutional: Reports: see HPI. (Allen Suggs) Physical Exam Physical Exam General Appearance: no apparent distress, obese Head: atraumatic Eyes: Bilateral: normal appearance. Ears, Nose, Throat: hearing grossly normal Neck: normal inspection Respiratory: normal breath sounds Cardiovascular: regular rate/rhythm Neurological/Psychiatric: no motor/sensory deficits, awake Appearance/Memory/Insight: appropriate appearance, appropriate insight, denies illness Behavoir/Eye Contact/Speech: cooperative, normal speech, good eye contact Thoughts/Hallucinations: no apparent hallucination Skin: intact, normal color SAD PERSONS SAD PERSONS Response Value Age <19 or >45 years? yes 1 Depression/Hopelessness? yes 2 Previous Attempts/Psych Care yes 1 Single//? yes 1 Social Support? has support 0 Stated Future Intent? yes 2 Total 7 SAD PERSONS Done? yes (Allen Suggs) Progress Differential Diagnosis: drug intoxication, drug overdose, drug withdrawal, electrolyte abnormality, encephalitis, hypoglycemia, hypothyroidism, IC hem/mass /tumor, meningitis Plan of Care: Orders Procedure Date/time Status Regular Diet 07/05 B Active INIT HSP (30 MIN) 07/05 [facility] Complete Change service to 07/05 [facility] Active Lab Add-on Test 07/05 K Active Patient Data - inpatient psych 05/14 2045 Active Admit to inpatient psych 07/04 2045 Active Vital Signs 07/04 2008 Active Inpt Psych Teach/Educate 07/04 2008 Active Nutritional Intake, Monitor 07/04 2008 Active Inpt Psych Auricular Acupunctu 07/04 2008 Active TSH REFLEX 07/04 1504 Complete LIPID PANEL 07/04 1504 Complete GLYCOSYLATED HGB 07/04 1504 Complete Intake & Output 07/04 1445 Complete Activity/Ambulation 07/04 UNK Active Current Medications Sig/Erinn Start time Last Medication Dose Stop Time Status Admin Atorvastatin Calcium 10 MG 5PM 07/05 1700 AC 07/05 (Lipitor) 1709 Benztropine Mesylate 1 MG Q6P PRN 07/05 1030 AC (Cogentin 1 MG Tablet) Benztropine Mesylate 1 MG Q6P PRN 07/05 1030 AC (Cogentin) Gabapentin 300 MG Q6P PRN 07/05 1030 AC (Neurontin) Haloperidol 5 MG Q6P PRN 07/05 1030 AC (Haldol) Haloperidol 5 MG Q6P PRN 07/05 1030 AC (Haldol) Lorazepam 2 MG Q6P PRN 07/05 1030 AC (Ativan) Cyanocobalamin 1,000 MCG DAILY 07/05 0900 AC 07/05 (Vitamin B12) 0754 Escitalopram Oxalate 20 MG DAILY 07/05 0900 AC 07/05 (Lexapro) 0753 Losartan Potassium 25 MG DAILY 07/05 0900 AC 07/05 (Cozaar) 0753 Propranolol HCl 80 MG DAILY 07/05 0900 AC 07/05 (Inderal LA Cap) 0753 Hydroxyzine HCl 25 MG Q6P PRN 07/05 0615 AC 07/05 (Atarax) 0540 Trazodone HCl 50 MG AT BEDTIME NEED.. 07/05 0615 AC (Desyrel) Latanoprost 1 GTT AT BEDTIME 07/04 2300 AC 07/05 (Xalatan) 0146 Gabapentin 300 MG TID 07/04 2100 AC 07/05 (Neurontin) 1358 Senna/Docusate Sodium 2 TAB QPM 07/04 2100 AC 07/04 (Senokot S) 2228 Patient on initial presentation was cooperative and has unremarkable blood work and was cleared medically however patient was evaluated by crisis in which patient will be admitted to Inpatient Psychiatry for concerns of unspecified depression (Allen Suggs) Departure Departure Disposition: STILL A PATIENT Condition: Critical Clinical Impression Primary Impression: Depression Referrals: Jason MERAZ,Emeterio Aleman (PCP/Family) Departure Forms: Customer Survey General Discharge Information Psych Admission Note Psychiatric Admission: I have seen and evaluated BERYL PARRA. I have also reviewed all the pertinent lab results and diagnostic results. BERYL PARRA will be admitted to our inpatient Psychiatric unit for treatment and care. (Allen Suggs) PA/DENT REMOVER Co-Sign Statement Statement: ED Attending supervision documentation- [X] I saw and evaluated the patient. I have also reviewed all the pertinent lab results and diagnostic results. I agree with the findings and the plan of care as documented in the PA's/DENT REMOVER's documentation. [X] I have reviewed the ED Record and agree with the PA's/DENT REMOVER's documentation. [] Additions or exceptions (if any) to the PAs/DENT REMOVER's note and plan are summarized below: [Patient to be admitted for inpatient psychiatry for med stabilization and further management.] (Andie MERAZ,Gordon Hernandez) Critical Care Note Critical Care Note Critical Care Time: 30-74 min (Allen Suggs)
[2017-07-04] MEDS ORDERED: SENNA S TABLET1 EACH PO (14:38)
[2017-07-04 15:12] LABS: ABSOLUTE BASOPHIL COUNT 0.1 /CUMM (0.0-0.2); ABSOLUTE EOSINOPHIL COUNT 0.1 /CUMM (0.0-0.7); ABSOLUTE GRANULOCYTE CT 6.2 /CUMM (1.4-6.5); ABSOLUTE LYMPH COUNT 1.4 /CUMM (1.2-3.4); ABSOLUTE MONOCYTE COUNT 0.5 /CUMM (0.10-0.60); BASOPHIL % 0.9 % (0.0-2.0); EOSINOPHIL % 1.2 % (0-5); GRANULOCYTE % 74.4 % (42.2-75.2); HEMATOCRIT 37.3 % (37-47); MEAN CORPUSCULAR HGB 28.2 PG (27.0-31.0); MEAN CORPUSCULAR HGB CONC 33.3 G/DL (33.0-37.0); MEAN CORPUSCULAR VOLUME 84.4 FL (81.0-99.0); MEAN PLATELET VOLUME 7.3 FL (7.4-10.4); PLATELET COUNT 248 /CUMM (130-400); RBC DISTRIBUTION WIDTH 15.1 % (11.5-14.5); RED BLOOD CELL CT 4.41 /CUMM (4.20-5.40); WHITE BLOOD CELL COUNT 8.3 /CUMM (4.8-10.8)
--- NOTE | 2017-07-04 16:57 | ED PSYCH CRISIS CONSULTATION ---
See Addendum Crisis Consult Basic Assessment Date of Consult: 07/04/17 Responsible Person/Accompanied By: Cousin- Deb Hayward Insurance Authorization: Insurance #1: Insurance name: MEDICARE A Phone number: Policy number: [id number] Group number: Authorization number: ED Provider: Patient's ED Provider: Allen Suggs Primary Care Physician: Patient's PCP: Emeterio oGmez MD PCP's Current Psychiatrist: Dr. Schmidt in [place], [place] Chief Complaint: Psychiatric Related Complaint Patient's Quote: " I haven't been happy, I'm alone and disabled." Present Illness: The patient is a 72 year old, female presenting to the ED with worsening symptoms of depression and suicidal ideation. The patient presents alert and oriented with depressed mood and she appeared to be very anxious. The patient states that she has been feeling isolated and lonely with depression and anxiety, rating them both a 10 out of 10, 10 being the most severe. The patient states that she has also been feeling helpless, hopeless, useless and worthless with poor sleep and decreased motivation. She continues to endorse suicidal thoughts, noting that she has thought of multiple plans. She has been thinking of cutting her wrist, but states she doesn't like blood or taking an overdose, however states she does not know which pills to take or how many to take. She denies any history of suicide attempts or homicidal ideation. 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 She has had difficulty walking recently and spent some time in [place], after falling. She finds her medical issues to be very stressful, in addition to losing her three years ago and caring for her mother, who is disabled. She states that she has "Parkinson like movements," however reports that they were not able to determine the cause. The patient does not think that she needs to be here and would like to go home. met with the patients cousin, Deb Hayward ([phone]), for collateral information. Deb reports that the patient has been getting increasingly depressed and having difficultly taking care of her ADL's. Deb reports that the patient has been making suicidal statements and today was clear that she wants to and that she would end it. Deb reports that she spoke to the patients aide today, who stated the patient talked about taking an OD today and that she would slit her wrist, if it wasn't for the blood. Deb reports that the patient resides in her own home and isolates, in the dark for the majority of the time. Of note, she does have aides that come in daily from 4pm to 7pm. 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 Deb reports that the patient has been falling recently and spent some time in [facility]. Deb reports that the patient has been seeing Dr. Schmidt (psychiatrist in [place]), for about 5 years and has been talking to a therapist via phone. Deb believes that the patient has been inpatient at [facility] in the past. Deb reports that the patient has a history of abusing pills and possibly alcohol. Deb reports that this is the worse she has ever seen the patient and believes that she needs to be inpatient at this time. Patient's Address: [address] [place] [address] Other Phone Number: Who Do You Live With? Patient/Self Family/Informants Interviewed: Cousin- Deb [facility]- [phone] Allergies - Coded Allergies: Penicillins (Intermediate, HIVES 07/04/17) Current Medications - Scheduled Medications Cyanocobalamin (Vitamin B-12) 1,000 MCG TABLET 1 TAB PO QPM SUPPLEMENT ( Reported) Entered as Reported by Kandi Nolen on 06/11/17 1926 Escitalopram Oxalate (Lexapro) 20 MG TABLET 1 TAB PO DAILY ANXIETY (Reported) Entered as Reported by Perla Zayas on 09/09/14 1013 Gabapentin 300 MG CAPSULE 1 CAP PO TID ANXIETY #90 (Reported) Entered as Reported by [place] Ca on 06/10/17 0625 Propranolol HCl (Propranolol HCl ER) 80 MG CAP.SA.24H 1 CAP PO DAILY TREMORS # 30 (Reported) Entered as Reported by Kandi Nolen on 06/11/17 1927 Sennosides/Docusate Sodium (Senna S Tablet) 8.6 MG-50 MG TABLET 2 TAB PO QPM CONSTIPATION (Reported) Entered as Reported by Pop Diez on 07/04/17 1438 Simvastatin (Zocor*) 20 MG TABLET 1 TAB PO QPM CHOLESTEROL (Reported) Entered as Reported by Perla Zayas on 09/09/14 1012 Travoprost (Travatan Z) 0.004 % DROPS 1 GTT OPH QPM GLAUCOMA (Reported) Entered as Reported by Perla Zayas on 09/09/14 1013 Valsartan (Diovan) 80 MG TABLET 1 TAB PO DAILY HTN (Reported) Entered as Reported by Perla Zayas on 09/09/14 1012 Laboratory Results: Laboratory Tests 07/04/17 1642: Methadone Screen Pending, Barbiturate Screen Pending, Ur Phencyclidine Scrn Pending, Amphetamines Screen Pending, U Benzodiazepines Scrn Pending, Urine Cocaine Screen Pending, Urine Cannabis Screen Pending, Urine Color Pending, Urine Clarity Pending, Urine pH Pending, Ur Specific Anthon Pending, Urine Protein Pending, Urine Ketones Pending, Urine Nitrite Pending, Urine Bilirubin Pending, Urine Urobilinogen Pending, Ur Leukocyte Esterase Pending, Ur Microscopic Pending, Urine Hemoglobin Pending, Urine Glucose Pending 07/04/17 1504: Anion Gap 11, Estimated GFR > 60, BUN/Creatinine Ratio 13.8, Glucose 104 H, Calcium 9.3, Total Bilirubin 0.5, AST 11 L, ALT 15, Alkaline Phosphatase 72, Total Protein 6.7, Albumin 4.0, Globulin 2.7, Albumin/Globulin Ratio 1.5, CBC w Diff NO MAN DIFF REQ, RBC 4.41, MCV 84.4, MCH 28.2, MCHC 33.3, RDW 15.1 H, MPV 7.3 L, Gran % 74.4, Lymphocytes % 17.2 L, Monocytes % 6.3, Eosinophils % 1.2, Basophils % 0.9, Absolute Granulocytes 6.2, Absolute Lymphocytes 1.4, Absolute Monocytes 0.5, Absolute Eosinophils 0.1, Absolute Basophils 0.1, Serum Alcohol < 10.0 Past History Past Medical History Neurological: PARKINSONS LIKE SYMPTOMS EENT: glaucoma Cardiovascular: hypertension, hyperlipidemia Respiratory: TRACHEOTOMY Gastrointestinal: CONSTIPATION Hepatic: NONE Renal: NONE Musculoskeletal: chronic back pain, fracture, FOOT,SUE ARM COMPRESSION FX Psychiatric: anxiety Endocrine: NONE Blood Disorders: NONE Cancer(s): NONE 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 Physical Limitations (Interventions): She has recently had trouble with walking and falls, which resulted in a stay at [facility] Psychiatric Treatment History Psych Treatment Psychiatric Treatment Yes Inpatient Treatment Yes Outpatient Treatment Yes Location of Treatment [facility], Dr. Schmidt and a therapist (phone) in [place] Reason for Treatment Depression Dates of Treatment Current with Dr. Schmidt Response to Treatment Despite being seen by the psychiatrist she is struggling with her symptoms and having suicidal thoughts. Diagnosis by History: Anxiety and depression etoh use severe by hx Substance Use/Abuse History Drug Use/Abuse Substances Used/Abused No First Use N/A Last Used N/A How much used/taken N/A How often N/A For how long N/A Route of use N/A Substance Abuse Treatment Substance Abuse Treatment Past Substance Abuse [place] No Inpatient Treatment No Outpatient Treatment No Location of Treatment N/A Reason for Treatment N/A Dates of Treatment N/A Response to Treatment N/A Comments: Per records there was some history of alcohol abuse, the patient states there was a question of alcohol abuse in the past. She does deny ever having an issue with substance abuse. Current Mental Status Mental Status Orientation: Person, Place, Situation Affect: Anxious, Depressed Speech: WNL Neuro-vegetative: Helpless, Sleep Disturbance, Feeling hopeless, worthless, and useless, Decreased motivation Appearance Appearance- Dress/Hygiene: The patient was sitting in the chair, disheveled, and appeared to have involuntary movements. Behaviors Thought Process: WNL Thought Content: WNL Memory: WNL Insight: WNL SI/HI Risk Assessment Past Suicidal Ideation/Attempts Yes Current Suicidal Ideation/Att Yes Past Homicidal Ideation/Att: No Current Homicidal Ideation/Attempts No Degree of Intent: She denies any history of attemtps. She has been having increasing suicidal ideations, with multiple plans. The patient discussed cutting her wrist, but not liking blood. She also discussed taking pills, however states that she does not know what pills to take or how many to take. Danger To: Self Risk Factors: age (under 24/over 65), access to lethal means, chronic/serious med cond., high anxiety/distress, lives alone Lethality Ratin PTSD Checklist PTSD Done? patient declined (Denies trauma or abuse hx.) ED Management Sitter: Yes Restraints: No DSM5/PS Stressors/Medical Prob Diagnosis' (DSM 5, Stressors, Medical): F32.9 Unspecified Depressive Disorder Medical: Parkinson like involuntary movements, hypertension, hyperlipidemia, history of having a tracheostomy. She recently had trouble with falling and ambulating. Stressors: loss of 3 years ago, medical issues and taking care of a disabled mother. Current GAF: 28 Comments: N/A Departure Disposition Psych Medical Clearance Date: 07/04/17 Medically Cleared at: 1600 Time Started: 1615 Time Ended: 1715 Psychiatrist Consulted: Gemma Yoon MD Date Disposition Established: 07/04/17 Time Disposition Established: 1729 Plan for Disposition - Modality: Inpatient Psychiatry Facility: [facility] Rationale for Disposition: The patient presents with worsening symptoms of depression and suicidal ideations. She has thought of multiple plans, however finds faults with each plan. Her aide and cousin are very concerned that she will act on her thoughts. Case discussed with Dr. Yoon and she finds the patient to be an acute risk to self and in need of an inpatient admission. The patient signed in voluntarily. Type of IP Admission: Voluntary Additional Instructions: N/A Referrals Jason MERAZ,Emeterio Aleman (PCP/Family)
--- NOTE | 2017-07-04 19:30 | IP CRISIS DIAG ASSESS PSYCH ---
See Addendum Diagnostic Assessment Basic Assessment Insurance Authorization: Insurance #1: Insurance name: MEDICARE A Phone number: Policy number: [id number] Group number: Authorization number: Primary Care Physician: Patient's PCP: Emeterio Gomez MD PCP's Patient's Quote: " I haven't been happy, I'm alone and disabled." Present Illness: The patient is a 72 year old, female presenting to the ED with worsening symptoms of depression and suicidal ideation. The patient presents alert and oriented with depressed mood and she appeared to be very anxious. The patient states that she has been feeling isolated and lonely with depression and anxiety, rating them both a 10 out of 10, 10 being the most severe. The patient states that she has also been feeling helpless, hopeless, useless and worthless with poor sleep and decreased motivation. She continues to endorse suicidal thoughts, noting that she has thought of multiple plans. She has been thinking of cutting her wrist, but states she doesn't like blood or taking an overdose, however states she does not know which pills to take or how many to take. She denies any history of suicide attempts or homicidal ideation. 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 She has had difficulty walking recently and spent some time in [facility], after falling. She finds her medical issues to be very stressful, in addition to losing her three years ago and caring for her mother, who is disabled. She states that she has "Parkinson like movements," however reports that they were not able to determine the cause. The patient does not think that she needs to be here and would like to go home. met with the patients cousin, Deb Hayward ([phone]), for collateral information. Deb reports that the patient has been getting increasingly depressed and having difficultly taking care of her ADL's. Deb reports that the patient has been making suicidal statements and today was clear that she wants to and that she would end it. Deb reports that she spoke to the patients aide today, who stated the patient talked about taking an OD today and that she would slit her wrist, if it wasn't for the blood. Deb reports that the patient resides in her own home and isolates, in the dark for the majority of the time. Of note, she does have aides that come in daily from 4pm to 7pm. 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 Deb reports that the patient has been falling recently and spent some time in [facility]. Deb reports that the patient has been seeing Dr. Schmidt (psychiatrist in [place]), for about 5 years and has been talking to a therapist via phone. Deb believes that the patient has been inpatient at [facility] in the past. Deb reports that the patient has a history of abusing pills and possibly alcohol. Deb reports that this is the worse she has ever seen the patient and believes that she needs to be inpatient at this time. Patient's Address: [address] [place] [address] Other Phone Number: Who Do You Live With? Patient/Self Feel Safe Where You Live? Yes Feel Safe in Your Relationship No (Denies being in a relationship) If No, Please Elaborate: N/A Marital Status: Do You Have Children? No Primary Language? Slovak Family/Informants Interviewed: Cousin- Deb Hayward- [phone] Allergies - Coded Allergies: Penicillins (Intermediate, HIVES 07/04/17) Current Medications - Scheduled Medications Cyanocobalamin (Vitamin B-12) 1,000 MCG TABLET 1 TAB PO QPM SUPPLEMENT ( Reported) Entered as Reported by Kandi Nolen on 06/11/17 1926 Escitalopram Oxalate (Lexapro) 20 MG TABLET 1 TAB PO DAILY ANXIETY (Reported) Entered as Reported by Perla Zayas on 09/09/14 1013 Gabapentin 300 MG CAPSULE 1 CAP PO TID ANXIETY #90 (Reported) Entered as Reported by Paris Ca on 06/10/17 0625 Propranolol HCl (Propranolol HCl ER) 80 MG CAP.SA.24H 1 CAP PO DAILY TREMORS # 30 (Reported) Entered as Reported by Kandi Nolen on 06/11/17 1927 Sennosides/Docusate Sodium (Senna S Tablet) 8.6 MG-50 MG TABLET 2 TAB PO QPM CONSTIPATION (Reported) Entered as Reported by Pop Diez on 07/04/17 1438 Simvastatin (Zocor*) 20 MG TABLET 1 TAB PO QPM CHOLESTEROL (Reported) Entered as Reported by Perla Zayas on 09/09/14 1012 Travoprost (Travatan Z) 0.004 % DROPS 1 GTT OPH QPM GLAUCOMA (Reported) Entered as Reported by Perla Zayas on 09/09/14 1013 Valsartan (Diovan) 80 MG TABLET 1 TAB PO DAILY HTN (Reported) Entered as Reported by Perla Zayas on 09/09/14 1012 Consequences of Psych Med Use: N/A Comment: N/A Lab Results: Laboratory Tests 07/04/17 1642: Urine Opiates Screen < 100, Methadone Screen 66, Barbiturate Screen < 60, Ur Phencyclidine Scrn < 6.00, Amphetamines Screen < 100, U Benzodiazepines Scrn < 85, Urine Cocaine Screen < 50, Urine Cannabis Screen < 5.00, Urine Color YEL, Urine Clarity CLEAR, Urine pH 6.0, Ur Specific Kent 1.015, Urine Protein NEG, Urine Ketones NEG, Urine Nitrite NEG, Urine Bilirubin NEG, Urine Urobilinogen 0.2, Ur Leukocyte Esterase TRACE H, Ur Microscopic SEDIMENT EXAMINED, Urine RBC RARE, Urine WBC RARE, Ur Epithelial Cells RARE, Urine Bacteria RARE H, Hyaline Casts RARE H, Urine Mucus RARE, Urine Hemoglobin NEG, Urine Glucose NEG 07/04/17 1504: Anion Gap 11, Estimated GFR > 60, BUN/Creatinine Ratio 13.8, Glucose 104 H, Calcium 9.3, Total Bilirubin 0.5, AST 11 L, ALT 15, Alkaline Phosphatase 72, Total Protein 6.7, Albumin 4.0, Globulin 2.7, Albumin/Globulin Ratio 1.5, CBC w Diff NO MAN DIFF REQ, RBC 4.41, MCV 84.4, MCH 28.2, MCHC 33.3, RDW 15.1 H, MPV 7.3 L, Gran % 74.4, Lymphocytes % 17.2 L, Monocytes % 6.3, Eosinophils % 1.2, Basophils % 0.9, Absolute Granulocytes 6.2, Absolute Lymphocytes 1.4, Absolute Monocytes 0.5, Absolute Eosinophils 0.1, Absolute Basophils 0.1, Serum Alcohol < 10.0 Toxicology Screen Completed? Yes Results: negative Symptoms of Use: N/A Past History Past Surgical History Surgical History TRACHESTOMY L HIP FX Abuse/Trauma History Trauma History/Current Trauma: Denies Legal History Current Legal Status: none Have you ever been arrested? No Number of Arrests: [address] Dates: N/A Management Planner N/A Psychosocial History Strengths/Capabilities: The patient has a supportive family and has aides that come daily. Physical Limitations (Interventions): She has recently had trouble with walking and falls, which resulted in a stay at [facility] Psychiatric Treatment History Psych Treatment Psychiatric Treatment Yes Inpatient Treatment Yes Outpatient Treatment Yes Location of Treatment [facility], Dr. Schmidt and a therapist (phone) in [place] Reason for Treatment Depression Dates of Treatment Current with Dr. Schmidt Response to Treatment Despite being seen by the psychiatrist she is struggling with her symptoms and having suicidal thoughts. Diagnosis by History: Anxiety and depression etoh use severe by hx Risk Factors: age (under 24/over 65), access to lethal means, chronic/serious med cond., high anxiety/distress, lives alone Substance Use/Abuse History Drug Use/Abuse minimum 12mo Hx Substances Used/Abused No First Use N/A Last Used N/A How much used/taken N/A How often N/A For how long N/A Route of use N/A Substance Abuse Treatment Substance Abuse Treatment Past Substance Abuse TX No Inpatient Treatment No Outpatient Treatment No Location of Treatment N/A Reason for Treatment N/A Dates of Treatment N/A Response to Treatment N/A Comments: She denies any history of alcohol abuse, however there is some infoamtion in the records that states there was alcohol abuse. Sexual History Sexual Concerns: Unknown Education History Highest Level of Education: master's degree Preferred Learning Style: Unknown Current Mental Status Mental Status Orientation: Person, Place, Situation Affect: Anxious, Depressed Speech: WNL Neuro-vegetative: Helpless, Sleep Disturbance, Feeling hopeless, worthless, and useless Decreased motivation Appearance Appearance- Dress/Hygiene: The patient was sitting in the chair, disheveled, and appeared to have involuntary movements. Behaviors Thought Process: WNL Thought Content: WNL Memory: WNL Insight: WNL SI/HI Risk Assessment - Minimum 6mo History- Past Suicidal Ideation/Attempts Yes Current Suicidal Ideation/Att Yes Past Homicidal Ideation/Att: No Current Homicidal Ideation/Attempts No Degree of Intent: She denies any history of attemtps. She has been having increasing suicidal ideations, with multiple plans. The patient discussed cutting her wrist, but not liking blood. She also discussed taking pills, however states that she does not know what pills to take or how many to take. Danger To: Self Risk Factors: age (under 24/over 65), access to lethal means, chronic/serious med cond., high anxiety/distress, lives alone Lethality Ratin Needs/Init TX Plan/Goals: Admit the patient to the inpatient unit for safety and symptom stabilization. The patient will attend individual, family and group sessions. Work with the provider on medication evaluation. Work with the treatment team on transition back to care in the community. AUDIT-C Questionnaire: AUDIT-C Questionnaire: Response Value ETOH use in the past year Never 0 # drinks typical/day Doesn't Drink 0 6 or > drinks per occasion Never 0 Total 0 DSM5/PS Stressors/Medical Prob Diagnosis' (DSM 5, Stressors, Medical): F32.9 Unspecified Depressive Disorder Medical: Parkinson like involuntary movements, hypertension, hyperlipidemia, history of having a tracheostomy. She recently had trouble with falling and ambulating. Stressors: loss of 3 years ago, medical issues and taking care of a disabled mother. Current GAF: 28 Comments: N/A
[2017-07-05 07:57] VITALS: BP 135/73
--- NOTE | 2017-07-05 10:09 | History & Physical ---
General Information and HPI History of Present Illness: This middle-aged female is admitted to the hospital because of increasing depression and threatening suicide to her family and health aides. She reports she was feeling more depressed and therefore expressed the wish to kill herself but today does not feel the same and claims that she does not want to kill herself anymore. She did not try to overdose on any medication and was brought to the hospital by her cousin who was present when she made the threat. From physical standpoint she has a history of previous compression fractures and hip fracture. She also reports she has hypertension and hyperlipidemia for a long time and is treated for that and takes some eyedrops for glaucoma. 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 She denies smoking cigarettes or drinking alcohol and there is no history of any drug abuse. Her last hospital admission was for hip fracture followed by rehabilitation in the convalescent home. Allergies/Medications Allergies: Coded Allergies: Penicillins (Intermediate, HIVES 07/04/17) Home Med list Cyanocobalamin (Vitamin B-12) 1,000 MCG TABLET 1 TAB PO QPM SUPPLEMENT ( Reported) Escitalopram Oxalate (Lexapro) 20 MG TABLET 1 TAB PO DAILY ANXIETY (Reported) Gabapentin 300 MG CAPSULE 1 CAP PO TID ANXIETY (Reported) Propranolol HCl (Propranolol HCl ER) 80 MG CAP.SA.24H 1 CAP PO DAILY TREMORS (Reported) Sennosides/Docusate Sodium (Senna S Tablet) 8.6 MG-50 MG TABLET 2 TAB PO QPM CONSTIPATION (Reported) Simvastatin (Zocor*) 20 MG TABLET 1 TAB PO QPM CHOLESTEROL (Reported) Valsartan (Diovan) 80 MG TABLET 1 TAB PO DAILY HTN (Reported) Past History Travel History Traveled to [place] past 21 day No Medical History Neurological: PARKINSONS LIKE SYMPTOMS EENT: glaucoma Cardiovascular: hypertension, hyperlipidemia Respiratory: TRACHEOTOMY Gastrointestinal: CONSTIPATION Hepatic: NONE Renal: NONE Musculoskeletal: chronic back pain, fracture, FOOT,SUE ARM COMPRESSION FX Psychiatric: anxiety Endocrine: NONE Blood Disorders: NONE Cancer(s): NONE 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 self Services at Home: None Primary Language: Bhutanese ETOH Use: occasional use Illicit Drug Use: denies illicit drug use Functional Ability ADLs Independent: dressing, eating, toileting, bathing. Ambulation: independent IADLs Independent: shopping, housework, finances, food prep, telephone, transportation , medication admin. Review of Systems Review of Systems Constitutional: Denies: no symptoms, malaise, weakness. EENTM: Denies: no symptoms. Cardiovascular: Denies: no symptoms. Respiratory: Denies: no symptoms. GI: Denies: no symptoms. Genitourinary: Denies: no symptoms. Musculoskeletal: Reports: joint pain, muscle stiffness. Skin: Denies: no symptoms. Neurological/Psychological: Reports: see HPI, anxiety, depressed, emotional problems. Hematologic/Endocrine: Denies: no symptoms. All Other Systems: Reviewed and Negative Exam & Diagnostic Data Last 24 Hrs of Vital Signs/I&O Vital Signs Date Time Temp Pulse Resp B/P B/P Pulse O2 O2 Flow FiO2 Mean Ox Delivery Rate 07/05 0757 98.9 84 135/73 07/05 0753 98.6 54 16 133/61 07/05 0753 98.6 54 16 133/61 07/04 1902 98.6 54 16 133/61 98 Room Air 07/04 1526 99.8 109 20 125/65 98 Room Air 07/04 1347 98.7 76 15 113/71 93 Room Air Room Air Intake & Output 07/05 1600 07/05 0800 07/05 0000 Intake Total Output Total Balance Patient 200 lb Weight Physical Exam General Appearance Alert, Oriented X3, Cooperative, No Acute Distress Skin No Rashes, No Breakdown, No Significant Lesion HEENT Atraumatic, PERRLA, EOMI, Mucous Membr. moist/pink Neck Supple, No JVD, No thryomegaly, +2 Carotid Pulse wo Bruit Lymphatic Cervical nl Cardiovascular Regular Rate, Normal S1, Normal S2, No Murmurs, Gallops, Rubs Lungs Clear to Auscultation, Normal Air Movement Abdomen Normal Bowel Sounds, Soft, No Tenderness, No Hepatospenomegaly, No Masses Neurological Exam Findings: Normal Speech, Strength at 5/5 X4 Ext, Normal Tone, Cranial Nerves 3-12 NL, gait is unsteady and needs walker for stability Cranial Nerves II through XII: Within normal limits and intact Extremities No Clubbing, No Cyanosis, No Edema, No Tenderness/Swelling, osteoarthritic changes present all over Assessment/Plan Assessment: This elderly female is admitted for increasing depression and suicidal ideation. From medical standpoint she has long-standing hypertension and hyperlipidemia and glaucoma as well as some osteoarthritis and osteoporosis by history. Her physical exam is unremarkable and she does not have any acute medical illness at this time. Her admission blood work including a CBC electrolytes liver functions BUN/creatinine and sugar are essentially within normal limits and does not require any specific workup or treatment from medical standpoint. Her urine is negative for any drugs of abuse. We can continue her present dose of losartan as a replacement for Diovan that she was taking at home and continue her atorvastatin as well as eyedrops for her glaucoma. She does not need any new medication. As Ranked By This Provider Problem List: 1. Benign essential hypertension 2. Glaucoma 3. Hyperlipidemia 4. S/P FALL Miscellaneous Miscellaneous Documentation Attending Case Discussed With: Gemma Yoon MD Primary Care Physician: Emeterio Gomez MD Patient sees these Specialists none Level of Patient Care: JANET Daly Attending MD Review Statement Attending Statement Attending MD Statement: examined this patient, reviewed EMR data (avail), discussed with nursing Attending Assessment/Plan: This elderly female is admitted for increased depression and threatening suicide. From medical standpoint she has history of hypertension and hyperlipidemia and glaucoma and osteoarthritis as well as osteoporosis and previous hip fracture. She is fairly stable from medical standpoint without any acute medical problems at this time. We will continue her present medications including losartan and atorvastatin and she will be seen for follow-up as needed from medical standpoint. She does not require any other medical workup or treatment at this time.
[2017-07-05 12:31] VITALS: BP 112/74
[2017-07-05 15:56] VITALS: BP 130/72
--- NOTE | 2017-07-05 16:15 | SOCIAL WORKER PROG NOTE PSYCH ---
Social Work Progress Note Progress Note This technical proposal writer met with patient. She reported that she had an argument with her cousin (Deb) and home health aide (Rocio). Upon reporting SI, she stated that she was taken to ED. Patient denied SI to this technical proposal writer today. She denied HI/AH/VH. Patient stated that she is interested in a family meeting with her cousin and aide. She stated that she would like to return to therapy with Dr. Wallis and Ligia Tobin. She stated that she is not intersted in IOP as she has already attended and completed IOP. Patient stated that her visiting nurse services are through [facility].
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
--- NOTE | 2017-07-05 18:50 | SOCIAL WORKER SOCIAL HX PSYCH ---
Social History Basic Assessment Insurance Authorization: Insurance #1: Insurance name: MEDICARE [employer] Phone number: Policy number: [id number] Group number: Authorization number: Curr Source of Income/Entitlements: Senior Living Primary Care Physician: Patient's PCP: Emeterio Gomez MD PCP's Present Problem: Sw met with the patient who was lying in bed, with a euthymic mood and bright affect. She states that her mood is good and that she kept herself busy today. She denies any current SI or HI today. She would like to go home and try to keep herself busy. She does not want to attend [facility], as she states that she already completed one in the past. The patient is a 72 year old, female presenting to the ED with worsening symptoms of depression and suicidal ideation. The patient presents alert and oriented with depressed mood and she appeared to be very anxious. The patient states that she has been feeling isolated and lonely with depression and anxiety, rating them both a 10 out of 10, 10 being the most severe. The patient states that she has also been feeling helpless, hopeless, useless and worthless with poor sleep and decreased motivation. She continues to endorse suicidal thoughts, noting that she has thought of multiple plans. She has been thinking of cutting her wrist, but states she doesn't like blood or taking an overdose, however states she does not know which pills to take or how many to take. She denies any history of suicide attempts or homicidal ideation. 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 She has had difficulty walking recently and spent some time in [facility], after falling. She finds her medical issues to be very stressful, in addition to losing her three years ago and caring for her mother, who is disabled. She states that she has "Parkinson like movements," however reports that they were not able to determine the cause. Primary Language? Emirati Living Situation Rents or Owns Home? owns Residential Care/Treatment Fac N/A Feel Safe Where You Are Living Yes Feel Safe in Relationships? No (Denies being in a relationship) Comments: N/A Allergies - Coded Allergies: Penicillins (Intermediate, HIVES 07/04/17) Current Medications - Scheduled Medications Cyanocobalamin (Vitamin B-12) 1,000 MCG TABLET 1 TAB PO QPM SUPPLEMENT ( Reported) Entered as Reported by Kandi Nolen on 06/11/17 1926 Escitalopram Oxalate (Lexapro) 20 MG TABLET 1 TAB PO DAILY ANXIETY (Reported) Entered as Reported by Perla Zayas on 09/09/14 1013 Gabapentin 300 MG CAPSULE 1 CAP PO TID ANXIETY #90 (Reported) Entered as Reported by Paris Ca on 06/10/17 0625 Propranolol HCl (Propranolol HCl ER) 80 MG CAP.SA.24H 1 CAP PO DAILY TREMORS # 30 (Reported) Entered as Reported by Kandi Nolen on 06/11/17 1927 Sennosides/Docusate Sodium (Senna S Tablet) 8.6 MG-50 MG TABLET 2 TAB PO QPM CONSTIPATION (Reported) Entered as Reported by Pop Diez on 07/04/17 1438 Simvastatin (Zocor*) 20 MG TABLET 1 TAB PO QPM CHOLESTEROL (Reported) Entered as Reported by Perla Zayas on 09/09/14 1012 Valsartan (Diovan) 80 MG TABLET 1 TAB PO DAILY HTN (Reported) Entered as Reported by Perla Zayas on 09/09/14 1012 Discontinued Medications Travoprost (Travatan Z) 0.004 % DROPS 1 GTT OPH QPM GLAUCOMA (Reported) Discontinued reason: Medication Unavailable Consequences of Psych Med Use: N/A Comments: N/A Past History Past Medical History Neurological: PARKINSONS LIKE SYMPTOMS EENT: glaucoma Cardiovascular: hypertension, hyperlipidemia Respiratory: TRACHEOTOMY Gastrointestinal: CONSTIPATION Hepatic: NONE Renal: NONE Musculoskeletal: chronic back pain, fracture, FOOT,SUE ARM COMPRESSION FX Psychiatric: anxiety Endocrine: NONE Blood Disorders: NONE Cancer(s): NONE 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 Childhood Family Constellation: Mother and father Primary Childhood Caretakers: father, mother Family Life During Childhood: "good." DCF Involvement? No Mother's Age (Current/): 95 Relationship w/Mother: "Ok." She reports that her mother is disabled at this point and she has had to arrange aides to help her. Father's Age (Current/): 20 ( in his 80's) Relationship w/Father: "Good," prior to his passing. Any Sibling(s)? No Relationship w/Friends: She states that she does have friends and that those relationships are good. Family Psych/Sub Abuse/Add Hx: None noted Other Comments: N/A Abuse/Trauma History Trauma History/Current Trauma: Denies Legal History Legal Guardian/Address/Phone: Self Current Legal Status: none Pending Court Dates: N/A Have you ever been arrested No Number of Arrests: 0 Hx of Juvenile Legal Charges? No Hx of Adult Legal Charges? 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 Weaknesses: N/A Physical Limitations (Interventions): She has recently had trouble with walking and falls, which resulted in a stay at [facility] Last Physical: Uknown History of Seizures? No (Pt. denies) History of Blackouts? No (Pt. denies) ADL Limitations: None noted Snyder/Social/Peer Relations She states that she does have friends and that those relationships are good. Meaningful Activities: She reports that she likes to go to the movies and that her aides take her. Childhood Baptism: Mosque Current Hindu Affiliation: Mosque Is Spirituality Important to You? "Yes." Cultural/Ethnic Issues: None noted Are There Developmental Issues? No Milestones Achieved: fine motor, gross motor Psychiatric Treatment History Psych Treatment Inpatient Treatment Yes Outpatient Treatment Yes Location of Treatment [facility], Dr. Schmidt and a therapist (phone) in [place] Reason for Treatment Depression Dates of Treatment Current with Dr. Schmidt Response to Treatment Despite being seen by the psychiatrist she is struggling with her symptoms and having suicidal thoughts. 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 Schmidt and talks to a therapist via phone. Treatment of Prior Episodes: She has been in treatment at [facility] in the [facility]. 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 Risk Factors: age (under 24/over 65), access to lethal means, chronic/serious med cond., high anxiety/distress, lives alone Substance Use/Abuse History Drug Use/Abuse:Min 12 mo hx First Use N/A Last Used N/A How much used/taken N/A How often N/A For how long N/A Route of use N/A Have Had Periods of Sobriety? Yes Explain: She states that she has never had any history of drug or alcohol abuse, despite it being documented in the records. Relapse History? No Explain: N/A Have You Ever Attended AA? No Do You Attend AA Currently? No Do You Have a Sponsor? No Other Community Resources Used: None noted Symptoms of Use: N/A Substance Abuse Treatment Substance Abuse Treatment Inpatient Treatment No Outpatient Treatment No Location of Treatment N/A Reason for Treatment N/A Dates of Treatment N/A Response to Treatment N/A Comments: N/A Sexual History Sexual Concerns: None noted Education History Highest Level of Education: master's degree Highest Grade Completed: Graduated High School Vocational Year Completed: N/A Number of College Years: 6 College Degree/Major: Masters in teaching Other Degree(s): N/A Preferred Learning Style: Unknown HX of Learning Difficulties: None reported Barriers to Learning: None reported Special Communication Needs: None reported Employment History Employment Retired Not in Labor 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 of Jobs in Last 5 Years: 0 Attendance: N/A Comments: N/A History Have You Been in The ? No (Pt. denies) If Yes, Explain: N/A Type of Discharge: N/A Date of Discharge: N/A Current Mental Status Mental Status Orientation: Person, Place, Situation Affect: WNL Speech: WNL Neuro-vegetative: Helpless, Sleep Disturbance, Feeling hopeless, worthless, and useless Decreased motivation Appearance Appearance- Dress/Hygiene: The patient was lying in bed with good eye contact and participation in the evaluation. Behaviors Thought Process: WNL Thought Content: WNL Memory: WNL Insight: WNL SI/HI Risk Assessment Past Suicidal Ideation/Attempts Yes Current Suicidal Ideation/Att No Past Homicidal Ideation/Att: No Current Homicidal Ideation/Attempts No Degree of Intent: She denies any history of attemtps. She has been having increasing suicidal ideations, with multiple plans. The patient discussed cutting her wrist, but not liking blood. She also discussed taking pills, however states that she does not know what pills to take or how many to take. Danger To: Self Gravely Disabled: N/A Risk Factors: Access to lethal weapons, Age (under 24 or over 65), Chronic/ serious med cond, High Anxiety/Distress Lethality Ratin - Conclusion and Recommendations for treatment - and discharge planning Summary: The patient presents with a better mood and states that she was busy on the unit all day and is feeling better. The patient denies SI or HI. She reports that she would like to go home and "keep busy." She states she will return to her current providers and is not interested in IOP, as she states that she already attended an IOP session in the past.
[2017-07-05 19:45] VITALS: BP 122/63
[2017-07-06 08:07] VITALS: BP 123/64
[2017-07-06 11:46] VITALS: BP 112/57
--- NOTE | 2017-07-06 13:44 | CP SOUTH PROGRESS NOTE PSYCH ---
Psych (Inpt) Progress Note Progress Note Include the following elements, when applicable: Involvement in the active treatment of the patient with behavioral observations of the patient and the patient's response to the treatment. Review of the ongoing treatment process in the context of the treatment plan. Indication of how multi-disciplinary staff members are carrying out the treatment plan. Plans for future interventions and recommendations for revision of the treatment plan. Liaison with other physicians/providers. Progress Note: Case and treatment plan discussed in team meeting. Staff reports that the patient is denying suicidal ideation. Attending groups. Engaged here. Patient seen at 10:30 AM. She was in group prior to meeting with me in office. Using a walker. Eager for discharge. Feels okay. Wants to know what is going on next. Reports mood is good. Affect is calm and blunted to euthymic. Rates sad mood 0/10 and anxiety about 2/10. Denies feeling hopeless, helpless, worthless or guilty. Found hydroxyzine helpful for anxiety and trazodone helpful for insomnia. I informed her we will be stopping hydroxyzine because of the increased risk for falls and confusion with age. Patient agrees to an increase in standing gabapentin to 400 mg 3 times daily. PRN gabapentin is also available. Denies active and passive suicidal ideation. Denies homicidal ideation. Denies auditory and visual hallucinations and paranoid ideation. States she slept well with use of trazodone. Describes appetite and energy as okay. Tolerating medications well, without complaint. IMPRESSION: Slow progress. Continue present treatment plan. A family meeting will be important. Anticipate likely discharge on Tuesday. Patient refuses recommendation for IOP.
--- NOTE | 2017-07-06 15:15 | SOCIAL WORKER PROG NOTE PSYCH ---
See Addendum Social Work Progress Note Progress Note This business writer met with patient. She described her mood as "good. I feel better. " She denied SI/HI/AH/VH. Patient discussed enjoying movies and watching tv. She shared struggling with the loss of her (from cancer) 3 years ago and having a difficult time recovering from hip surgery. Regarding the latter, patient stated that she has been told that she will not likely recover any further than what she already has. Patient would like a meeting with her cousin , Deb, and aide, Rocio. This business writer left a vm for Rocio and Deb in interest of scheduling the family meeting. Rocio, the patient's aide, returned the call and a meeting is scheduled for 07/07/17 at 2:15pm. She stated that she would contact Deb to inform her of the time. Rocio also inquired about whether increased time should be offered to the patient. She stated that the patient is seen by an aide about two hours daily in the evening and that Rocio could increase this to an additional 4-5 hours per day. This business writer will discuss with the treatment team as well as the patient. Rocio was informed of a possible discharge on 07/08/17.
[2017-07-06 16:06] VITALS: BP 137/61
[2017-07-06 19:24] VITALS: BP 133/64
[2017-07-07 07:38] VITALS: BP 134/76
[2017-07-07 12:17] VITALS: BP 132/61
--- NOTE | 2017-07-07 13:16 | CP SOUTH PROGRESS NOTE PSYCH ---
Psych (Inpt) Progress Note Progress Note Include the following elements, when applicable: Involvement in the active treatment of the patient with behavioral observations of the patient and the patient's response to the treatment. Review of the ongoing treatment process in the context of the treatment plan. Indication of how multi-disciplinary staff members are carrying out the treatment plan. Plans for future interventions and recommendations for revision of the treatment plan. Liaison with other physicians/providers. Progress Note: Case and treatment plan discussed in team meeting. Staff reports that the patient is denying SI. Regrets having made suicidal statement(s). Does not want to downsize despite disability. Has 2:15 pm family meeting scheduled. Patient seen at 10:44 AM. She will in focus group prior to meeting with me in office. Anticipating family meeting at 2:15 PM with cousin and aide. Patient is using walker to help with ambulation. Feels good. Has no complaints. Affect is calm and blunted to euthymic. Mood is okay. Rates sad mood 0/10. Rates anxiety about 2/10. She guesses that gabapentin is helping because the anxiety is lower. Denies feeling hopeless, helpless, worthless or guilty. Denies active and passive suicidal ideation. Denies homicidal ideation. Denies auditory and visual hallucinations and paranoid ideation. Reports sleeping well with use of trazodone. Appetite is good. Energy is okay. Patient agrees to an increase in aide time at home. Tolerating medications well, without complaint. IMPRESSION: Slow progress. Continue present treatment plan. Await outcome of today's family meeting. Anticipate discharge tomorrow to home with follow up with outpatient treaters.
--- NOTE | 2017-07-07 15:04 | IP INCIDENTAL NOTE PSYCH ---
Incidental Note Notation: Message left for Dr. Wallis to call me.
[2017-07-07 15:43] VITALS: BP 115/71
--- NOTE | 2017-07-07 15:56 | IP INCIDENTAL NOTE PSYCH ---
Incidental Note Notation: Case d/w Dr. Wallis.
--- NOTE | 2017-07-07 17:38 | SOCIAL WORKER PROG NOTE PSYCH ---
Social Work Progress Note Progress Note Dr. Mario and this engineering writer met with the patient, her cousin (Deb) and her aide (Rocio) for a family meeting. Concerns regarding patients increased depression and isolation/decreased activity were discussed as well as the suicidal statements made by the patient prior to admission. Patient commented multiple times about not being ready to leave the house and not wanting to return to the intensity of an [facility] which she has done before. Patient's discharge plans were discusssed. Deb shared that the she felt that the patient needed more in- person individual therapy sessions as the patient only speaks to her therapist by phone due to not being able to use the stairs to have access to the therapist 's office. Patient struggled with the idea of finding a new therapist because "we have been together so long." This engineering writer informed patient that there are in home therapists and could provide her with the phone number if she is interested and would like to speak with her own therapist about it first. Patient was agreeable to this engineering writer contacting her therapist this afternoon ( left for JOAO Bezn at [phone] with call back number). Per Rocio, the collet making machine operator service can be increased to more hours as needed and as the patient can afford. Rocio and Deb inquired about [facility] utilizing a lock box for the patient's medications. They also asked how long the patient will be able to continue with the visiting nurse and PT. Patient was agreeable to utilizing some home health lpn hours through the visiting nurse service if available. In addition to returning to her psychiatrist for medication management, while patient was not willing to go to [facility], she was willing to go to [facility] for outpatient groups. Patient utilizes a walker on [facility] and states that she has one at home, as well as a cane, and therefore does not need a walker to be arranged for her upon discharge. This engineering writer spoke with Alyson at [facility]. She was informed that patient would discharge tomorrow around noon. Alyson stated that the patient has been receiving PT twice weekly, which will continue for the next 4 weeks or until no longer needed. In addition, she stated that her visiting nurse will also continue until no longer needed. Alyson will make a note for the patient to be assessed for a home health aide as well as the request for a lock box for her medications. [facility] intake appointment scheduled for , 07/04/17 at 11am with Rosaline Camejo LCSW.
[2017-07-07 20:28] VITALS: BP 128/71
[2017-07-08 07:50] VITALS: BP 136/69
[2017-07-08 07:52] VITALS: BP 136/69
[2017-07-08] MEDS ORDERED: TRAVATAN Z5 ML OU (10:22)
[2017-07-08] MEDS ORDERED: GABAPENTIN400 M2 PO (10:25)
[2017-07-08] MEDS ORDERED: TRAZODONE HCL50 M1 PO (10:25)
--- NOTE | 2017-07-08 10:33 | Patient Discharge Instructions ---
Psych Discharge Inst General Discharge Information Reason for Admission: Voiced suicidal ideation. Anxiety. Psy Discharge Primary Diag+ Major depression w/ anxious distress Psy Discharge Secondary Diag+ Overweight Glaucoma Hx L hip surgery Hypertension Hyperlipidemia Constipation Summary Tests/Major Procedures Lab 25-OH Vitamin D Total 7.2 ng/ml L 06/11/17 1733 AST 11 U/L L 07/04/17 1504 BUN 11 mg/dL 07/04/17 1504 Carbon Dioxide 27 mmol/L 07/04/17 1504 Chloride 104 mmol/L 07/04/17 1504 Cholesterol 157 MG/DL 07/04/17 1504 Cholesterol/HDL Ratio 3 % 07/04/17 1504 Creatinine 0.8 mg/dL 07/04/17 1504 Direct Bilirubin 0.5 mg/dL H 06/10/17 0324 Estimated GFR > 60 ml/min 07/04/17 1504 Glucose 104 mg/dL H 07/04/17 1504 HDL Cholesterol 45 mg/dL 07/04/17 1504 Hemoglobin A1c 5.4 % 07/04/17 1504 LDL Cholesterol, Calc 89 mg/dL 07/04/17 1504 Potassium 4.4 mmol/L 07/04/17 1504 Sodium 142 mmol/L 07/04/17 1504 TSH 1.930 uIU/mL 06/11/17 1733 TSH &T3 &Free T4 Intrp 0.998 uIU/mL 07/04/17 1504 Triglycerides 118 mg/dL 07/04/17 1504 Vitamin B12 > 1000 pg/mL H 06/11/17 1733 Hct 37.3 % 07/04/17 1504 Hgb 12.4 G/DL 07/04/17 1504 Lymphocytes % 17.2 % L 07/04/17 1504 MPV 7.3 FL L 07/04/17 1504 Plt Count 248 /CUMM 07/04/17 1504 RDW 15.1 % H 07/04/17 1504 WBC 8.3 /CUMM 07/04/17 1504 Serum Alcohol < 10.0 MG/DL 07/04/17 1504 Hyaline Casts RARE H 07/04/17 1642 Ur Epithelial Cells RARE 07/04/17 1642 Ur Leukocyte Esterase TRACE H 07/04/17 1642 Urine Bacteria RARE H 07/04/17 1642 Urine Mucus RARE 07/04/17 1642 Urine RBC RARE /HPF 07/04/17 1642 Urine WBC RARE /HPF 07/04/17 1642 SERVICE DATE: 06/11/17 EXAM TYPE: CAT - CT HEAD WO IV CONTRAST EXAMINATION: CT HEAD WITHOUT CONTRAST CLINICAL INFORMATION: Fall and head injury. COMPARISON: CT head 06/10/2017. TECHNIQUE: Contiguous axial imaging was performed from the skull base to vertex without intravenous administration of contrast. DLP: 884.41 mGy-cm FINDINGS: No acute intracranial trauma. Generalized parenchymal atrophy of the brain with proportion dilation of the ventricles, sulci, and basilar cisterns. There are intracranial atherosclerotic calcifications and subtle white matter hypodensity in the bilateral periventricular and subcortical white matter which are nonspecific but most consistent with sequela of chronic microvascular ischemia. These changes are unchanged from prior examination. There is no evidence of acute intracranial hemorrhage or territorial infarction. No abnormal mass effect or midline shift is seen. Farley to white matter differentiation is well preserved. No extra-axial fluid collections are identified. The osseous structures and soft tissues are normal. Partial opacification of a few left mastoid air cells, unchanged. Paranasal sinuses and mastoid air cells are otherwise clear and well aerated. IMPRESSION: Stable appearance of the brain. No acute intracranial trauma. Studies Pending at DC: None. Patient Instructions Contact Information Your Psychiatrist on [facility] was Rajiv Mario MD * If you are experiencing an emergency related to this hospitalization, please call [phone] to contact the treating psychiatrist or the psychiatrist-on- call. * To Request a copy of your medical records, please contact the Medical Records Department at [phone]. * To request results of studies pending at the time of discharge, please call [phone]. * Continue your Medications until directed to stop by your Healthcare provider. General Medication Information Please continue to take your new medications and your continued home medications , unless otherwise indicated on your discharge medication list, or unless directed by your MD or BACK TENDER [employer] to stop them. Special Instructions Diet Regular Activity As Tolerated Other Inst/Recommendations Please follow up with PCP about medical conditions/ labs. - Tobacco Use Treatment Offered Post DC Medications Offered: Not Applicable Post DC Tobacco Treatment Plan: Not Applicable - EtOH/Drug Use D/O Treatment Offered Post DC Medications Offered: NA-No EtOH/Drug Use D/O Post DC EtOH/SubAbuse TX Plan: NA-No EtOH/Drug Use D/O Metabolic Screening ([x]) Not Applicable, patient not on a neuroleptic. OR () Patient on a neuroleptic(s) . Enter below results for Hemoglobin A1C, and lipid panel if obtained during the last 365 days. BMI: 43.000 Blood Pressure: 136/69 Laboratory Results From [facility] (If applicable): Advance Directives Does the Patient have Medical Advance Directives No/Refused further info Does Pt have Psychiatric Advance Directives? No/Refused further info Does Patient have a Designated Surrogate Decision Maker: No Information About Psychiatric Advance Directives Provided? Refused Discharge Plan Post Hospital Treatment Plan: 1) Returning to home. 2) Increased number of hours from home health aide. 3) Follow up with Dr. Ferro at OPS. 4) Follow up with [facility]. 5) Follow up with group therapy at [facility]. 6) Visiting nurse services/med box/lock box.
--- NOTE | 2017-07-08 15:52 | CP SOUTH PROGRESS NOTE PSYCH ---
Psych (Inpt) Progress Note Progress Note Include the following elements, when applicable: Involvement in the active treatment of the patient with behavioral observations of the patient and the patient's response to the treatment. Review of the ongoing treatment process in the context of the treatment plan. Indication of how multi-disciplinary staff members are carrying out the treatment plan. Plans for future interventions and recommendations for revision of the treatment plan. Liaison with other physicians/providers. Progress Note: I attended family meeting yesterday with patient, patient's cousin, patient's aide, and with adoption social worker, Lexus. Patient's and family members' questions were addressed. Case and treatment plan discussed in team meeting. Staff reports that the patient is denying suicidal ideation. Indicating that she is happy to go. Feeling ready and motivated to go. A little anxious. Patient seen at 10:07 AM with Lexus Mendes LCSW. Patient states she is okay but is feeling scared. She is finding things overwhelming, for example, keeping track of appointment times and dates. Rates anxiety about 2/10 and sad mood 0/ 10. Denies feeling hopeless, helpless, worthless or guilty. Denies active and passive suicidal ideation. Denies homicidal ideation. Denies auditory and visual hallucinations and paranoid ideation. Reports she slept well with her medication. Appetite is okay. Energy is okay. Tolerating medications well, without complaint. Feels ready and safe for discharge. Refuses recommendation for IOP. Patient will have follow-up with Dr. Ferro and with [facility]' s outpatient groups and will have her home health aide. Patient will resume visiting nurse services. Patient is considering [facility] for in-home therapy. IMPRESSION: Condition improved. Okay for discharge today to home with follow-up as above.
--- NOTE | 2017-07-08 16:01 | DISCHARGE SUMMARY REPORT-PSYCH ---
Visit Information Visit Dates/Diagnosis' Admission Date: 07/04/17 Discharge Date: 07/08/17 Reason for Admission: Voiced suicidal ideation. Anxiety. Psy Discharge Primary Diag: Major depression w/ anxious distress Psy Discharge Secondary Diag: Overweight Glaucoma Hx L hip surgery Hypertension Hyperlipidemia Constipation Hospital Course Significant Lab Findings: Lab 25-OH Vitamin D Total 7.2 ng/ml L 06/11/17 1733 AST 11 U/L L 07/04/17 1504 BUN 11 mg/dL 07/04/17 1504 Carbon Dioxide 27 mmol/L 07/04/17 1504 Chloride 104 mmol/L 07/04/17 1504 Cholesterol 157 MG/DL 07/04/17 1504 Cholesterol/HDL Ratio 3 % 07/04/17 1504 Creatinine 0.8 mg/dL 07/04/17 1504 Direct Bilirubin 0.5 mg/dL H 06/10/17 0324 Estimated GFR > 60 ml/min 07/04/17 1504 Glucose 104 mg/dL H 07/04/17 1504 HDL Cholesterol 45 mg/dL 07/04/17 1504 Hemoglobin A1c 5.4 % 07/04/17 1504 LDL Cholesterol, Calc 89 mg/dL 07/04/17 1504 Potassium 4.4 mmol/L 07/04/17 1504 Sodium 142 mmol/L 07/04/17 1504 TSH 1.930 uIU/mL 06/11/17 1733 TSH &T3 &Free T4 Intrp 0.998 uIU/mL 07/04/17 1504 Triglycerides 118 mg/dL 07/04/17 1504 Vitamin B12 > 1000 pg/mL H 06/11/17 1733 Hct 37.3 % 07/04/17 1504 Hgb 12.4 G/DL 07/04/17 1504 Lymphocytes % 17.2 % L 07/04/17 1504 MPV 7.3 FL L 07/04/17 1504 Plt Count 248 /CUMM 07/04/17 1504 RDW 15.1 % H 07/04/17 1504 WBC 8.3 /CUMM 07/04/17 1504 Serum Alcohol < 10.0 MG/DL 07/04/17 1504 Hyaline Casts RARE H 07/04/17 1642 Ur Epithelial Cells RARE 07/04/17 1642 Ur Leukocyte Esterase TRACE H 07/04/17 1642 Urine Bacteria RARE H 07/04/17 1642 Urine Mucus RARE 07/04/17 1642 Urine RBC RARE /HPF 07/04/17 1642 Urine WBC RARE /HPF 07/04/17 1642 SERVICE DATE: 06/11/17 EXAM TYPE: CAT - CT HEAD WO IV CONTRAST EXAMINATION: CT HEAD WITHOUT CONTRAST CLINICAL INFORMATION: Fall and head injury. COMPARISON: CT head 06/10/2017. TECHNIQUE: Contiguous axial imaging was performed from the skull base to vertex without intravenous administration of contrast. DLP: 884.41 mGy-cm FINDINGS: No acute intracranial trauma. Generalized parenchymal atrophy of the brain with proportion dilation of the ventricles, sulci, and basilar cisterns. There are intracranial atherosclerotic calcifications and subtle white matter hypodensity in the bilateral periventricular and subcortical white matter which are nonspecific but most consistent with sequela of chronic microvascular ischemia. These changes are unchanged from prior examination. There is no evidence of acute intracranial hemorrhage or territorial infarction. No abnormal mass effect or midline shift is seen. Farley to white matter differentiation is well preserved. No extra-axial fluid collections are identified. The osseous structures and soft tissues are normal. Partial opacification of a few left mastoid air cells, unchanged. Paranasal sinuses and mastoid air cells are otherwise clear and well aerated. IMPRESSION: Stable appearance of the brain. No acute intracranial trauma. Course Complications: None. Consultations: The patient was seen for admission H&P by Dr. Jp Obregon. Per his note of 07/05: "Assessment: This elderly female is admitted for increasing depression and suicidal ideation. From medical standpoint she has long-standing hypertension and hyperlipidemia and glaucoma as well as some osteoarthritis and osteoporosis by history. Her physical exam is unremarkable and she does not have any acute medical illness at this time. Her admission blood work including a CBC electrolytes liver functions BUN/creatinine and sugar are essentially within normal limits and does not require any specific workup or treatment from medical standpoint. Her urine is negative for any drugs of abuse. We can continue her present dose of losartan as a replacement for Diovan that she was taking at home and continue her atorvastatin as well as eyedrops for her glaucoma. She does not need any new medication. As Ranked By This Provider Problem List: 1. Benign essential hypertension 2. Glaucoma 3. Hyperlipidemia 4. S/P FALL" Allergies: Coded Allergies: Penicillins (Intermediate, HIVES 07/04/17) Hospital Course/TX Response: The patient was monitored on the unit for safety and mood disorder. She participated in multimodal treatments on the unit. The patient reported regretting having made suicidal comments prior to admission. During this hospital stay, standing Neurontin was increased to 400 mg 3 times a day. PRN trazodone was available for insomnia. Lexapro was continued without change. Mood and affect have improved. Suicidal ideation has remitted. The patient has chronic issues with self-care for which she uses an aide at home. Progress note from date of discharge, 07/08/17: "I attended family meeting yesterday with patient, patient's cousin, patient's aide, and with social service assistant, Lexus. Patient's and family members' questions were addressed. Case and treatment plan discussed in team meeting. Staff reports that the patient is denying suicidal ideation. Indicating that she is happy to go. Feeling ready and motivated to go. A little anxious. Patient seen at 10:07 AM with Lexus Mendes LCSW. Patient states she is okay but is feeling scared. She is finding things overwhelming, for example, keeping track of appointment times and dates. Rates anxiety about 2/10 and sad mood 0/ 10. Denies feeling hopeless, helpless, worthless or guilty. Denies active and passive suicidal ideation. Denies homicidal ideation. Denies auditory and visual hallucinations and paranoid ideation. Reports she slept well with her medication. Appetite is okay. Energy is okay. Tolerating medications well, without complaint. Feels ready and safe for discharge. Refuses recommendation for IOP. Patient will have follow-up with Dr. Ferro and with [facility]' s outpatient groups and will have her home health aide. Patient will resume visiting nurse services. Patient is considering [facility] for in-home therapy. IMPRESSION: Condition improved. Okay for discharge today to home with follow-up as above." Discharge HBIPS - Tobacco Use Treatment Offered Post DC Medications Offered: Not Applicable Post DC Tobacco Treatment Plan: Not Applicable - EtOH/Drug Use D/O Treatment Offered Post DC Medications Offered: NA-No EtOH/Drug Use D/O Post DC EtOH/SubAbuse TX Plan: NA-No EtOH/Drug Use D/O Metabolic Screening - Screen if on a Neuroleptic Medication - Metabolic screening should include: - Blood Pressure, BMI, Glucose or Hgb A1c, & a - Lipid profile from within the past 365 days. Metabolic Screening ([x]) Not Applicable, patient not on a neuroleptic. OR () Patient on a neuroleptic(s) . Enter below results for Hemoglobin A1C, and lipid panel if obtained during the last 365 days. BMI: 43.000 Blood Pressure: 136/69 Laboratory Results From [facility] (If applicable): Discharge Instructions General Discharge Information Multiple Neuroleptics: ([x]) Not Applicable OR Document below three failed attempts at monotherapy, or a plan to taper to monotherapy, or augmentation of Clozapine. () Discharge Diet Regular Discharge Activity As Tolerated DC Disposition: Returning to home. Referrals Ordered Referrals Provider Referral 07/14/17 For Providers: [[facility]] For Groups: [[facility]] [facility] [address], [place] [phone] Intake appointment: , 07/14/17, at 11am with Rosaline Hale LCSW Provider Referral 07/21/17 For Providers: [[facility]] For Groups: [[facility]] [facility] [address], [place] [phone] Psychiatrist appointment: , 07/21/17, at 8:30am with Dr. Ferro Provider Referral 07/08/17 For Groups: [[facility]] [facility] [phone] Visiting nurse services will resume current services (visiting nurse and PT) today, 07/08/18. [facility] 3 times per week. Home health aide evaluation will be conducted on 07/08/17 or 07/09/17. Provider Referral For Groups: [JOAO Benz] JOAO Benz [phone] Patient will contact her therapist upon discharge. Provider Referral 07/08/17 For Groups: [Rocio Hanna] Rocio Hanna [phone] Aide services to resume on 07/08/17. Provider Referral For Groups: [Resources] Resources upon your request: [facility] ([facility]) [phone] Prescriptions Stop taking the following medications: Travoprost (Travatan Z) 0.004 % DROPS In the eye Every night Gabapentin (Gabapentin) 300 MG CAPSULE ORAL THREE TIMES DAILY Qty = 90 Continue taking these medications: Valsartan (Diovan) 80 MG TABLET 1 Tablet ORAL DAILY Comments: Last Taken:07/08/17 SUBSTITUTED WITH [facility] IN THE HOSPITAL Time:8AM Simvastatin (Zocor*) 20 MG TABLET 1 Tablet ORAL Every night Comments: Last Taken:07/07/17 LIPITOR 10MG SUBSTITUTED IN THE HOSPITAL Time:5PM Escitalopram Oxalate (Lexapro) 20 MG TABLET 1 Tablet ORAL DAILY Comments: Last Taken:07/08/17 Time:8AM Cyanocobalamin (Vitamin B-12) 1,000 MCG TABLET 1 Tablet ORAL Every night Comments: Last Taken:07/08/17 TIME:8AM Propranolol HCl (Propranolol HCl ER) 80 MG CAP.SA.24H 1 Capsule ORAL DAILY Qty = 30 Comments: Last Taken:07/08/17 Time:8AM Sennosides/Docusate Sodium (Senna S Tablet) 8.6 MG-50 MG TABLET 2 Tablet ORAL Every night Comments: Last Taken:07/07/17 Time:9:30PM Travoprost (Travatan Z) 0.004 % DROPS 1 Drop Both Eyes AT BEDTIME Comments: Last Taken:07/07/17 Time:9:30PM Start taking the following new medications: Trazodone HCl (Trazodone HCl) 50 MG TABLET 1 Tablet ORAL AT BEDTIME as needed for SLEEP Qty = 14 No Refills Comments: Last Taken:07/07/17 Time:8:30PM Gabapentin (Gabapentin) 400 MG CAPSULE 1 Capsule ORAL THREE TIMES DAILY Qty = 42 No Refills Comments: Last Taken:07/08/17 Time:8AM Other Inst/Recommendations Please follow up with PCP about medical conditions/ labs. Studies Pending at Discharge None. Copies To: DEANGELO FERRO MD
--- NOTE | 2017-07-08 18:02 | SOCIAL WORKER PROG NOTE PSYCH ---
Social Work Progress Note Progress Note This justowriter operator met with patient. She was agreeable to an appointment with OPS for medication management due to her psychiatrist informing Dr. Mario that he would not be willing to continue to treat her. Patient also accepted the intake appointment with OPS, at which time she will discuss outpatient groups (see appointments below). Patient identified a safety plan in which she would use the [facility] service. She stated that she would call them upon returning home to inform of discharge. She was also informed that she would be provided with crisis numbers and warm line numbers, which she agreed to utilize. Per patient, Rocio and Deb's request during yesterday's family meeting as well as patient' s reported interest in finding a therapist that could visit her at home, patient was provided with the [facility] number and would contact her therapist to discuss this further. Patient signed an SENTHIL for [facility] and this justowriter operator spoke with Ronda Fontenot to confirm that they could provide services should she decide to pursue the [facility] program. This justowriter operator met with the patient and Dr. Mario. She described her anxiety at a 04/02, identifying discharging as the reason for the anxiety. Patient stated that she had an ok appetite and energy and stated that she felt ready and safe to discharge today. This justowriter operator spoke with Alyson at [facility] to confirm discharge. Alyson stated that they would resume visiting nurse services and PT today. She stated that the patient would be assessed for home health aide services today or tomorrow. Finally, Alyson stated that the visiting nurse would visit the patient three times per week and a lock box will be utilized. Per patient, Alyson was informed that Rocio will retrieve the medications from [facility] in [place]. This justowriter operator spoke with patient's private aide, Rocio (who attended the meeting yesterday). Rocio and her team will provide services as follows: Rocio: -Tue, 9-12 Other aides with Rocio's team: daily 3:30/4-6/7pm This justowriter operator left a vm for patient's therapist, JOAO Benz at . A call back number was provided and Ligia was requested to provide her fax number so discharge documents could be sent. This justowriter operator reviewed discharge plans with the patient, and with her agreement, Rocio. Rocio will provide transportation home from the hospital today. Patient stated that she will call [facility] to inform of discharge upon arriving home and Rocio offered to assist if needed. Patient stated that she has a walker home as well as a cane. Rocio provided the cane upon arrival to [facility] for discharge. Per nursing staff, a wheel chair was called to utilize from [facility] to the car upon discharge. Faxed Referral(s) 1 Referred To: [facility] Transition of Care Documents sent: Health Summary, W10 Faxed to: [facility] Fax #: [phone] Faxed by: Floyd Mendes BLENDER/BRAZE APPLICATOR Date faxed: 07/08/17 Time Faxed: [phone] Faxed Referral(s) 2 Referred To: [facility] Transition of Care Documents sent: Health Summary Faxed to: [facility] Fax #: [phone] Faxed by: Alonzo MILLER Date faxed: 07/08/17 Time Faxed: [phone]
== END 2017-07-08 12:30 | DRG 881 ==
LOC: ERH 13:21 → ERHI 19:10 → CP SOUTH 19:10
PROVIDERS: Physician Assistant Medical
DX: F32.9 Major depressive disorder, single episode, unspecified (principal); E78.5 Hyperlipidemia, unspecified; H40.9 Unspecified glaucoma; I10 Essential (primary) hypertension; K59.00 Constipation, unspecified
CPT/HCPCS: 80307; 81001; G0480; J0515; J1630